=== PATIENT | male | born 1970 | race Caucasian/White ===

== ENCOUNTER 2023-11-06 18:28 | Emergency (ER) | payer BC, SELFPAY ==
[2023-11-06 18:30] VITALS: BP 184/115; PULSE 101; RESP 19; TEMP 36.8; O2SAT 96; BMI 29.1
[2023-11-06 18:31] VITALS: BP 184/115; PULSE 101; RESP 19; TEMP 36.8; O2SAT 96
--- NOTE | 2023-11-06 19:10 | ED.VIS.GI ---
HPI <DARON Manzanares - Last Filed: 11/06/23 20:52> HPI - GI History of Present Illness Chief Complaint: Abd Pain Narrative Narrative: Patient presenting today due to epigastric abdominal pain that radiates to his back that he has had over the past 3 days. He notices that when his stomach is empty his pain is worse, when he eats it seems to get better. He has been taking Tums and Pepto-Bismol which do provide some relief but only for short period of time. He does admit to daily alcohol use and usually drinks 8-10 beers per day. He also primarily eats fast food. He is a daily smoker and has a history of COPD and has been out of his albuterol inhaler. He has had a chronic dry cough for a few months. He denies melena but does report that he has noticed occasional bright red blood with wiping off and on for the past few months, this does not seem to be worse recently. He is unsure if he has hemorrhoids. He does not currently have a PCP and denies any history of abdominal surgery. PFSH <DARON Manzanares - Last Filed: 11/06/23 20:52> [facility] Home Medications ?Medication ?Instructions ?Recorded ?Last Taken ?Type albuterol sulfate 90 mcg/actuation 2 puff inhalation Q4H PRN PRN 11/06/23 Unknown History aerosol inhaler wheezing albuterol sulfate 90 mcg/actuation 1 - 2 puff inhalation Q4H PRN PRN 11/06/23 Unknown Rx aerosol inhaler (Ventolin HFA) Wheezing #1 inh pantoprazole 40 mg tablet,delayed 40 mg PO DAILY #20 tabs 11/06/23 Unknown Rx release (Protonix) Allergy/AdvReac Type Severity Reaction Status Date / Time No Known Allergies Allergy Verified 11/06/23 18:32 Social History Smoking Status: Unknown if ever smoked ROS <DARON Manzanares - Last Filed: 11/06/23 20:52> ROS ED Constitutional Constitutional ED: Denies fever(s) Cardiovascular Cardiovascular: Denies chest pain Respiratory/Chest Respiratory/Chest: Reports cough; Denies dyspnea Gastrointestinal Gastrointestinal: Reports abdominal pain and diarrhea; Denies constipation, melena, nausea or vomiting Genitourinary Genitourinary ED: Denies dysuria or urinary frequency Integumentary Denies rash Neurologic Neurologic: Denies weakness EXAM <DARON Manzanares - Last Filed: 11/06/23 20:52> Physical Exam Const Vital Signs: 11/06/23 18:30 11/06/23 18:31 11/06/23 19:29 Temperature 98.2 F 98.2 F Temperature Source Temporal Temporal Pulse Rate 101 H 101 H 106 H Respiratory Rate 19 H 19 H 16 Respiratory Pattern Normal Blood Pressure 184/115 H 184/115 H Blood Pressure Mean 138 138 Pulse Ox 96 96 Oxygen Delivery Method Room Air Room Air 11/06/23 19:31 11/06/23 20:26 Temperature 98 F 98 F Temperature Source Temporal Pulse Rate 98 91 Respiratory Rate 21 H 20 H Respiratory Pattern Blood Pressure 179/100 H 178/104 H Blood Pressure Mean 126 128 Pulse Ox 95 98 Oxygen Delivery Method Room Air Positive well nourished, well developed and no apparent distress General Appearance ED: well developed HEENT Reports normocephalic and head/scalp atraumatic Mouth ED: Yes moist mucous membranes normal Eyes PERRL and EOMs intact bilaterally Neck full ROM and supple Chest Wall inspection of chest normal Resp normal respiratory effort and clear to auscultation bilaterally Cardio regular rate and regular rhythm GI non-distended and no masses GI Narrative: Minimal epigastric tenderness to palpation, no rigidity, guarding, or peritoneal signs. Negative Bardales sign, negative McBurney's point tenderness. Palpation: soft Back/Spine normal ROM and normal to inspection Extremity normal to inspection and full ROM Neuro oriented x3, CN's II-XII intact bilaterally, moves all extremities, no focal motor deficits and no sensory deficits noted Sensorium / Orientation: awake and alert Psych mental status grossly normal and thought process normal Skin no rashes or lesions noted and no wounds <Dr. Isra Pozo DO - Last Filed: 11/06/23 20:34> Physical Exam Const Vital Signs: 11/06/23 18:30 11/06/23 18:31 11/06/23 19:29 Temperature 98.2 F 98.2 F Temperature Source Temporal Temporal Pulse Rate 101 H 101 H 106 H Respiratory Rate 19 H 19 H 16 Respiratory Pattern Normal Blood Pressure 184/115 H 184/115 H Blood Pressure Mean 138 138 Pulse Ox 96 96 Oxygen Delivery Method Room Air Room Air 11/06/23 19:31 11/06/23 20:26 Temperature 98 F 98 F Temperature Source Temporal Pulse Rate 98 91 Respiratory Rate 21 H 20 H Respiratory Pattern Blood Pressure 179/100 H 178/104 H Blood Pressure Mean 126 128 Pulse Ox 95 98 Oxygen Delivery Method Room Air [facility] <DARON Manzanares - Last Filed: 11/06/23 20:52> [facility] Narrative Medical decision making narrative: Patient presenting due to epigastric abdominal pain that he has had over the last several days. He does get some relief with Tums and Pepto-Bismol. He does admit to daily alcohol use and primarily eats fast food. I do think his examination is consistent with gastritis. He has a nonsurgical abdomen. He was given a GI cocktail and Protonix which did improve his symptoms. I will give him a prescription for Protonix. I did encourage alcohol and smoking cessation. I did give him information on 180. He reports that he has seen counselors in the past and has been in AA which he did not like. He is not interested in detoxing at this time. He was given breathing treatments here and an albuterol inhaler, chest x-ray negative for any acute findings encourage that he follow-up with his PCP and he will be discharged home in stable condition. I have personally performed a face to face assessment of the patient and have reviewed the MAR[facility] Note. I performed a substantive portion of the visit including all aspects of the following. My lozano findings include: History is 53-year-old alcoholic male sent to the emergency room by urgent care with a chief complaint of abdominal pain and wheezing. Patient is a heavy smoker and is out of his albuterol MDI. States he uses the MDI regularly. He notes over the past several days he has had diarrhea and epigastric discomfort. He notes no nausea or vomiting. He states he drinks heavily daily. He he is an alcoholic. The patient states that he feels better when he eats food but his pain gets worse when he does not have any food in his stomach. He denies any black stool. He sees a nurse practitioner in [place]. Exam is bilateral mild wheezing. No respiratory distress or increased work of breathing. Patient has a protuberant abdomen. Is nontender no guarding or rebound I would not characterize it as surgical. Underneath his tongue he has numerous varicosities but no jaundice. His eyes are light yellow it. Medical Decison Making my independent interpretation of the chest x-ray is no acute process. I will write for the patient to have an albuterol MDI. However he probably needs to be started on an inhaled corticosteroid. Would have him follow-up with primary care. His liver enzymes are consistent with alcohol use. Fortunately however his bilirubin is normal as is his lipase and his alkaline phosphatase platelet platelet count is also normal MCV though is noted to be 95.5. Patient understands that he needs to get help with his drinking but he has a hard time believing that he cannot stop on his own. Patient states he does not like the AA program. He states he is seeing numerous counselors for it. Patient was advised that he was slowly killing himself with his drinking and smoking. 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 I think the patient would benefit from Protonix daily. He received a GI cocktail while he was here which helped. Lab Data Lab results narrative: Sodium 134, creatinine 1.55, AST 60, ALT 80 Labs: Laboratory Results - last 24 hr 11/06/23 19:15 WBC 10.7 RBC 5.08 Hgb 16.5 Hct 48.5 MCV 95.5 H MCH 32.5 H MCHC 34.0 RDW Std Deviation 45.9 H RDW Coeff of Tracey 13.1 Plt Count 275 MPV 9.0 Immature Gran % (Auto) 0.500 Neut % (Auto) 73.3 H Lymph % (Auto) 15.7 L [place] % (Auto) 9.4 Eos % (Auto) 0.1 Baso % (Auto) 1.0 Absolute Neuts (auto) 7.8 H Absolute Lymphs (auto) 1.68 Nucleated RBC % 0 Sodium 134 L Potassium 4.1 Chloride 101 Carbon Dioxide 23.0 Anion Gap 10 BUN 15 Creatinine 1.55 H Estim Creat Clear Calc 68.24 Est GFR (MDRD) Af Amer 61 Est GFR (MDRD) Non-Af 50 L BUN/Creatinine Ratio 9.7 L Glucose 105 Calcium 9.8 Total Bilirubin 0.40 AST 60 H ALT 80 H Alkaline Phosphatase 91 Total Protein 8.3 H Albumin 3.7 Globulin 4.6 H Albumin/Globulin Ratio 0.8 L Lipase 30 Radiography Diagnostic Testing: Clinical Impression(s) from Imaging Studies Chest X-Ray 11/06/23 19:44 IMPRESSION: No acute findings in the chest. Electronically Signed: Ivan Castillo DO at 20:02 EDT , <Dr. Isra Pozo DO - Last Filed: 11/06/23 20:34> [facility] MDM Narrative Medical decision making narrative: I have personally performed a face to face assessment of the patient and have reviewed the MARGAUX Note. I performed a substantive portion of the visit including all aspects of the following. My lozano findings include: History is 53-year-old alcoholic male sent to the emergency room by urgent care with a chief complaint of abdominal pain and wheezing. Patient is a heavy smoker and is out of his albuterol MDI. States he uses the MDI regularly. He notes over the past several days he has had diarrhea and epigastric discomfort. He notes no nausea or vomiting. He states he drinks heavily daily. He he is an alcoholic. The patient states that he feels better when he eats food but his pain gets worse when he does not have any food in his stomach. He denies any black stool. He sees a nurse practitioner in [place]. Exam is bilateral mild wheezing. No respiratory distress or increased work of breathing. Patient has a protuberant abdomen. Is nontender no guarding or rebound I would not characterize it as surgical. Underneath his tongue he has numerous varicosities but no jaundice. His eyes are light yellow it. Medical Decison Making my independent interpretation of the chest x-ray is no acute process. I will write for the patient to have an albuterol MDI. However he probably needs to be started on an inhaled corticosteroid. Would have him follow-up with primary care. His liver enzymes are consistent with alcohol use. Fortunately however his bilirubin is normal as is his lipase and his alkaline phosphatase platelet platelet count is also normal MCV though is noted to be 95.5. Patient understands that he needs to get help with his drinking but he has a hard time believing that he cannot stop on his own. Patient states he does not like the AA program. He states he is seeing numerous counselors for it. Patient was advised that he was slowly killing himself with his drinking and smoking. 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 I think the patient would benefit from Protonix daily. He received a GI cocktail while he was here which helped. History & Record Review Discussion w/independent historian: Patient Lab Data Attestation: I reviewed the patient's lab results. Labs: Laboratory Results - last 24 hr 11/06/23 19:15 WBC 10.7 RBC 5.08 Hgb 16.5 Hct 48.5 MCV 95.5 H MCH 32.5 H MCHC 34.0 RDW Std Deviation 45.9 H RDW Coeff of Tracey 13.1 Plt Count 275 MPV 9.0 Immature Gran % (Auto) 0.500 Neut % (Auto) 73.3 H Lymph % (Auto) 15.7 L [place] % (Auto) 9.4 Eos % (Auto) 0.1 Baso % (Auto) 1.0 Absolute Neuts (auto) 7.8 H Absolute Lymphs (auto) 1.68 Nucleated RBC % 0 Sodium 134 L Potassium 4.1 Chloride 101 Carbon Dioxide 23.0 Anion Gap 10 BUN 15 Creatinine 1.55 H Estim Creat Clear Calc 68.24 Est GFR (MDRD) Af Amer 61 Est GFR (MDRD) Non-Af 50 L BUN/Creatinine Ratio 9.7 L Glucose 105 Calcium 9.8 Total Bilirubin 0.40 AST 60 H ALT 80 H Alkaline Phosphatase 91 Total Protein 8.3 H Albumin 3.7 Globulin 4.6 H Albumin/Globulin Ratio 0.8 L Lipase 30 Radiography Diagnostic Testing: Clinical Impression(s) from Imaging Studies Chest X-Ray 11/06/23 19:44 IMPRESSION: No acute findings in the chest. Electronically Signed: Ivan Castillo DO at 20:02 EDT , Discharge Plan Triage Chief Complaint: Abd Pain ED Midlevel Provider: Mary Dillard ED Provider: Isra Pozo Dx/Rx/DC Orders Clinical Impression: COPD (chronic obstructive pulmonary disease), Gastritis, Alcohol abuse Instructions: ED Gastritis (Adult), ED Alcohol Abuse Prescriptions: New pantoprazole [Protonix] 40 mg tablet,delayed release (DR/EC) 40 mg PO DAILY Qty: 20 0RF albuterol sulfate [Ventolin HFA] 90 mcg/actuation HFA aerosol inhaler 1 - 2 puff inhalation Q4H PRN PRN (Reason: Wheezing) Qty: 1 0RF No Action albuterol sulfate 90 mcg/actuation HFA aerosol inhaler 2 puff inhalation Q4H PRN PRN (Reason: wheezing) Stand Alone Forms: ED Work / School Excuse Primary Care Provider: Care Physician,No Primary Referrals: Care Physician,No Primary [Primary Care Provider] - Activity Restrictions/Additional Instructions: Try to avoid greasy, fried, and fast foods, a well-balanced diet with fruits and vegetables is encouraged. Your liver enzymes are elevated, [facility] [employer] is a resource in town if you decide you would like help with stopping drinking. [address] [place] [address]. ? . Follow-up with your PCP and return for any worsening of your symptoms. Print Language: Panamanian Disposition Disposition: Home, Self Care Discharge Date/Time: 11/06/23 20:27
[2023-11-06 19:23] LABS: Absolute Lymphocyte Count 1.68 X10^3/uL (0.83-4.51); Absolute Neutrophil Count 7.8 X10^3/uL (2.0-7.7); Basophil# 0.11 X10^3/uL; Eosinophil# 0.01 X10^3/uL; Eosinophils% 0.1 % (0-5); Hematocrit 48.5 % (40-54); Hemoglobin 16.5 g/dL (13.0-16.5); Lymphocyte # 1.68 X10^3/ul (0.83-4.51); Lymphocyte % 15.7 % (19-41); Mean Corpuscular Hgb 32.5 pg (27.0-32.0); Mean Corpuscular Volume 95.5 fL (80-94); Monocyte# 1.01 X10^3/uL; Monocyte% 9.4 % (0-10); NRBC Flagged by Analyzer 0 % (0-5); Neutrophil # 7.83 X10^3/uL (2.7-7.7); Neutrophil % 73.3 % (47-70); Platelet Count 275 K/mm3 (150-450); RBC Distribution Width CV 13.1 % (11.6-14.6); RBC Distribution Width SD 45.9 fl (35.1-43.9); Red Blood Count 5.08 M/mm3 (4.6-6.2); White Blood Count 10.7 K/mm3 (4.4-11.0)
[2023-11-06 19:29] VITALS: PULSE 106; RESP 16
[2023-11-06] MEDS: Albuterol 2.5 MG/3 ML VIAL.NEB. INHALATION (19:29)
[2023-11-06] MEDS: Mag Hydrox/Al Hydrox/Simeth 30 ML UDC PO (19:29)
[2023-11-06] MEDS: Ipratropium/Albuterol Sulfate 3 ML AMPUL.NEB INHALATION (19:29)
[2023-11-06] MEDS: Lidocaine 2% Viscous15 ML UDC 15 ML PO (19:29)
[2023-11-06 19:31] VITALS: BP 179/100; PULSE 98; RESP 21; TEMP 36.6; O2SAT 95
[2023-11-06 19:41] LABS: ALB/GLOB Ratio 0.8 RATIO (0.9-2.4); AST(SGOT) 60 U/L (15-37); Alanine Aminotransfer ALT/SGPT 80 U/L (16-61); Albumin, Serum 3.7 g/dL (3.2-5.0); Alkaline Phosphatase 91 U/L (45-117); Anion Gap 10 (5-15); BUN 15 mg/dL (7-18); BUN/Creat Ratio 9.7 RATIO (10-20); Calcium,Total 9.8 mg/dL (8.5-10.1); Chloride 101 mmol/L (98-107); Creatinine, Serum 1.55 mg/dL (0.70-1.30); EST Glomerular Filtration Rate 50 mL/min (>60); Est Glom Filt Rate - Afr Amer 61 mL/min (>60); Estimated Creatinine Clearance 68.24 ml/min; Globulin 4.6 g/dL (2.2-4.2); Glucose 105 mg/dL (74-106); Lipase 30 U/L (13-75); Potassium 4.1 mmol/L (3.5-5.1); Protein, Total 8.3 g/dL (6.4-8.2); Sodium Level 134 mmol/L (136-145)
--- NOTE | 2023-11-06 19:44 | RAD_ITS ---
EXAM: XR CHEST, 2 VIEWS CLINICAL INDICATION: cough TECHNIQUE: Frontal and lateral views of the chest. COMPARISON: No relevant prior studies available. FINDINGS: LUNGS AND PLEURAL SPACES: No significant abnormality. No consolidation or edema. No pneumothorax. No effusion. HEART: No significant abnormality. Cardiac silhouette not enlarged. MEDIASTINUM: Central airways and mediastinal contour are unremarkable. BONES/JOINTS: Degenerative changes in the spine. No acute fracture. SOFT TISSUES: No significant abnormality. VASCULATURE: Atherosclerosis. RAD/Chest PA and Lateral IMPRESSION: No acute findings in the chest. Electronically Signed: Ivan Castillo DO at 20:02 EDT ,
[2023-11-06] MEDS: Pantoprazole Sodium 40 MG in 0.9% Normal Saline (100mL MB+) 100 ML 330 MG IV (19:53)
[2023-11-06] MEDS: Albuterol Sulfate 8 gm Inhaler (60 puffs) 2 PUFF INHALATION (20:24)
[2023-11-06 20:26] VITALS: BP 178/104; PULSE 91; RESP 20; TEMP 36.6; O2SAT 98
== END 2023-11-06 20:27 | disposition home or self-care (01) ==
PROVIDERS: Physician Assistant; Emergency Provider Emergency Medicine; Visit Provider Emergency Medicine
DX: J44.9 Chronic obstructive pulmonary disease, unspecified (principal); F10.10 Alcohol abuse, uncomplicated; K29.70 Gastritis, unspecified, without bleeding; R19.7 Diarrhea, unspecified; F17.200 Nicotine dependence, unspecified, uncomplicated
CPT/HCPCS: 71046; 80053; 83690; 85025; 94640; 96365; 99283; J7050; A4216

== ENCOUNTER 2025-02-27 12:37 | Inpatient (IN) | payer SELFPAY ==
[2025-02-27] VITALS (9 sets, daily range): BP systolic 134–240; BP diastolic 79–138; PULSE 88–104; RESP 17–20; TEMP 35.9–37.1; O2SAT 95–99; BMI 30.4
--- NOTE | 2025-02-27 12:53 | EDS_ITS ---
HPI History of Present Illness Chief Complaint: [facility] Medications ?Medication ?Instructions ?Recorded ?Last Taken ?Type albuterol sulfate 90 mcg/actuation 2 puff inhalation Q 4H PRN PRN 11/06/23 Unknown History aerosol inhaler wheezing albuterol sulfate 90 mcg/actuation 1 - 2 puff inhalati on Q4H PRN PRN 11/06/23 Unknown Rx aerosol inhaler (Ventolin HFA) Wheezing #1 inh Allergy/AdvReac Type Severity Reaction Status Date / Time No Known Allergies Allergy Verified 02/27/25 12:40 Social History Smoking Status: Heavy Smoker (>10/day) EXAM Physical Exam Const Vital Signs: 02/27/25 12:38 Temperature 96.6 F L Temperature Source Temporal Pulse Rate 104 H Respiratory Rate 18 Blood Pressure 240/138 H Blood Pressure Mean 172 Pulse Ox 96 Oxygen Delivery Method Room Air [facility] MDM Narrative Medical decision making narrative: HISTORY OF PRESENT ILLNESS: Chief complaint: Alcohol detox 54-year-old male history of alcohol abuse, COPD presents with concern for alcohol abuse. Request admission for detox. No physical complaints at this time. No headache, no chest pain, abdominal pain, back pain or focal weakness REVIEW OF SYSTEMS: Pertinent positives: None reported Pertinent negatives: As per HPI PHYSICAL EXAM: Nursing triage notes reviewed, Vital signs reviewed Constitutional: please see mdm HENT: MMM Eyes: Pupils equal round and reactive to light, Extraocular muscles intact Neck: No stridor, no JVD, full neck ROM Lungs: Clear to auscultation, No wheezing or rales. No increased work of breathing, no conversational dyspnea, no accessory muscle use, no nasal flaring. No respiratory distress noted Heart: Regular rate and rhythm, No murmurs, No rubs and No gallops, 2+ distal pulses (radial, femoral, posterior tibial) in all extremities Abdomen: Soft, there is no tenderness, rigidity, rebound or guarding, no obvious peritoneal signs, no palpable pulsatile abdominal masses, no auscultated abdominal bruit : No CVAT Extremities: No edema Neuro: No new focal neurological deficits, cranial nerves II through XII intact, 5/5 strength in all present extremities. Intact sensation to light touch in all present extremities, 2+ reflexes bilateral patella tendons. Skin: No rash or lesions noted MEDICAL DECISION MAKING: Chief Complaint: please see HPI External records reviewed: Reviewed prior ED record from 2023 for which patient was evaluated for abdominal pain Factors affecting care: none Social determinants of health: none History obtained from others: none Consults: Internal medicine MDM Narrative: The patient is initially hypertensive with blood pressure 240/138, tachycardic. To be alcohol withdrawal I obtained labs for medical clearance ALL IMAGES (IF OBTAINED) HAVE BEEN PERSONALLY REVIEWED AND INTERPRETED BY MYSELF. CBC pending Serum alcohol negative BMP without significant electrolyte abnormalities, hyponatremia likely secondary to beer potomania, noted metabolic acidosis likely secondary to alcohol ketoacidosis, no acute kidney injury Urine tox screen positive cannabinoids otherwise negative On re-evaluation patient's blood pressure improved to 156/101 heart rate improved to 95 he is appropriate for admission with a ramp program Discussed with hospitalist who agreed admit the patient. The patient and/or family, caregivers express understanding. The patient and/or family, caregivers agrees with the plan. Shared decision making: I will have a discussion with the patient and or visitors regarding risk/benefits of further testing or admission. They will be made aware of of the risk/benefits inherent in this decision they will be given the opportunity to voice understanding. Total critical care time today provided was at least 0 minutes. This excludes separately billable procedures. Critical care time (if documented) is secondary to the patient having high probability of clinically significant/life threatening deterioration in the patient's condition which required my urgent intervention. Impression: 1. Alcohol abuse 2. Encounter for alcohol detox 3. Hyponatremia Dispo: Admit to [facility] floor This note was generated with [employer] dictation software. It may contain incorrect words, spelling, and punctuation that were not noted in review of the chart prior to signing. Discharge Plan Triage Chief Complaint: Substance Abuse ED Provider: Gerald Lenz Dx/Rx/DC Orders Prescriptions: No Action albuterol sulfate 90 mcg/actuation HFA aerosol inhaler 2 puff inhalation Q4H PRN PRN (Reason: wheezing) albuterol sulfate [Ventolin HFA] 90 mcg/actuation HFA aerosol inhaler 1 - 2 puff inhalation Q4H PRN PRN (Reason: Wheezing) Qty: 1 0RF Primary Care Provider: Care Physician,No Primary Referrals: NOT,DEFINED [Non-Staff, None] Print Language: Scottish
--- NOTE | 2025-02-27 13:30 | CM.ED ---
Social work Reason for referral: no PCP/insurance Referral source: case find SW identified patient's need for resources and entered patient's room, introducing self and role at [facility]. Patient confirmed lack of PCP due to wanting to change PCP. Patient accepted resources of [facility] Provider Directory and [facility] information. Patient stated living in a camper on patient's son's land. Patient stated needing to apply for Medicaid and patient agreed to having Larisa from [facility] help with this process. Patient stated having no SDOH concerns due to having patient's son there should patient ever be in need. SW called Larisa (ext [phone]) who stated ability to meet with patient following another meeting. No further needs identified at this time. Tasha Bunn, [employer], DATABASE ADMINISTRATION ASSOCIATE
[2025-02-27 13:47] LABS: Immature Granulocytes Count 0.020 X10^3/uL (0.0-0.0); Mean Corp Hgb Conc 37.9 g/dL (32-36); Mean Corpuscular Volume 94.7 fL (80-94); Mean Platelet Vol. 9.8 fl (6.2-12.0); NRBC Flagged by Analyzer 0 % (0-5); POSITIVE COUNT YES; RBC Distribution Width CV 13.9 % (11.6-14.6); RBC Distribution Width SD 48.7 fl (35.1-43.9); White Blood Count 8.5 K/mm3 (4.4-11.0)
[2025-02-27 13:54] LABS: Anion Gap 18 (5-15); BUN 16 mg/dL (4-19); BUN/Creat Ratio 13.9 RATIO (10-20); Calcium,Total 8.1 mg/dL (7.6-11.0); Carbon Dioxide 15.7 mmol/L (21.0-32.0); Chloride 93 mmol/L (98-108); Estimated Creatinine Clearance 91.18 ml/min (50-250); Glucose 181 mg/dL (70-99); Potassium 5.1 mmol/L (3.3-5.1)
[2025-02-27 14:04] LABS: Alcohol, Blood (Medical)-Serum < 10.1 mg/dL (<=10.0)
[2025-02-27] MEDS: Nicotine (PBKC) 21 MG Patch TD (14:26)
--- NOTE | 2025-02-27 14:54 | PCM.HP.STD ---
HPI - General General Date of Admission: 02/27/25 Date of Service: 02/27/25 Chief Complaint: Alcohol detox HPI Narrative JOLENE SAWYER, is a 54 M who presented to [facility] ED on 02/27/2025 for alcohol detox. History significant for alcohol abuse and tobacco dependence. He was last seen in the ED here in October 2023 for suspected alcoholic gastritis. Patient reports drinking 8-12 beers daily. Last drink was night prior to admission. Alcohol level negative in the ED. On arrival to the ED he was severely hypertensive to the 240s over 130s and had mild sinus tachycardia to the 100s. Was otherwise afebrile and stable on room air at rest. Stated that he typically drinks in the morning and felt like he was having alcohol withdrawal symptoms of anxiety and tremors. He was given doses of IV Ativan and p.o. phenobarbital in the ED with significant improvement in his blood pressure to the 140 systolic and heart rate to the 80s. Given desire for detox, hospitalist was contacted for admission. I saw the patient at bedside in the ED. Patient had mild somnolence and facial flushing noted but was otherwise sitting back comfortably in bed and answering questions appropriately. He reported that his withdrawal symptoms were moderately improved after doses of Ativan and phenobarbital. Notes that he has been through alcohol detox in the hospital before but it was over 10 years ago. He smokes about 1 pack of cigarettes daily. He has been told his blood pressure was high in the past but states he exercised more a few years ago and lost some weight with improvement in his blood pressure. Has never been on an antihypertensive before. Patient does report ongoing gastritis type symptoms, similar to what he reported at ED visit last year. States he will take Tums and Pepcid from time to time with only some improvement. Denies any significant acid reflux symptoms. No other acute concerns at this time. Will be admitted for further management. [facility] Home Medications ?Medication ?Instructions ?Recorded ?Last Taken ?Type albuterol sulfate 90 mcg/actuation 2 puff inhalation Q4H PRN PRN 11/06/23 Unknown History aerosol inhaler wheezing albuterol sulfate 90 mcg/actuation 1 - 2 puff inhalation Q4H PRN PRN 11/06/23 Unknown Rx aerosol inhaler (Ventolin HFA) Wheezing #1 inh Allergy/AdvReac Type Severity Reaction Status Date / Time No Known Allergies Allergy Verified 02/27/25 12:40 Social History Smoking Status: Heavy Smoker (>10/day) ROS Constitutional Constitutional: Denies chills, fatigue, fever(s) or weakness Cardiovascular Cardiovascular: Denies chest pain Respiratory/Chest Respiratory/Chest: Denies shortness of breath at rest Gastrointestinal Gastrointestinal: Denies abdominal pain, nausea or vomiting Musculoskeletal Musculoskeletal: Denies arthralgias or myalgias Neurologic Neurologic: Denies dizziness, focal weakness or headache(s) Psychiatric Psychiatric: Reports anxiety Vital Signs Vital Signs Vital Signs: 02/27/25 12:38 02/27/25 13:38 02/27/25 14:00 Temperature 96.6 F L Temperature Source Temporal Pulse Rate 104 H 97 95 Respiratory Rate 18 20 H 18 Blood Pressure 240/138 H 161/104 H 156/101 H Blood Pressure Mean 172 123 119 Pulse Ox 96 97 99 Oxygen Delivery Method Room Air Room Air Weight Weight: 101.803 kg Body Mass Index (BMI) 30.4 Physical Exam Const alert, oriented x3 and no apparent distress Constitutional Narrative: Middle-aged male, class I obesity, mild somnolence and facial flushing noted but otherwise sitting back comfortably in bed, answering questions appropriately, in no acute distress. General Appearance: cooperative and comfortable HEENT normocephalic, head/scalp atraumatic, hearing grossly normal bilaterally, nasal mucous membranes and turbinates normal and moist oral mucous membranes Eyes PERRL, EOMs intact bilaterally and conjunctivae normal Neck full ROM Chest inspection of chest normal Resp normal respiratory effort, normal air movement, no use of accessory muscles and clear to auscultation bilaterally Cardio regular rate, regular rhythm, no murmurs and peripheral pulses 2+ throughout GI normal to inspection, nondistended, normoactive bowel sounds, soft to palpation, non-tender and non-distended Back/Spine normal ROM Extremity normal to inspection, full ROM and no pedal edema Skin no rashes or lesions noted Psych mental status grossly normal Results Lab / Micro Data 02/27/25 12:58 02/27/25 12:58 Labs: Laboratory Results - last 24 hr 02/27/25 12:58: Sodium 126 L, Potassium 5.1, Chloride 93 L, Carbon Dioxide 15.7 L, Anion Gap 18 H, BUN 16, Creatinine 1.17, Estim Creat Clear Calc 91.18, Est GFR (MDRD) Non-Af 75, BUN/Creatinine Ratio 13.9, Glucose 181 H, Calcium 8.1, Ethyl Alcohol < 10.1 Assessment & Plan Assessment/Plan (1) Alcohol abuse: (2) Alcohol withdrawal: (3) Desire for detoxification: PLAN: Plan Patient is a 54-year-old male who presented to [facility] ED on 02/27/2025 for alcohol detox. 1. Alcohol abuse with withdrawal and desire for detox ? Admit under inpatient status to [facility]. Case management consulted. Reports drinking 8-12 beers daily. Last drink on night prior to admission. Alcohol level negative in the ED. Presented with acute withdrawal with severe hypertension, sinus tachycardia and anxiety with tremors that improved with doses of IV Ativan and p.o. phenobarbital. Will treat with phenobarbital and other as needed medications per alcohol withdrawal order set. Appreciate case management assistance. 2. Elevated BP readings ? Initial BP reading in the 240s over 130s in the ED which improved to the 140s over 90s with treatment of alcohol withdrawal. Suspect patient may still of some degree of underlying hypertension. Will order IV hydralazine as needed for SBP greater than 170. Monitor BP and can consider starting p.o. antihypertensives as needed. 3. Hyponatremia ? Sodium 126 on admit, chloride 93. No reported history of hyponatremia. Sodium 134 at ED visit in November 2023. Suspect secondary to poor solute intake in setting of daily beer drinking as above. Urine sodium, urine osmolality and serum osmolality ordered for further evaluation. Will give 1 L of IV normal saline at this time. Follow-up a.m. sodium level. 4. Mild anion gap metabolic acidosis ? Sodium 126, chloride 93, bicarb 15 with anion gap 18 on admit. Glucose normal. Seems most likely secondary to some degree of starvation ketosis in setting of poor solute intake. Given 1 L of normal saline as above and encouraged p.o. intake. Follow-up a.m. BMP. 5. Suspected alcoholic gastritis ? Patient seen in the ED back in November 2023 for symptoms of upper abdominal discomfort especially with eating. Was thought to be due to alcohol gastritis at the time. He was prescribed Protonix and instructed to take Tums as needed. States he had some improvement in his symptoms at that time but is now only been taking either the Protonix or Pepcid intermittently with worsening of symptoms over the past several months. Notes that the discomfort is typically worse with eating. Will reinitiate p.o. Protonix daily at this time. 6. Tobacco dependence ? Smokes about 1 pack of cigarettes daily. Nicotine patch ordered per patient request. Discussed cessation on discharge. 7. Asthma ? Stable on room air at rest, not in acute exacerbation. Continue home albuterol inhaler as needed. DVT prophylaxis: Lovenox CODE STATUS: Full code, verified Expected disposition: TBD Total clinical time spent by myself addressing the patient's medical issues, reviewing all the data, and collaborating with patient's care team: 63 minutes. Charges/Coding Visit Charges Inpatient E&M: 04626 Init Hosp L2
[2025-02-27 14:57] LABS: Barbiturate Urine NEGATIVE (< 200 ng/mL); Benzodiazepine Urine NEGATIVE (< 200 ng/mL); PCP Urine NEGATIVE (< 25 ng/mL); THC Urine PRESUMPTIVE POSITIVE (< 50 ng/mL)
[2025-02-27 15:58] LABS: Hematocrit 43.0 % (40-54); Hemoglobin 15.5 g/dL (13.0-16.5); Red Blood Count 4.45 M/mm3 (4.6-6.2)
[2025-02-27 15:59] LABS: Differential Indicated SCAN CRITERIA MET; Platelet Count 195 K/mm3 (150-450)
[2025-02-27 17:10] LABS: Osmolality, Serum 307 mOsm/KG (275-295)
[2025-02-27 17:18] LABS: Osmolality, Urine 477 mOsm/KG
[2025-02-27 17:53] LABS: AST(SGOT) 170 U/L (<=37); Alanine Aminotransfer ALT/SGPT 160 U/L (<=46); Albumin, Serum 3.4 g/dL (3.5-5.0); Alkaline Phosphatase 293 U/L (40-129); Bilirubin, Direct 0.48 mg/dL (0.00-0.30); Globulin 3.4 g/dL (2.2-4.2)
[2025-02-27 18:28] LABS: Cholesterol 531 mg/dL (<=200); Low Density Lipoprotein Calc. -349 mg/dL; Triglycerides 4368 mg/dL; Very Low Density Lipoprotein 874 mg/dL (5-40); cholesterol:hdl ratio screen 79.97
[2025-02-27] MEDS: hydrOXYzine PAM 25 MG Capsule 50 MG PO (18:54)
[2025-02-27] MEDS: 0.9% Saline Lock 10 ML Syringe IV (18:54)
[2025-02-27] MEDS: 0.9% Normal Saline (1000mL) 1,000 ML 500 ML IV (18:58)
[2025-02-27] MEDS: Oxymetazoline 0.05% 1 SPRAY SPRAY.BTL NASAL (22:58)
[2025-02-28] VITALS (7 sets, daily range): BP systolic 136–156; BP diastolic 83–97; PULSE 78–107; RESP 16–19; TEMP 36.3–36.9; O2SAT 95–98
--- OUTSIDE RECORDS SUMMARY | 2025-02-28 00:44 | XMS RPT_ITS | CCD ---
Author Organization [facility] Inform ion Partnership MEASUREMENT AND VERIFICATION ENGINEER [facility] Care Team Providers Care Senior Accounting Associate Name Role Phone PROVIDER, UNKNOWN Referring Unavailable No, PCP Primary Care Unavailable Denise Vaughan . Attending Unavailable Required, No Pcp Unavailable Unavailable Milly Chavez Unavailable Parvin ELECTRONIC PAGE MAKEUP SYSTEM OPERATOR.Sofie LOZANO Primary Care Provider Isra Pozo Attending Unavailable Care Physician, No Primary Primary Care Unava ilable SOFIE DONATO Attending Unavailable SOFIE DONATO Primary Care Unavailable Medications Current Medications Medication Drug Class(es) Dates Sig (Normalized) Sig (Original) acetaminophen 325 mg / HYDROcodone bitartrate 5 mg oral tablet (1 source) Opioid Agonist Start: 02-22-2021 End: 02-24-2021 take 1 tablet by mouth every six hours Curlew 5 mg-325 mg oral tablet ; 1 tab(s) orally every 6 hours Quantity: 12 Refills: 0 Ordered: 22-Feb-2021 Milly Chavez Start: 22-Feb-2021 End: 24-Feb-2021 Generic Substitution Allowed Comments: Caution [place] law prohibits the transfer of this drug to any person other than the person for whom it was prescribed.May cause drowsiness. Alcohol may intensify this effect. Use care when operating dangerous machinery.This product contains acetaminophen. Do not use with any other product containing acetaminophen to prevent possible liver damage.Using more of this medication than prescribed may cause serious breathing problems. Comment on above: Caution [place] law prohibits the transfer of this drug to any person other than the person for whom it was prescribed.May cause drowsiness. Alcohol may intensify this effect. Use care when operating dangerous machinery.This product contains acetaminophen. Do not use with any other product containing acetaminophen to prevent possible liver damage.Using more of this medication than prescribed may cause serious breathing problems. cephalexin 500 mg oral capsule (2 sources) Cephalosporin Antibacterial Start: 02-22-2021 End: 02-28-2021 take 1 capsule by mouth every six hours Keflex 500 mg oral capsule ; 1 cap(s) orally every 6 hours Quantity: 28 Refills: 0 Ordered: 22-Feb-2021 Milly Chavez Start: 22-Feb-2021 End: 28-Feb-2021 Generic Substitution Allowed Comments: Finish all this medication unless otherwise directed by prescriber. Start: 01-27-2014 End: 02-06-2014 take 1 tablet by mouth three times daily cephalexin 500 mg oral tablet ; 1 tab(s) orally 3 times a day Quantity: 30 Refills: 0 Ordered: 27-Jan-2014 Juan Pablo Solitario Start: 27-Jan-2014 End: 06-Feb-2014 Status: Completed Generic Substitution Allowed Comment on above: Finish all this medi cation unless otherwise directed by prescriber. perflutren lipid microspheres 1.3 mL in NaCl (PF) 0.9% 10 mL injection (DEFINITY) (2 sources) Start: 10-27-2022 End: 01-26-2024 perflutren lipid microspheres 1.3 mL in NaCl (PF) 0.9% 10 mL injection (DEFINITY) 125 ml sodium chloride 9 mg/ml prefilled syringe (2 sources) Start: 10-27-2022 End: 01-26-2024 sodium chloride 0.9 % (flush) 10 mL (BD POSIFLUSH) Completed/Discontinued Medications Medication Drug Class(es) Dates Sig (Normalized) Sig (Original) acetaminophen 325 mg / oxyCODONE hydrochloride 5 mg oral tablet (2 sources) Opioid Agonist Start: 01-27-2014 take 1 tablet by mouth every six hours acetaminophen-oxyC ODONE 325 mg-5 mg oral tablet ; 1 tab(s) orally every 6 hours Quantity: 20 Refills: 0 Ordered: 24-Feb-2014 Bernard Ruth Start: 24-Feb-2014 Status: Completed Generic Substitution Allowed Comments: Caution federal law prohibits the transfer of this drug to any person other than the person for whom it was prescribed.May cause drowsiness. Alcohol may intensify this effect. Use care when operating dangerous machinery.This prescription cannot be refilled.This product contains acetaminophen. Do not use with any other product containing acetaminophen to prevent possible liver damage.Using more of this medication than prescribed may cause serious breathing problems. Comment on above: Caution federal law prohibits the transfer of this drug to any person other than the person for whom it was prescribed.May cause drowsiness. Alcohol may intensify this effect. Use care when operating dangerous machinery.This prescription cannot be refilled.This product contains acetaminophen. Do not use with any other product containing acetaminophen to prevent possible liver damage.Using more of this medication than prescribed may cause serious breathing problems. [id number] 200 actuat albuterol 0.09 mg/actuat metered dose inhaler (6 sources) beta2-Adrenergic Agonist Start: 08-05-2021 End: 09-22-2022 take 2 puff(s) by inhalation every four hours as needed for wheezing albuterol HFA (PROAIR HFA) 90 mcg/actuation inhaler Indications: SOB (shortness of breath) Inhale 2 Puffs as instructed every 4 hours as needed for wheezing/shortness of breath. 1 Each 3 09/22/2022 Active ALBUTEROL HFA 90 MCG INHALER ; INHALE 1 2 PUFFS BY INHALATION ROUTE EVERY 6 HOURS NEEDED Quantity: 0 Refills: 1 Ordered: 22-Feb-2021 Angi Restrepo Generic Substitution Allowed Comments: Source=Surescripts, Medication=ALBUTEROL HFA 90 MCG INHALER, OriginatingSource=[employer] OriginatingProvider=JUAN, RICHARDS, Duration=25, Refills=1, Date Last Modified/Filled=04-Feb-2021 Comment on above: Source=Surescripts, Medication=ALBUTEROL HFA 90 MCG INHALER, OriginatingSource=[employer] [employer] OriginatingProvider=JUAN, RICHARDS, Duration=25, Refills=1, Date Last Modified/Filled=04-Feb-2021 Inhale 2 Puffs as in structed every 4 hours as needed for wheezing/shortness of breath. ascorbic acid 1000 mg extended release oral tablet (1 source) Vitamin C End: 08-28 Ascorbic Acid (VITAMIN C) 1,000 mg TbER Take by mouth. 0 09/22/2022 Discontinued Comment on above: Take by mouth. azelastine hydrochloride 0.137 mg/actuat metered dose nasal spray (1 source) Histamine-1 Receptor Antagonist Star t: 01-15 take 2 spray(s) nasal route once daily at bedtime azelastine 0.1% nasal spray Use 2 Sprays in each nostril daily at bedtime. 30 mL 5 11/03/2022 Active Comment on above: Use 2 Sprays in each nostril daily at bedtime. azithromycin 250 mg oral tablet (1 source) Macrolide Antimicrobial Star t: 07-27 End: 08-28 azithromycin (ZITHROMAX) 250 mg tablet Indications: Upper respiratory tract infection, unspecified type Take two tablets by mouth the first day and then one tablet a day for days 2-5 6 tablet 0 08/05/2021 09/22/2022 Discontinued Comment on above: Take two tablets by mouth the first day and then one tablet a day for days 2-5 dextromethorphan hydrobromide 15 mg / guaiFENesin 400 mg / pseudoephedrine hydrochloride 60 mg oral tablet (2 sources) alpha-Adrenergic Agonist, Uncompetitive S-fslmri-C-aspartate Receptor Antagonist, Sigma-1 Agonist Star t: 09-26 take 1 tablet by mouth every six hours as needed CAPMIST DM 60-15-400 mg tab TAKE 1 TABLET BY MOUTH EVERY 6 HOURS NEEDED FOR 5 DAYS 0 10/13/2022 Active Comment on above: TAKE 1 TABLET BY MISHEL EVERY 6 HOURS NEEDED FOR 5 DAYS fluticasone propionate 0.05 mg/actuat metered dose nasal spray (1 source) Corticosteroid Star t: 01-15 take 2 spray(s) nasal route once daily fluticasone (FLONASE) 50 mcg/actuation nasal spray Use 2 Sprays in each nostril once daily. 1 Each 5 11/03/2022 Active Comment on above: Use 2 Sprays in each nostril once daily. gabapentin 300 mg oral capsule (1 source) Anti-epileptic Agent Star t: 01-29 14 End: 02-26 14 take 1 capsule by mouth three times daily gabapentin 300 mg oral capsule ; 1 cap(s) orally 3 times a day Quantity: 30 Refills: 0 Ordered: 24-Feb-2014 Bernard Ruth Start: 24-Feb-2014 End: 06-Mar-2014 Status: Completed Generic Substitution Allowed Comments: It is very important that you take or use this exactly as directed. Do not skip doses or discontinue unless directed by your doctor.May cause drowsiness. Alcohol may intensify this effect. Use care when operating dangerous machinery. Comment on above: It is very important that you take or use this exactly as directed. Do not skip doses or discontinue unless directed by your doctor.May cause drowsiness. Alcohol may intensify this effect. Use care when operating dangerous machinery. hydrOXYzine pamoate 25 mg oral capsule (1 source) Antihistamine Star t: 07-27 22 End: 08-28 23 take 1 capsule by mouth every twenty-four hours as needed for anxiety and anxiety hydrOXYzine pamoate (VISTARIL) 25 mg capsule Indications: Anxiety Take 1 capsule by mouth at bedtime as needed for anxiety. 30 capsule 0 08/05/2021 09/22/2022 Discontinued Comment on above: Take 1 capsule by [facility] at bedtime as needed for anxiety. ibuprofen 800 mg oral tablet (1 source) Nonsteroidal Anti-inflammatory Drug Star t: 09-26 14 End: 09-27 14 take 1 tablet by mouth three times daily ibuprofen 800 mg oral tablet ; 1 tab(s) orally 3 times a day Quantity: 30 Refills: 0 Ordered: 14-Oct-2013 Jeremy Espino Start: 14-Oct-2013 End: 24-Oct-2013 Status: Completed Generic Substitution Allowed ketorolac tromethamine 10 mg oral tablet (1 source) Nonsteroidal Anti-inflammatory Drug, Cyclooxygenase Inhibitor Star t: 06-17 14 take 1 tablet by mouth every six hours as needed ketorolac 10 mg oral tablet ; 1 tab(s) orally every 6 hours, As Needed- for pain Quantity: 20 Refills: 0 Ordered: 27-Jan-2014 Juan Pablo Solitario Start: 27-Jan-2014 Status: Completed Generic Substitution Allowed Comments: It is very important that you take or use this exactly as directed. Do not skip doses or discontinue unless directed by your doctor.May cause drowsiness or dizziness.Obtain medical advice before taking any non-prescription drugs as some may affect the action of this medication.Take with food or milk. Comment on above: It is very important that you take or use this exactly as directed. Do not skip doses or discontinue unless directed by your doctor.May cause drowsiness or dizziness.Obtain medical advice before taking any non-prescription drugs as some may affect the action of this medication.Take with food or milk. montelukast 10 mg oral tablet (3 sources) Leukotriene Receptor Antagonist Star t: 08-28 End: 06-17 take 1 tablet by mouth once daily at bedtime montelukast (SINGULAIR) 10 mg tablet Indications: Chronic rhinosinusitis Take 1 tablet by mouth daily at bedtime. 30 tablet 2 09/22/2022 10/27/2022 Discontinued (Discontinued by Patient) Comment on above: Take 1 tablet by mishel th daily at bedtime. multivit,thx,calcium ,iron,mins (MULTIVITAMIN AND MINERAL ORAL) (1 source) End: 08-28 multivit,thx,calciu m,iron,mins (MULTIVITAMIN AND MINERAL ORAL) Take by mouth. 0 09/22/2022 Discontinued Comment on above: Take by mouth. Oxymetazoline (1 source) oxymetazoline HC l (AFRIN NASAL) Use in the nose. 0 Active Comment on above: Use in the nose. pseudoephedrine hydrochloride 30 mg oral tablet (1 source) alpha-Adrenergic Agonist take 1 tablet by mouth every four hours as needed pseudoephedrine (SUDAFED) 30 mg tablet Take 30 mg by mouth every 4 hours as needed. 0 Active Comment on above: Take 30 mg by mouth every 4 hours as needed. sulfamethoxazole 800 mg / trimethoprim 160 mg oral tablet (1 source) Dihydrofolate Reductase Inhibitor Antibacterial, Sulfonamide Antimicrobial Star t: 06-17 14 End: 01-27 14 take 1 tablet by mouth twice daily Bactrim DS 800 mg-160 mg oral tablet ; 1 tab(s) orally 2 times a day Quantity: 20 Refills: 0 Ordered: 27-Jan-2014 Juan Pablo Solitario Start: 27-Jan-2014 End: 06-Feb-2014 Status: Completed Generic Substitution Allowed Comments: Avoid prolonged or excessive exposure to direct and/or artificial sunlight while taking this medication.Finish all this medication unless otherwise directed by prescriber.Medicati on should be taken with plenty of water. Comment on above: Avoid prolonged or e xcessive exposure to direct and/or artificial sunlight while taking this medication.Finish all this medication unless otherwise directed by prescriber.Medication should be taken with plenty of water. Problems Active Problems Problem Classification Problem Date Documented Date Episodic/Chronic Abdominal pain (5 sources) Abdominal pain; Translations: [Unspecified abdominal pain] Onset: 07-12-2015 05-24-2021 Episodic Alcohol-related disorders (11 sources) Alcohol abuse; Translations: [Alcohol abuse, uncomplicated] Onset: 09-11-2010 05-06-2019 Chronic Anxiety disorders (1 source) Anxiety disorder, unspecified; Translations: [Anxiety] Onset: 10-04-2024 Chronic Chronic obstructive pulmonary disease and bronchiectasis (2 sources) Chronic obstructive pulmonary disease, unspecified; Translations: [Chronic obstructive pulmonary disease, unspecified] Onset: 06-27-2018 Chronic External cause codes: Unspecified (2 sources) Nosocomial condition; Translations: [Nosocomial condition] Onset: 06-27-2018 Heart valve disorders (1 source) Heart murmur; Translations: [Cardiac murmur, unspecified] Episodic Mood disorders (1 source) Major depressive disorder, single episode, moderate; Translations: [Current moderate episode of major depressive disorder, unspecified whether recurrent (HCC)] Onset: 10-04-2024 Chronic Open wounds of extremities (3 sources) Laceration of finger; Translations: [Open wound of finger] 02-22-2021 Episodic Comment on above: FINGER LACERATION Other ear and sense organ disorders (5 sources) Hearing problem; Translations: [Unspecified hearing loss, bilateral] Onset: 09-22-2022 Chronic Other ear and sense organ disorders (4 sources) Congenital deafness; Translations: [Unspecified sensorineural hearing loss] Onset: 07-13-2016 05-06-2019 Chronic Other fractures (1 source) Open fracture finger distal phalanx, tuft; Translations: [Aftercare for healing traumatic fracture of other bone] 02-22-2021 Episodic Other lower respiratory disease (2 sources) Cough; Translations: [Cough] Onset: 06-27-2018 Episodic Other lower respiratory disease (1 source) Dyspnea; Translations: [Shortness of breath] Episodic Other nervous system disorders (5 sources) Loss of sense of smell; Translations: [Anosmia] Onset: 09-22-2022 Episodic Other nervous system disorders (5 sources) Loss of taste; Translations: [Parageusia] Onset: 09-22-2022 Episodic Other upper respiratory disease (1 source) Chronic rhinitis; Translations: [Chronic rhinitis] Chronic Other upper respiratory disease (1 source) Chronic rhinitis; Translations: [Chronic rhinitis] Chronic Other upper respiratory disease (4 sources) Nasal congestion; Translations: [Nasal congestion] Onset: 09-22-2022 09-22-2022 Episodic Pneumonia (except that caused by tuberculosis or sexually transmitted disease) (2 sources) Pneumonia, unspecified organism; Translations: [Pneumonia, unspecified organism] Onset: 06-27-2018 Episodic Screening and history of mental health and substance abuse codes (1 source) Patient encounter status; Translations: [Encounter for screening for depression] Episodic Substance-related disorders (8 sources) Nicotine dependence, unspecified, uncomplicated; Translations: [Cigarette smoker ] Onset: 07-12-2015 Chronic Unclassified (1 source) Avulsion of finger tip 02-22-2021 Unclassified (1 source) Open fracture of tuft of distal phalanx of finger with routine healing 02-22-2021 Past or Other Problems Problem Classification Problem Date Documented Da te Episodic/Chronic Administrative/social admission (6 sources) Tobacco abuse counseling; Translations: [Homeless] Onset: 07-12-2015 05-24-2021 Episodic Other lower respiratory disease (4 sources) Cough; Translations: [Cough] Onset: 07-12-2015 05-24-2021 Episodic Other lower respiratory disease (1 source) Shortness of breath; Translations: [SOB (shortness of breath)] Onset: 10-04-2024 Episodic Other upper respiratory disease (1 source) Nasal congestion; Translations: [Chronic nasal congestion] Onset: 09-22-2022 Episodic Results Test Name Value Interpretation Reference Range Facility [facility] 02-10-2025 [facility] Telephone (AGPSYACC) -------- DIGNAYOGI ([id number]) 1970 M [place] Date Time Provider Department 02/10/25 ALESHA RACHEL During your visit today, we recorded the following information about you: Marissa Perez Petra 02/10/2025 9:18 AM Signed I called and lvm for patient to call to confirm the appointment rescheduled for 03/13/25 @ 1:00 pm. Marissa Perez February 10, 2025 9:18 AM Allergies As of Date: 02/10/2025 (No Known Allergies) Date Reviewed: 10/04/2024 Reviewed by: Sofie Donato APRN.CORN COOKER - Fully Assessed Prescriptions as of 02/10/2025 - albuterol HFA (PROVENTIL HFA, VENTOLIN HFA) 90 mcg/actuation inhaler INHALE 2 PUFFS BY MOUTH EVERY 4 HOURS NEEDED FOR WHEEZING or SHORTNESS OF BREATH - azelastine 0.1% nasal spray Use 2 sprays in each nostril daily at bedtime. - fluticasone (FLONASE) 50 mcg/actuation nasal spray Use 2 sprays in each nostril once daily. - citalopram hydrobromide (CELEXA) 10 mg tablet Take 1 tablet by mouth once daily. - oxymetazoline HCl (AFRIN NASAL) Use in the nose. - pseudoephedrine (SUDAFED) 30 mg tablet Take 30 mg by mouth every 4 hours as needed. - CAPMIST DM 60-15-400 mg tab TAKE 1 TABLET BY MOUTH EVERY 6 HOURS NEEDED FOR 5 DAYS Meds Comments as of 07/15/2015: Pt denies taking meds daily at home, pt states he has been taking valium 15mg every two hours. Problem List As Of Date 02/10/2025 Noted Resolved ETOH abuse [F10.10] 09/11/2010 Cough [R05.9] 07/12/2015 Abdominal pain [R10.9] 07/12/2015 Homeless [Z59.00] 07/12/2015 Smoking greater than 40 pack years [F17.210] 07/12/2015 Congenital hearing loss [H90.5] 07/13/2016 Chronic nasal congestion [R09.81] 09/22/2022 Loss of smell [R43.0] 09/22/2022 Loss of taste [R43.2] 09/22/2022 Hearing deficit, bilateral [H91.93] 09/22/2022 Uncomplicated alcohol dependence (HCC) [F10.20] 10/27/2022 Encounter Status:Closed by MARISSA PEREZ on 02/10/25 [facility]AG[facility] -------- YOGI SAWYER ([id number]) 1970 [facility] Date Time Provider Department 01/21/25 PSYCH AGPSYACC During your visit today, we recorded the following information about you: Marissa Perez 01/21/2025 10:07 AM Signed I called and left a voice message for the patient to call to schedule a Psychiatry appointment for AUD, Anxiety, Depression per referral from Sofie Donato on the [employer]. Marissa Perez January 21, 2025 10:07 AM Allergies As of Date: 01/21/2025 (No Known Allergies) Date Reviewed: 10/04/2024 Reviewed by: Sofie Donato, JOVANA.CORN COOKER - Fully Assessed Prescriptions as of 01/21/2025 - albuterol HFA (PROVENTIL HFA, VENTOLIN HFA) 90 mcg/actuation inhaler INHALE 2 PUFFS BY MOUTH EVERY 4 HOURS NEEDED FOR WHEEZING or SHORTNESS OF BREATH - azelastine 0.1% nasal spray Use 2 sprays in each nostril daily at bedtime. - fluticasone (FLONASE) 50 mcg/actuation nasal spray Use 2 sprays in each nostril once daily. - citalopram hydrobromide (CELEXA) 10 mg tablet Take 1 tablet by mouth once daily. - oxymetazoline HCl (AFRIN NASAL) Use in the nose. - pseudoephedrine (SUDAFED) 30 mg tablet Take 30 mg by mouth every 4 hours as needed. - CAPMIST DM 60-15-400 mg tab TAKE 1 TABLET BY MOUTH EVERY 6 HOURS NEEDED FOR 5 DAYS Meds Comments as of 07/15/2015: Pt denies taking meds daily at home, pt states he has been taking valium 15mg every two hours. Problem List As Of Date 01/21/2025 Noted Resolved ETOH abuse [F10.10] 09/11/2010 Cough [R05.9] 07/12/2015 Abdominal pain [R10.9] 07/12/2015 Homeless [Z59.00] 07/12/2015 Smoking greater than 40 pack years [F17.210] 07/12/2015 Congenital hearing loss [H90.5] 07/13/2016 Chronic nasal congestion [R09.81] 09/22/2022 Loss of smell [R43.0] 09/22/2022 Loss of taste [R43.2] 09/22/2022 Hearing deficit, bilateral [H91.93] 09/22/2022 Uncomplicated alcohol dependence (HCC) [F10.20] 10/27/2022 Encounter Status:Closed by MARISSA PEREZ on 01/21/25 [facility] 01-14-2025 [facility] Telephone (SoBiz10PSYACC) -------- YOGI SAWYER ([id number]) [address] [facility] Date Time Provider Department 01/14/25 PSYCH AGPSYACC During your visit today, we recorded the following information about you: Marissa Perez 01/14/2025 3:47 PM Signed I called and left a voice message for the patient to call to schedule a Psychiatry appointment for AUD, Anxiety, Depression per referral from Sofie Donato on the Work[employer]. Marissa Perez January 14, 2025 3:47 PM Allergies As of Date: 01/14/2025 (No Known Allergies) Date Reviewed: 10/04/2024 Reviewed by: Sofie Donato APRN.CORN COOKER - Fully Assessed Prescriptions as of 01/14/2025 - albuterol HFA (PROVENTIL HFA, VENTOLIN HFA) 90 mcg/actuation inhaler INHALE 2 PUFFS BY MOUTH EVERY 4 HOURS NEEDED FOR WHEEZING or SHORTNESS OF BREATH - azelastine 0.1% nasal spray Use 2 sprays in each nostril daily at bedtime. - fluticasone (FLONASE) 50 mcg/actuation nasal spray Use 2 sprays in each nostril once daily. - citalopram hydrobromide (CELEXA) 10 mg tablet Take 1 tablet by mouth once daily. - oxymetazoline HCl (AFRIN NASAL) Use in the nose. - pseudoephedrine (SUDAFED) 30 mg tablet Take 30 mg by mouth every 4 hours as needed. - CAPMIST DM 60-15-400 mg tab TAKE 1 TABLET BY MOUTH EVERY 6 HOURS NEEDED FOR 5 DAYS Meds Comments as of 07/15/2015: Pt denies taking meds daily at home, pt states he has been taking valium 15mg every two hours. Problem List As Of Date 01/14/2025 Noted Resolved ETOH abuse [F10.10] 09/11/2010 Cough [R05.9] 07/12/2015 Abdominal pain [R10.9] 07/12/2015 Homeless [Z59.00] 07/12/2015 Smoking greater than 40 pack years [F17.210] 07/12/2015 Congenital hearing loss [H90.5] 07/13/2016 Chronic nasal congestion [R09.81] 09/22/2022 Loss of smell [R43.0] 09/22/2022 Loss of taste [R43.2] 09/22/2022 Hearing deficit, bilateral [H91.93] 09/22/2022 Uncomplicated alcohol dependence (HCC) [F10.20] 10/27/2022 Encounter Status:Closed by MARISSA PEREZ on 01/14/25 [facility] 10-09-2024 [facility] Telephone (AGPositiveIDMPLE) -------- YOGI SAWYER ([id number]) 1970 [facility] Date Time Provider Department 10/09/24 SOFIE DONATO IGLESIAJARED During your visit today, we recorded the following information about you: Barney Redd Neva 10/09/2024 1:58 PM Signed Yogi came into office. He said he called Dr. Blakely's office and was told they were not accepting new patients. He said he was transferred to a scheduling who asked to many personal questions saying he has to have an assessment first before he could be transferred to an office to be scheduled. He was unset. Please advise pt Thank you Dilma Jade MA 10/10/2024 8:01 AM Signed Patient also left an upset VM stating they were recommending an Alcohol assessment. JERRY Whittaker Brittny A, APRN.CNP 10/10/2024 12:53 PM Signed There is a provider in [place] that he can contact to schedule an in person appointment. Олег Weaver- [phone] Brandi De La Garza 10/10/2024 12:58 PM Signed Left message for patient in reference to his request for a call back from the office Allergies As of Date: 10/09/2024 (No Known Allergies) Date Reviewed: 10/04/2024 Reviewed by: Sofie Donato APRN.BLAKE - Fully Assessed Reason for Visit: need referral [Other] Cmt: Pt called Dr. Blakely office and they are not accepting new patients Prescriptions as of 10/10/2024 - albuterol HFA (PROVENTIL HFA, VENTOLIN HFA) 90 mcg/actuation inhaler Inhale 2 puffs as instructed every 4 hours as needed for wheezing/shortness of breath. - azelastine 0.1% nasal spray Use 2 sprays in each nostril daily at bedtime. - fluticasone (FLONASE) 50 mcg/actuation nasal spray Use 2 sprays in each nostril once daily. - citalopram hydrobromide (CELEXA) 10 mg tablet Take 1 tablet by mouth once daily. - busPIRone (BUSPAR) 5 mg tablet Take 1 tablet by mouth three times a day as needed. - oxymetazoline HCl (AFRIN NASAL) Use in the nose. - pseudoephedrine (SUDAFED) 30 mg tablet Take 30 mg by mouth every 4 hours as needed. - CAPMIST DM 60-15-400 mg tab TAKE 1 TABLET BY MOUTH EVERY 6 HOURS NEEDED FOR 5 DAYS Meds Comments as of 07/15/2015: Pt denies taking meds daily at home, pt states he has been taking valium 15mg every two hours. Problem List As Of Date 10/09/2024 Noted Resolved ETOH abuse [F10.10] 09/11/2010 Cough [R05.9] 07/12/2015 Abdominal pain [R10.9] 07/12/2015 Homeless [Z59.00] 07/12/2015 Smoking greater than 40 pack years [F17.210] 07/12/2015 Congenital hearing loss [H90.5] 07/13/2016 Chronic nasal congestion [R09.81] 09/22/2022 Loss of smell [R43.0] 09/22/2022 Loss of taste [R43.2] 09/22/2022 Hearing deficit, bilateral [H91.93] 09/22/2022 Uncomplicated alcohol dependence (HCC) [F10.20] 10/27/2022 Encounter Status:Closed by BARNEY REDD on 10/09/24 [facility] Mitzy 10-07-2024 BLAKEN Telephone (SONY) -------- YOGI SAWYER ([id number]) 1970 M [place] Date Time Provider Department 10/07/24 SOFIE DONATO During your visit today, we recorded the following information about you: Faye Humphreys MA 10/07/2024 1:23 PM Signed Pt. Lm on stating dr. Flanagan office is not accepting new patients and he is completley out of medications. Please advise. Faye HumphreysJERRY Allergies As of Date: 10/07/2024 (No Known Allergies) Date Reviewed: 10/04/2024 Reviewed by: Sofie Donato APRN.CORN COOKER - Fully Assessed Reason for Visit: Patient Question [6186] Prescriptions as of 10/07/2024 - albuterol HFA (PROVENTIL HFA, VENTOLIN HFA) 90 mcg/actuation inhaler Inhale 2 puffs as instructed every 4 hours as needed for wheezing/shortness of breath. - azelastine 0.1% nasal spray Use 2 sprays in each nostril daily at bedtime. - fluticasone (FLONASE) 50 mcg/actuation nasal spray Use 2 sprays in each nostril once daily. - citalopram hydrobromide (CELEXA) 10 mg tablet Take 1 tablet by mouth once daily. - busPIRone (BUSPAR) 5 mg tablet Take 1 tablet by mouth three times a day as needed. - oxymetazoline HCl (AFRIN NASAL) Use in the nose. - pseudoephedrine (SUDAFED) 30 mg tablet Take 30 mg by mouth every 4 hours as needed. - CAPMIST DM 60-15-400 mg tab TAKE 1 TABLET BY MOUTH EVERY 6 HOURS NEEDED FOR 5 DAYS Meds Comments as of 07/15/2015: Pt denies taking meds daily at home, pt states he has been taking valium 15mg every two hours. Problem List As Of Date 10/07/2024 Noted Resolved ETOH abuse [F10.10] 09/11/2010 Cough [R05.9] 07/12/2015 Abdominal pain [R10.9] 07/12/2015 Homeless [Z59.00] 07/12/2015 Smoking greater than 40 pack years [F17.210] 07/12/2015 Congenital hearing loss [H90.5] 07/13/2016 Chronic nasal congestion [R09.81] 09/22/2022 Loss of smell [R43.0] 09/22/2022 Loss of taste [R43.2] 09/22/2022 Hearing deficit, bilateral [H91.93] 09/22/2022 Uncomplicated alcohol dependence (HCC) [F10.20] 10/27/2022 Encounter Status:Closed by FAYE HUMPHREYS on 10/07/24 [facility] CNOVon 10-04-2024 CNOV Office Visit (AGFAMP LE) -------- YOGI SAWYER ([id number]) [address] [facility] Date Time Provider Department 10/04/24 11:40 AM SOFIE DONATO During your visit today, we recorded the following information about you: Temperature Pulse Respiration Blood pressure 97.7 degrees 101/minute 18/minute 172/102 Weight Height 102.1 kg 1.816 m Sofie Donato APRN.CORN COOKER 10/05/2024 8:27 PM Signed CHIEF COMPLAINT: Yogi is a 54-year-old male with a history of paranoia, presenting for evaluation of depression and anxiety. I reviewed past medical, surgical, social, and family histories today and updated chart. Allergies, chronic medications, and supplements were also reviewed. Recording using Phase III Development software for draft documentation of the visit was discussed with the patient/authorized sales representative womens health; all questions welcomed and answered. Patient/authorized sales representative womens health agreed to proceed Depression: - Reports lack of motivation and desire to engage in activities, including work. - Has been calling off work frequently, missing 3-4 days per month over the past several months. - Describes feeling in a bad frame of mind and not wanting to do anything. - Denies feeling bad but acknowledges creating problems by not going to work. - Has been off work all week, missing Monday, Monday, and . - Has tried Wellbutrin in the past but is not currently taking it. - Expresses difficulty with medication adherence due to forgetfulness. - Has a history of being prescribed Zoloft and Risperdal by a psychiatrist 20-25 years ago. - Reports experiencing severe withdrawal symptoms from medications and is hesitant to take medications that require tapering. - Denies being diagnosed with bipolar disorder. - Has a history of being diagnosed with mild paranoia by a psychiatrist in [place]. - Expresses frustration with the cost of healthcare and insurance coverage. - Has a high deductible health plan with a $3,500 deductible and 80% coverage after the deductible is met. - Has an HSA but is concerned about the cost of medical visits and prescriptions. - Expresses frustration with the current state of healthcare and insurance, comparing it to the past when costs were lower. - Reports being a news junkie and feeling overwhelmed by the current state of the world. Anxiety: - Describes himself as a worry whore, constantly worried about something. - Reports feeling tight and anxious when trying to stop drinking alcohol. - Has a history of self-medicating with alcohol and marijuana to cope with anxiety. - Describes alcohol as the only time his brain quits being in overdrive. - Expresses a desire to stop drinking but struggles with anxiety and cravings. - Has tried Ativan in the past and found it helpful for anxiety. - Expresses a desire to try a medication that does not require daily dosing or tapering. PAST MEDICAL HISTORY Diagnosis Date COPD (chronic obstructive pulmonary disease) (HCC) ETOH abuse PAST SURGICAL HISTORY Procedure Laterality Date NONE Social History Tobacco Use Smoking status: Every Day Current packs/day: 1.50 Types: Cigarettes Smokeless tobacco: Current Types: Chew Vaping Use Vaping status: Never Used Substance Use Topics Alcohol use: Yes Comment: drinks beer a few times a week Drug use: Never ALLERGIES No Known Allergies Family History Problem Relation Age of Onset Diabetes Mother Heart disease Mother Obesity Mother Heart disease Father Current Outpatient Medications Medication Sig Dispense Refill albuterol HFA (PROVENTIL HFA, VENTOLIN HFA) 90 mcg/actuation inhaler Inhale 2 puffs as instructed every 4 hours as needed for wheezing/shortness of breath. 8.5 g 3 azelastine 0.1% nasal spray Use 2 sprays in each nostril daily at bedtime. 30 mL 5 fluticasone (FLONASE) 50 mcg/actuation nasal spray Use 2 sprays in each nostril once daily. 1 each 5 citalopram hydrobromide (CELEXA) 10 mg tablet Take 1 tablet by mouth once daily. 90 tablet 2 busPIRone (BUSPAR) 5 mg tablet Take 1 tablet by mouth three times a day as needed. 90 tablet 0 oxymetazoline HCl (AFRIN NASAL) Use in the nose. pseudoephedrine (SUDAFED) 30 mg tablet Take 30 mg by mouth every 4 hours as needed. (Patient not taking: Reported on 10/04/2024) CAPMIST DM 60-15-400 mg tab TAKE 1 TABLET BY MOUTH EVERY 6 HOURS NEEDED FOR 5 DAYS (Patient not taking: Reported on 11/03/2022) No current facility-administered medications for this visit. Review of Systems Ears/Nose/Mouth/Throat: (+) hearing changes Psychiatric: (+) depressed mood, (+) anxiety, (+) lack of motivation BP 172/102 Pulse 101 Temp (Src) 97.7 (Oral) Resp 18 Ht 5' 11.5 (1.82m) Wt 225 lb (102.1kg) SpO2 96% BMI 30.95 kg/(m2). Physical Exam GENERAL: NAD, alert and oriented. SKIN: Unremarkable, no rash or sk (more content not included)... Normal [facility] 10-04-2024 [facility] Telephone (PSYLWM) -------- YOGI SAWYER ([id number]) [address] [facility] Date Time Provider Department 10/04/24 ZORA DUTTA PSYLWM During your visit today, we recorded the following information about you: Donta Wing RN 10/04/2024 12:44 PM Signed Patient calls to schedule a new patient appt with Zora. Referred from Sofie Reeves CNP. Patient requests call back at [phone]. ADONAY Alaniz M Robin, RN 10/07/2024 12:21 PM Signed Pt phoned to check if he can schedule an appt with Zora. Reports he was seen at [facility] last Monday for anxiety/depression. Per encounter's pt saw Sofie Donato CNP, at [facility]. Pt reports Parvin told him to see Zora. Asking if he is going to be able to schedule an appt with Zora? Please advise patient. Zora Dutta APRN.CNP 10/07/2024 1:06 PM Signed Unfortunately I am not able to accept new patients at this time. Please have them call [phone] to schedule an appointment for a virtual visit with another [facility] Provider in our department. They can also call [phone] to schedule an appointment in person or virtual with a [facility] Provider. Donta Wing RN 10/10/2024 11:29 AM Signed See TE 10/09/2024. Donta Wing RN Allergies As of Date: 10/04/2024 (No Known Allergies) Date Reviewed: 10/04/2024 Reviewed by: Sofie Donato APRN.BLAKE - Fully Assessed Reason for Visit: Appointment [[id number]] Prescriptions as of 10/10/2024 - albuterol HFA (PROVENTIL HFA, VENTOLIN HFA) 90 mcg/actuation inhaler Inhale 2 puffs as instructed every 4 hours as needed for wheezing/shortness of breath. - azelastine 0.1% nasal spray Use 2 sprays in each nostril daily at bedtime. - fluticasone (FLONASE) 50 mcg/actuation nasal spray Use 2 sprays in each nostril once daily. - citalopram hydrobromide (CELEXA) 10 mg tablet Take 1 tablet by mouth once daily. - busPIRone (BUSPAR) 5 mg tablet Take 1 tablet by mouth three times a day as needed. - oxymetazoline HCl (AFRIN NASAL) Use in the nose. - pseudoephedrine (SUDAFED) 30 mg tablet Take 30 mg by mouth every 4 hours as needed. - CAPMIST DM 60-15-400 mg tab TAKE 1 TABLET BY MOUTH EVERY 6 HOURS NEEDED FOR 5 DAYS Meds Comments as of 07/15/2015: Pt denies taking meds daily at home, pt states he has been taking valium 15mg every two hours. Problem List As Of Date 10/04/2024 Noted Resolved ETOH abuse [F10.10] 09/11/2010 Cough [R05.9] 07/12/2015 Abdominal pain [R10.9] 07/12/2015 Homeless [Z59.00] 07/12/2015 Smoking greater than 40 pack years [F17.210] 07/12/2015 Congenital hearing loss [H90.5] 07/13/2016 Chronic nasal congestion [R09.81] 09/22/2022 Loss of smell [R43.0] 09/22/2022 Loss of taste [R43.2] 09/22/2022 Hearing deficit, bilateral [H91.93] 09/22/2022 Uncomplicated alcohol dependence (HCC) [F10.20] 10/27/2022 Encounter Status:[facility] YOGI SAWYER ([id number]) 1970 [facility] Date Time Provider Department 10/04/24 SOFIE DONATO During your visit today, we recorded the following information about you: Sandra Castellano MA 10/04/2024 2:41 PM Signed Patient left message stating he explained to Юлия that he did not want to be on anything that could put him in withdraw and he picked up the medication prescribed today and it can do that. Would like to know if something else could be sent in. Also would like to know if he is supposed to follow up with Sofie or psychiatry. Please advise. JERRY Mike Brittny A, APRN.CORN COOKER 10/04/2024 3:14 PM Signed I would prefer that he waits then to see psychiatry for medication recommendations. I can give him something to take as needed for anxiety that will not cause any withdrawal. Faye Humphreys MA 10/04/2024 3:23 PM Signed Patient would like to have something sent over to take as needed for anxiety. Please advise. Faye Humphreys MA Allergies As of Date: 10/04/2024 (No Known Allergies) Date Reviewed: 10/04/2024 Reviewed by: Sofie Donato APRN.CORN COOKER - Fully Assessed Reason for Visit: Patient Question [9057] Primary Visit Diagnosis:Anxiety [F41.9] Order(s):busPIRone (BUSPAR) 5 mg tabletTake 1 tablet by mouth three times a day as needed.Disp: 90 tabletRfl: 0 Prescriptions as of 10/04/2024 - albuterol HFA (PROVENTIL HFA, VENTOLIN HFA) 90 mcg/actuation inhaler Inhale 2 puffs as instructed every 4 hours as needed for wheezing/shortness of breath. - azelastine 0.1% nasal spray Use 2 sprays in each nostril daily at bedtime. - fluticasone (FLONASE) 50 mcg/actuation nasal spray Use 2 sprays in each nostril once daily. - citalopram hydrobromide (CELEXA) 10 mg tablet Take 1 tablet by mouth once daily. - busPIRone (BUSPAR) 5 mg tablet Take 1 tablet by mouth three times a day as needed. - oxymetazoline HCl (AFRIN NASAL) Use in the nose. - pseudoephedrine (SUDAFED) 30 mg tablet Take 30 mg by mouth every 4 hours as needed. - CAPMIST DM 60-15-400 mg tab TAKE 1 TABLET BY MOUTH EVERY 6 HOURS NEEDED FOR 5 DAYS Meds Comments as of 07/15/2015: Pt denies taking meds daily at home, pt states he has been taking valium 15mg every two hours. Problem List As Of Date 10/04/2024 Noted Resolved ETOH abuse [F10.10] 09/11/2010 Cough [R05.9] 07/12/2015 Abdominal pain [R10.9] 07/12/2015 Homeless [Z59.00] 07/12/2015 Smoking greater than 40 pack years [F17.210] 07/12/2015 Congenital hearing loss [H90.5] 07/13/2016 Chronic nasal congestion [R09.81] 09/22/2022 Loss of smell [R43.0] 09/22/2022 Loss of taste [R43.2] 09/22/2022 Hearing deficit, bilateral [H91.93] 09/22/2022 Uncomplicated alcohol dependence (HCC) [F10.20] 10/27/2022 Prescriptions ordered this encounter Disp Refills Start End BUSPIRONE 5 MG TABLET 90 t* 0 10/04/2024 11/03/2024 Route: ORAL Sig: Take 1 tablet by mouth three times a day as needed. Encounter Status:Closed by SOFIE DONATO on 10/04/24 Normal [facility] CBC W/Diff, Automatedon 06- Absolute Lymph 1.68 X10 3/uL Normal 0.83-4.51 [facility] Comment on above: Performed By: #### L 501.2450, L500.4050, L100.0100 #### [facility] [address] [place], [address] Absolute Neut 7.8 X10 3/uL High 2.0-7.7 [facility] Comment on above: Performed By: #### L 501.2450, [id number], L100.0100 #### [facility] [address] [place], [address] Basophils/100 WBC (Bld) 1.0 % Normal 0-1 [facility] Comment on above: Performed By: #### L 501.2450, [id number], L100.0100 #### [facility] [address] [place], [address] Eosinophils/100 WBC (Bld) 0.1 % Normal 0-5 [facility] Comment on above: Performed By: #### L 501.2450, [id number], L100.0100 #### [facility] [address] [place], [address] Erythrocyte distribution width (RBC) [Ratio] 13.1 % Normal 11.6-14.6 [facility] Comment on above: Performed By: #### L 501.2450, [id number], L100.0100 #### [facility] [address] [place], [address] Hematocrit (Bld) [Volume fraction] 48.5 % Normal 40-54 [facility] Comment on above: Performed By: #### L 501.2450, [id number], L100.0100 #### [facility] [address] [place], [address] Hemoglobin (Bld) [Mass/Vol] 16.5 g/dL Normal 13.0-16.5 [facility] Comment on above: Performed By: #### L 501.2450, [id number], L100.0100 #### [facility] [address] [place], [address] IG% 0.500 Normal 0.0-0.9 [facility] Comment on above: Result Comment: IG% - Immature Granulocytes (promyelocytes, myelocytes and metamyelocytes) > 1% indicates that a LEFT SHIFT is Present. Performed By: #### L 501.2450, [id number], L100.0100 #### [facility] [address] [place], [address] Lymphocytes/100 WBC (Bld) 15.7 % Low 19-41 [facility] Comment on above: Performed By: #### L 501.2450, [id number], L100.0100 #### [facility] [address] [place], [address] MCH (RBC) [Entitic mass] 32.5 pg High 27.0-32.0 [facility] Comment on above: Performed By: #### L 501.2450, [id number], L100.0100 #### [facility] [address] [place], [address] MCHC (RBC) [Mass/Vol] 34.0 g/dL Normal 32-36 [facility] Comment on above: Performed By: #### L 501.2450, L500.4050, L100.0100 #### [facility] [address] [place], [address] MCV (RBC) [Entitic vol] 95.5 fL High 80-94 [facility] Comment on above: Performed By: #### L 501.2450, [id number], L100.0100 #### [facility] [address] [place], [address] Monocytes/100 WBC (Bld) 9.4 % Normal 0-10 [facility] Comment on above: Performed By: #### L 501.2450, [id number], L100.0100 #### [facility] [address] [place], [address] Neutrophils/100 WBC (Bld) 73.3 % High 47-70 [facility] Comment on above: Performed By: #### L 501.2450, [id number], L100.0100 #### [facility] [address] [place], [address] Nucleated RBC (Bld) [#/Vol] 0 10*3/uL Normal 0-5 [facility] Comment on above: Performed By: #### L 501.2450, [id number], L100.0100 #### [facility] [address] [place], [address] Platelet mean volume (Bld) [Entitic vol] 9.0 fL Normal 6.2-12.0 [facility] Comment on above: Performed By: #### L 501.2450, [id number], L100.0100 #### [facility] [address] [place], [address] Platelets (Bld) [#/Vol] 275 10*3/uL Normal 150-450 [facility] Comment on above: Performed By: #### L 501.2450, [id number], L100.0100 #### [facility] [address] [place], [address] RBC (Bld) [#/Vol] 5.08 10*6/uL Normal 4.6-6.2 [facility] Comment on above: Performed By: #### L 501.2450, [id number], L100.0100 #### [facility] [address] [place], [address] RDW SD 45.9 fl High 35.1-43.9 [facility] Comment on above: Performed By: #### L 501.2450, [id number], L100.0100 #### [facility] [address] [place], [address] WBC (Bld) [#/Vol] 10.7 10*3/uL Normal 4.4-11.0 [facility] Comment on above: Performed By: #### L 501.2450, [id number], L100.0100 #### [facility] [address] [place], [address] Chest PA and Lateralon 11-05 Chest PA and Lateral [facility] [address] [place] [address] Chest PA and Lateral MR#: [id number] Acct: [id number] Name: DIGNAYOGIT Rep #: [id number] : 1970 M 53 From: Ivan Sharperu david PRADO PCP: Care Physician,No Primary Status: DEP ER Study: Chest PA and Lateral Date of Exam: 11/06/23 Exam# [id number] Ordering Dr: Mary Dillard [id number] EXAM: XR CHEST, 2 VIEWS CLINICAL INDICATION: cough TECHNIQUE: Frontal and lateral views of the chest. COMPARISON: No relevant prior studies available. FINDINGS: LUNGS AND PLEURAL SPACES: No significant abnormality. No consolidation or edema. No pneumothorax. No effusion. HEART: No significant abnormality. Cardiac silhouette not enlarged. MEDIASTINUM: Central airways and mediastinal contour are unremarkable. BONES/JOINTS: Degenerative changes in the spine. No acute fracture. SOFT TISSUES: No significant abnormality. VASCULATURE: Atherosclerosis. RAD/Chest PA and Lateral IMPRESSION: No acute findings in the chest. Electronically Signed: Ivan Castillo DO at 20:02 EDT , CC: DARON Manzanares; No Primary Care Physician Bb Shot Packer: Signed Normal [facility] Comprehensive Metabolic Prof mton 11-06-2023 Albumin [Mass/Vol] 3.7 g/dL Normal 3.2-5.0 [facility] Comment on above: Performed By: #### L 501.2450, [id number], L100.0100 #### [facility] [address] [place], [address] Albumin/Globulin [Mass ratio] 0.8 {ratio} Low 0.9-2.4 [facility] Comment on above: Performed By: #### L 501.2450, [id number], L100.0100 #### [facility] [address] [place], [address] ALK P 91 U/L Normal 45-117 [facility] Comment on above: Performed By: #### L 501.2450, [id number], L100.0100 #### [facility] [address] [place], [address] ALT [Catalytic activity/Vol] 80 U/L High 16-61 [facility] Comment on above: Performed By: #### L 501.2450, [id number], L100.0100 #### [facility] [address] [place], [address] AST [Catalytic activity/Vol] 60 U/L High 15-37 [facility] Comment on above: Result Comment: Slig ht Hemolysis, Result may be falsely increased. Performed By: #### L 501.2450, [id number], L100.0100 #### [facility] [address] [place], [address] Bilirubin [Mass/Vol] 0.40 mg/dL Normal 0.20-1.00 [facility] Comment on above: Result Comment: For patients on eltrombopag therapy, use of Dimension [place] TBIL is not recommended. Performed By: #### L 501.2450, [id number], L100.0100 #### [facility] [address] [place], [address] BUN/CRE 9.7 RATIO Low 10-20 [facility] Comment on above: Performed By: #### L 501.2450, [id number], L100.0100 #### [facility] [address] [place], [address] CA,Total 9.8 mg/dL Normal 8.5-10.1 [facility] Comment on above: Performed By: #### L 501.2450, [id number], L100.0100 #### [facility] [address] [place], [address] Chloride [Moles/Vol] 101 mmol/L Normal 98-107 [facility] Comment on above: Performed By: #### L 501.2450, [id number], L100.0100 #### [facility] [address] [place], [address] CO2 [Moles/Vol] 23.0 mmol/L Normal 21.0-32.0 [facility] Comment on above: Performed By: #### L 501.2450, [id number], L100.0100 #### [facility] [address] [place], [address] Creatinine [Mass/Vol] 1.55 mg/dL High 0.70-1.30 [facility] Comment on above: Result Comment: The validity of the calculated GFR GFRAA in patients over 70 years has not been determined. Clinical correlation is essential. Performed By: #### L 501.2450, L500.4050, L100.0100 #### [facility] [address] [place], [address] ECRCL 68.24 ml/min Normal [facility] Comment on above: Performed By: #### L 501.2450, [id number], L100.0100 #### [facility] [address] [place], [address] EST GFR - AA 61 mL/min Normal >60 [facility] Comment on above: Result Comment: Afri can Welsh GFR Calc Performed By: #### L 501.2450, [id number], L100.0100 #### [facility] [address] [place], [address] GAP 10 Normal 5-15 [facility] Comment on above: Performed By: #### L 501.2450, [id number], L100.0100 #### [facility] [address] [place], [address] GFR/1.73 sq M.predicted among non-blacks MDRD (S/P/Bld) [Vol rate/Area] 50 mL/min/{1.73_m2} Low >60 [facility] Comment on above: Result Comment: Non- GFR Calc Performed By: #### L 501.2450, L500.4050, L100.0100 #### [facility] [address] [place], [address] Globulin (S) [Mass/Vol] 4.6 g/dL High 2.2-4.2 [facility] Comment on above: Performed By: #### L 501.2450, L500.4050, L100.0100 #### [facility] [address] [place], [address] Glucose [Mass/Vol] 105 mg/dL Normal 74-106 [facility] Comment on above: Result Comment: Fast ing Glucose result from 100 to 125 mg/dL suggests IMPAIRED HOMEOSTASIS per A.D.A. criteria. Performed By: #### L 501.2450, L500.4050, L100.0100 #### [facility] [address] [place], [address] Potassium [Moles/Vol] 4.1 mmol/L Normal 3.5-5.1 [facility] Comment on above: Result Comment: Slig ht Hemolysis, Result may be falsely increased. Performed By: #### L 501.2450, L500.4050, L100.0100 #### [facility] Laboratory [address] [place], [address] Sodium [Moles/Vol] 134 mmol/L Low 136-145 [facility] Comment on above: Performed By: #### L 501.2450, L500.4050, L100.0100 #### [facility] [address] [place], [address] T PROT 8.3 g/dL High 6.4-8.2 [facility] Comment on above: Performed By: #### L 501.2450, L500.4050, L100.0100 #### [facility] [address] [place], [address] Urea nitrogen [Mass/Vol] 15 mg/dL Normal 7-18 [facility] Comment on above: Performed By: #### L 501.2450, L500.4050, L100.0100 #### [facility] [address] [place], [address] Emergency Department Summary on 11-06-2023 Emergency Department Summary [facility] Medical Records Department [address] [place] [address] Emergency Department Summary 11/06/23 MR#: [id number] Acct: [id number] Name: YOGI SAWYER Rep #: [id number] : 1970 53 From: Isra Pozo DO PCP: Care Physician,No Primary Status:DEP ER Location: ED HPI HPI - GI History of Present Illness Chief Complaint: Abd Pain Narrative Narrative: Patient presenting today due to epigastric abdominal pain that radiates to his back that he has had over the past 3 days. He notices that when his stomach is empty his pain is worse, when he eats it seems to get better. He has been taking Tums and Pepto-Bismol which do provide some relief but only for short period of time. He does admit to daily alcohol use and usually drinks 8-10 beers per day. He also primarily eats fast food. He is a daily smoker and has a history of COPD and has been out of his albuterol inhaler. He has had a chronic dry cough for a few months. He denies melena but does report that he has noticed occasional bright red blood with wiping off and on for the past few months, this does not seem to be worse recently. He is unsure if he has hemorrhoids. He does not currently have a PCP and denies any history of abdominal surgery. PFSH PFSH Home Medications ???Medication ???Instructions ???Recorded ???Last Taken ???Type albuterol sulfate 90 mcg/actuation 2 puff inhalation Q4H PRN PRN 11/06/23 Unknown History aerosol inhaler wheezing albuterol sulfate 90 mcg/actuation 1 - 2 puff inhalation Q4H PRN PRN 11/06/23 Unknown Rx aerosol inhaler (Ventolin HFA) Wheezing #1 inh pantoprazole 40 mg tablet,delayed 40 mg PO DAILY #20 tabs 11/06/23 Unknown Rx release (Protonix) Allergy/AdvReac Type Severity Reaction Status Date / Time No Known Allergies Allergy Verified 11/06/23 18:32 Social History Smoking Status: Unknown if ever smoked ROS ROS ED Constitutional Constitutional ED: Denies fever(s) Cardiovascular Cardiovascular: Denies chest pain Respiratory/Chest Respiratory/Chest: Reports cough; Denies dyspnea Gastrointestinal Gastrointestinal: Reports abdominal pain and diarrhea; Denies constipation, melena, nausea or vomiting Genitourinary Genitourinary ED: Denies dysuria or urinary frequency Integumentary Denies rash Neurologic Neurologic: Denies weakness EXAM Physical Exam Const Vital Signs: 11/06/23 18:30 11/06/23 18:31 11/06/23 19:29 Temperature 98.2 F 98.2 F Temperature Source Temporal Temporal Pulse Rate 101 H 101 H 106 H Respiratory Rate 19 H 19 H 16 Respiratory Pattern Normal Blood Pressure 184/115 H 184/115 H Blood Pressure Mean 138 138 Pulse Ox 96 96 Oxygen Delivery Method Room Air Room Air 11/06/23 19:31 11/06/23 20:26 Temperature 98 F 98 F Temperature Source Temporal Pulse Rate 98 91 Respiratory Rate 21 H 20 H Respiratory Pattern Blood Pressure 179/100 H 178/104 H Blood Pressure Mean 126 128 Pulse Ox 95 98 Oxygen Delivery Method Room Air Positive well nourished, well developed and no apparent distress General Appearance ED: well developed HEENT Reports normocephalic and head/scalp atraumatic Mouth ED: Yes moist mucous membranes normal Eyes PERRL and EOMs intact bilaterally Neck full ROM and supple Chest Wall inspection of chest normal Resp normal respiratory effort and clear to auscultation bilaterally Cardio regular rate and regular rhythm GI non-distended and no masses GI Narrative: Minimal epigastric tenderness to palpation, no rigidity, guarding, or peritoneal signs. Negative Bardales sign, negative McBurney's point tenderness. Palpation: soft Back/Spine normal ROM and normal to inspection Extremity normal to inspection and full ROM Neuro oriented x3, CN's II-XII intact bilaterally, moves all extremities, no focal motor deficits and no sensory deficits noted Sensorium / Orientation: awake and alert Psych mental status grossly normal and thought process normal Skin no rashes or lesions noted and no wounds Physical Exam Const Vital Signs: 11/06/23 18:30 11/06/23 18:31 11/06/23 19:29 Temperature 98.2 F 98.2 F Temperature Source Temporal Temporal Pulse Rate 101 H 101 H 106 H Respiratory Rate 19 H 19 H 16 Respiratory Pattern Normal Blood Pressure 184/115 H 184/115 H Blood Pressure Mean 138 138 Pulse Ox 96 96 Oxygen Delivery Method Room Air Room Air 11/06/23 19:31 11/06/23 20:26 Temperature 98 F 98 F Temperature Source Temporal Pulse Rate 98 91 Respiratory Rate 21 H 20 H Respiratory Pattern Blood Pressure 179/100 H 178/104 H Blood Pressure Mean 126 128 Pulse Ox 95 98 Oxygen De (more content not included)... Normal [facility] Lipaseon 11-06-2023 Lipase [Catalytic activity/Vol] 30 U/L Normal 13-75 [facility] Comment on above: Result Comment: Mike han note: LIPASE revised reference range effective 22. New Lipase methodology. Expected to produce lower values than the previous assay method. NEW Reference Range: 13 - 75 U/L Performed By: #### L 501.2450, L500.4050, L100.0100 #### [facility] [address] [place], [address] HAND MIN 3 VIEWSon 1 HAND MIN 3 VIEWS STUDY: Hand Radiographs; 02/22/2021 3:34 PM INDICATION: Trauma to right hand at work today. 2nd digit was gauzed and wrapped before x-rays. Pt missing distal phalanx of 3rd digit before accident today. COMPARISON: None available. ACCESSION NUMBER(S): [id number] ORDERING CLINICIAN: MILLY CHAVEZ DO TECHNIQUE: Three view(s) of the right hand. FINDINGS: Soft tissue amputation tip of the second digit. Comminuted fractures the tip of the second distal phalanx. No dislocation. 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 Chronic fracture of the fifth metacarpal. Impression: Soft tissue amputation tip of the second digit. Comminuted fractures the tip of the second distal phalanx. No dislocation. 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 No foreign body identified. Signed by Milly Orta MD Electronically signed by: MILLY ORTA MD Located Within [facility] Provider Note - ED v3on 01-28 Provider Note - ED v3 Provider Note: Chart Review: ED NOTES ED NOTES: HPI: Patient presents for a right index finger injury this occurred at work. He states he is finger got caught in a pneumatic clamp. Patient is right-hand dominant. Unsure of patient's last tetanus. Patient otherwise denies any other pertinent medical history. Describes the pain as sharp and aching. Patient otherwise denies any other injury sitting comfortably in the bed in no acute distress. Review of systems: Positive as above otherwise negative in all lazo. MDM: Given the patient's symptoms x-ray of the hand was obtained which showed minimal nondisplaced comminuted tuft fracture of the right index finger. And soft tissue avulsion. Patient's wound was cleansed I did a digital block using 8 mL of 1% lidocaine. Patient tolerated procedure well. Wound was irrigated and soaked. Patient did have exposed bone. There was no nail or nailbed remaining. Wound was bandaged and splint applied. I spoke with Dr. Ramey of orthopedics who stated the patient could follow-up in the office early this week. Patient was informed of this. Worker's Compensation paper was held out as well. Patient was given Ancef and tetanus here in the ED and Keflex and Curlew for home he understands reasons to return to seek medical attention. HISTORY OF PRESENTING ILLNESS YOGI is a 50 year old Male and was seen by me at 22-Feb-2021 14:53 for a chief complaint of finger pain/injury (Pt. presented to the ed with a right index finger injury. Pt was at work and got his finger caught in a clamp avulsing the nail and tip. Applied a 4x4 and gauze. Minor bleeding noted. Pt. denies any other injuries or pain.)(1). Triage Information: Most recent Vital Sign Value Date Temp (F): 98.2 02-22-2021 14:51 Temp (C): 36.7 02-22-2021 14:51 Heart Rate (beats/min): 106 02-22-2021 14:51 Respirations (breaths/min): 18 02-22-2021 14:51 SpO2 (%): 97 02-22-2021 14:51 BP Systolic (mm Hg): 197 02-22-2021 14:51 BP Diastolic (mm Hg): 106 02-22-2021 14:51 PAST MEDICAL HISTORY ALLERGIES/INTOLERANCES: Intolerance Allergen: narcotic analgesics Type: Drug Category Reaction: Unknown HEALTH HISTORY: No documented data. OUTPATIENT MEDICATIONS: Home Medications Review Status for Reconciliation: Complete Med Status: Patient Currently Takes Medications Drug Name: ALBUTEROL HFA 90 MCG INHALER Instructions: INHALE 1 2 PUFFS BY INHALATION ROUTE EVERY 6 HOURS NEEDED Drug Name: Curlew 5 mg-325 mg oral tablet Instructions: 1 tab(s) orally every 6 hours Drug Name: Keflex 500 mg oral capsule Instructions: 1 cap(s) orally every 6 hours SIGNIFICANT EVENTS: Immunizations Description:Td - Tetanus-Diptheria Description:Tdap PHYSICAL EXAM CONSTITUTIONAL: Well appearing, well nourished, awake, alert, oriented to person, place, time/situation and in no apparent distress. CARDIOVASCULAR: Normal rate, regular rhythm. Heart sounds S1, S2. No murmurs, rubs or gallops. PMI non-displaced. RESPIRATORY: Breath sounds clear and equal bilaterally. MUSCULOSKELETAL: Patient has complete avulsion of the nail and nailbed and surrounding soft tissue up to the DIP on the right index finger. There is exposed tuft. Patient has full flexion and extension intact. Patient has sensation intact proximal to the injury. No other injuries noted. NEUROLOGICAL: Alert and oriented, no focal deficits, no motor or sensory deficits. Of the upper extremities SKIN: Can avulsion as above. DISPOSITION Diagnosis/Annotation: ED Dx Name:Avulsion of finger tip Code:S61.209A Name:Open fracture of tuft of distal phalanx of finger with routine healing Code:S62.639D Disposition: discharged Type: home CONSULT CRITICAL CARE TIME Is this a critically ill patient: no Electronic Signatures: Milly Chavez) (Signed 22-Feb-2021 17:27) Authored: ED Notes, HPI, PMH, PE, Clinical Impression, Attestation, Chart Review, Scores Last Updated: 22-Feb-2021 17:27 by Milly Chavez () References: 1. Data Referenced From Triage - ED 22-Feb-2021 14:51 Normal [facility] Triage - EDon 02-22-2021 Triage - ED Chart Review: ARRIVAL INFORMATION Mode of Arrival: private vehicle CHIEF COMPLAINT YOGI SAWYER is a Male patient with a chief complaint of finger pain/injury (Pt. presented to the ed with a right index finger injury. Pt was at work and got his finger caught in a clamp avulsing the nail and tip. Applied a 4x4 and gauze. Minor bleeding noted. Pt. denies any other injuries or pain.). Onset of the Complaint: 22-Feb-2021 Triage Date/Time: 22-Feb-2021 14:51 RAUDEL: 3 Pain Rating (0-10): 10 = Severe Vital Signs: Temperature: 98.2F ( 36.7C) taken temporal Blood Pressure: 197/106 Mean: Heart Rate: 106 Respiratory Rate: 18 Pulse Oximetry: 97% on room air, no respiratory support. Height: 5 feet 11.00 inches. 180.3 CM Weight: 220.4 pounds. Calculated 100.0 kg. (stated) Calculated BMI (kg/m2): 30.761 Calculated BSA (m2) 2.24 Britney Coma Scale: Best Eye Response: (E4) spontaneous Best Motor Response: (M6) obeys commands Best Verbal Response: (V5) oriented Rebuck Score: 15 Cough lasting greater than 3 weeks: no Allergies: yes Patient has homicidal thoughts: no Symptom Notes: . Symptoms Are POSITIVE For: deformity, numbness and pain (describe). Symptoms Are Negative For: abrasion, bleeding, bruising, difficulty bending, difficulty walking, decreased ROM and tingling. Risk Screens Suicide Risk Screen In the Past Month: Have you wished you were or wished you could go to sleep and not wake up no In the Past Month: Have you had any actual thoughts of killing yourself no In Your Lifetime: Have you ever done anything, started to do anything, or prepared to do anything to end your life no Cast Fall Scale Screening Has the patient fallen before (or is the patient in the ED as a result of a fall) has not had a fall Does the patient have an impaired gait does not have impaired gait Is the patient cognitively impaired not cognitively impaired Interventions: Cast Fall Interventions: LOW INTERVENTIONS: *patient oriented to surroundings and call system, * patient/family falls education completed and documented, *patients fall status communicated during bedside handoff, *whiteboard updated, *mode of toileting discussed with patient, *bed in low position with brakes locked, *call light in reach, * non-skid footwear TRAVEL HISTORY Travel History Coronavirus Screening: no exposure or symptoms Travel Exposure History: NO travel to International locations in the past 30 days PAIN Pain Scale Used: DIRK Pain Rating (0-10): 10 = Severe Past Medical History: Past Medical History Reviewedyes Electronic Signatures: Isra Forrest (EMT-P) (Signed 22-Feb-2021 14:57) Authored: Quick Triage, Risk Screens, Pain, Travel History, Chart Review, Scores, Past Medical History Bee Olivas (RN) (Signed 22-Feb-2021 19:07) Authored: Quick Triage, Chart Review Last Updated: 22-Feb-2021 19:07 by Bee Olivas (RN) Located Within [facility] CR Chest Portableon 06-27-19 19 CR Chest Portable Patient Name: YGOI ADAMS Diagnostic Radiology Exam Date/Time 06/27/2018 18:33:43 EST Exam CR Chest Portable Ordering Physician MD RADHA TALMAGE Accession Number [id number] CPT4 Codes 17253 () Reason For Exam cough, sob Report PORTABLE CHEST CLINICAL INDICATION: Cough and shortness of breath TECHNIQUE: Portable AP COMPARISON: None FINDINGS: The heart and mediastinum are normal. Subtle hazy opacity in the right lung base. The costophrenic angles are sharp. The osseous structures are unremarkable. No pneumothorax. IMPRESSION: 1. A subtle hazy opacity at the right lung base may represent atelectasis, but could represent infection in the appropriate clinical setting. Report Dictated on Final Dictated: 06/27/2018 6:36 pm Dictating Physician: MD GARZA GEORGE RICHARD Signed Date and Time: 06/27/2018 6:38 pm Signed by: MD GARZA GEORGE RICHARD Transcribed Date and Time: 06/27/2018 6:36 Normal [facility] ED Provider Noteon 9 Protein mass conc Emergency Department Encounter [facility] EMERGENCY DEPT Patient: Yogi Sawyer : 1970 Date of Evaluation: 06/27/2018 ED Supervising Physician: Denise Vaughan MD I independently examined and evaluated Yogi Sawyer. In brief, Yogi Sawyer is a 48 y.o. male that presents to the emergency department complaining of cough, wheezing, has a history of asthma Focused exam: Wheezing bilaterally, moderate respiratory distress Brief ED course/MDM: Chest x-ray shows pneumonia, patient given breathing treatments and steroids, we will discharge with antibiotics Critical Care note: This patient was unstable and required constant supervision by me for at least 30 minutes during their visit. The patient's condition requiring intervention included: wheezing, respiratory distress. The interventions included: duonebs, steroids. This critical care time did not include time for procedures or time spent by the physicians certified surgical first assistant if they were caring for this patient. Diagnosis/Plan: cough, wheezing, pneumonia All diagnostic, treatment, and disposition decisions were made by myself in conjunction with the MARGAUX/Resident. For all further details of the patient's emergency department visit, please see their documentation. Comment: Please note this report has been produced using speech recognition software and may contain errors related to that system including errors in grammar, punctuation, and spelling, as well as words and phrases that may be inappropriate. If there are any questions or concerns please feel free to contact the dictating provider for clarification. Denise Vaughan MD Acute Care [facility] Denise Vaughan MD 06/27/182011 [facility] Protein mass conc Emergency DepartmentEncounter [facility] EMERGENCY DEPT Patient: Yogi Sawyer : 1970 Date of Evaluation: 06/27/2018 ED [facility] Provider: Eugenia Layne PA-C EDcare was supervised by Dr. Vaughan who independently examined and evaluated the patient. Please see their attestation note for further details. Chief Complaint Chief Complaint Patient presents with ? Cough x 2 weeks +hoarness nonproductive was given inhaler (empty on arrival) ANTONIO Sawyer is a 48 y.o. male whopresents to the emergency department For evaluation of a cough that has been present for the past 2 weeks. The cough is dry in nature. He does have a history of chronic obstructive pulmonary disease but states that he has been out of his Combivent inhaler. Patient is a current smoker. He denies any pain at this time. Pain scale cannot be assessed. He denies any fevers at home. No chest pain or shortness of breath. No abdominal pain. No nausea or vomiting. No aggravating or alleviating factors for his symptoms. ROS: Review of Systems At least 9 systems reviewed and otherwise acutely negative except as in the [place]. Past History History reviewed. No pertinent past medical history. Past Surgical History: Procedure Laterality Date ? EYE SURGERY 1997 Social History Social History ? Marital status: Single Spouse name: N/A ? Number of children: N/A ? Years of education: N/A Social History Main Topics ? Smoking status: Current Every Day Smoker Packs/day: 1.00 ? Smokeless tobacco: Never Used ? Alcohol use No ? Drug use: No ? Sexual activity: Not Asked Other Topics Concern ? None Social History Narrative ? None Medications/Allergies Discharge Medication List as of 06/27/2018 7:00 PM No Known Allergies Physical Exam ED Triage Vitals [06/27/18 1640] BP Temp Temp Source Pulse Resp SpO2 Height Weight (!) 125/100 98.4 ?F (36.9 ?C) Oral 101 20 97 % 5' 11 (1.803 m) 195 lb (88.5 kg) Physical Exam General: Patient appears to be well-developed and well-nourished. Patient does not appear to be in acute distress. Vital signs noted and reveals no tachypnea, hypoxia or fevers. HEENT: Head appears normocephalic/atraumatic . External ears and nose normal. Oropharynx clear and moist. Ocular exudate noted. Uvula is midline. Tonsils are equal in size. Loss of voice. Neck is supple with no cervical lymphadenopathy. Pupils are round and reactive to light. Cardiac: Regular rate and rhythm. No murmurs heard. Distal pulses intact bilaterally. Pulmonary: Expiratory wheezes noted on exam bilaterally. Patient does not appear to be in acute respiratory distress. Patient is speaking in full sentences without difficulty. No tachypnea accessory muscle use noted. Abdomen: Bowel sounds heard all 4 quadrants. Abdomen is soft and nontender. No rigidity or guarding noted. Extremities: Patient is moving all extremities without difficulty. Extremities appear to be well perfused. Skin: Warm and dry. No wounds, abrasions, lacerations, rashes noted to skin. Neurologic: Alert and oriented ?3. Psychiatric: Mood and behavior normal Diagnostics Labs: No results found for this visit on 06/27/18. Radiographs: Xr Chest Portable Result Date: 06/27/2018 Patient Name: YOGI SAWYER ---Diagnostic Radiology--- Exam Date/Time 06/27/2018 18:33:43 EST Exam CR Chest Portable Ordering Physician [facility] Accession Number [id number] CPT4 Codes 88631 () Reason For Exam cough, sob Report PORTABLE CHEST CLINICAL INDICATION: Cough and shortness of breath TECHNIQUE: Portable AP COMPARISON: None FINDINGS: The heart and mediastinum are normal. Subtle hazy opacity in the right lung base. The costophrenic angles are sharp. The osseous structures are unremarkable. No pneumothorax. IMPRESSION: 1. A subtle hazy opacity at the right lung base may represent atelectasis, but could represent infection in the appropriate clinical setting. Report Dictated on --- Final --- Dictated: 06/27/2018 6:36 pm Dictating Physician: MD GARZA GEORGE RICHARD Signed Date and Time: 06/27/2018 6:38 pm Signed by: MD GARZA GEORGE RICHARD Transcribed Date and Time: 06/27/2018 6:36 EKG: All EKG's areinterpreted by the Emergency Department Physician in the absence of a meter supervisor.?Please see their note for interpretation of EKG. ED Course and MDM In brief, Yogi Sawyer wendy 48 y.o. male who presented to the emergency department For evaluation of a dry cough that has been present for the past 2 weeks. He does have a history of chronic obstructive pulmonary disease. He is a current smoker. He has been out of his Combivent inhaler. On exam, patient is sitting in the chair no acute distress. He is slightly tachycardic with a slightly elevated pressure as well with a reading of 125/100. Afebrile. Expiratory wheezes noted on exam bilaterally. Patient is speaking in full sentences without difficulty and there is no evidence of acute respiratory distress. Satting at 98% on room air. Patient was initially triaged for orders were placed at that time. He was given breathing treatments as well as a dose of prednisone here in the emergency department. Chest x-ray was obtained. Chest x-ray revealed a subtle hazy opacity in the right lung base that may represent atelectasis but also could represent infection as well. On reevaluation, patient was feeling significantly better with the breathing treatments. Informed him of the x-ray results. Patient will be treated for community-acquired pneumonia and given a dose of doxycycline here in the emergency department and given a prescription for the antibiotic that he should take at home as prescribed. Patient was also given a prescription for his Combivent inhaler. He was given smoking cessation instructions. Patient was discharged home in stable condition. Since he is afebrile and only has a heart rate of 101 with no acute respiratory distress, believe that this patient can be managed outpatient with his antibiotics. However, patient was given strict instructions for return. He was advised to follow-up with primary care physician which he was given a referral to internal Medical Center. ED Medication Orders Start Ordered Status Ordering Provider 06/27/18 1900 06/27/18 1855 doxycycline monohydrate (MONODOX) capsule 100 mg ONCE Last JUL action: Given - by ANGELITO SHEFFIELD on 06/27/18 at 1857 EUGENIA LAYNE 06/27/18 17006/27/18 1646 albuterol (PROVENTIL) nebulizer solution 2.5 mg EVERY 15 MIN Last JUL action: Given - by VARGAS MCKEON on 06/27/18 at 1738 DENISE VAUGHAN 06/27/18 1700 06/27/18 1646 ipratropium (ATROVENT) 0.02 % nebulizer solution 0.5 mg EVERY 15 MIN Last MAR action: Given - by VARGAS MCKEON on 06/27/18 at 1738 DENISE VAUGHAN 06/27/18 1700 06/27/18 1646 predniSONE (DELTASONE) tablet 60 mg ONCE Last JUL action: Given - by WANDA PARKS on 06/27/18 at 1734 DENISE VAUGHAN Final Impression 1. Community acquired pneumonia of right lower lobe of lung (HCC) 2. Personal history of chronic obstructive pulmonary disease 3. Current smoker 4. Encounter for smoking cessation counseling DISPOSITION Decision To Discharge 06/27/2018 06:56:06 PM (Please note that portions of this note may have been completed with a voice recognition program. Efforts were made to edit the dictations but occasionally words aremis-transcribed.) Eugenia Layne PA-C [employer] Eugenia Layne PA-C 06/27/181954 [facility] Vital Signs Date Time Vital Sign Value Performing Clinician Facility 10-27-2022 09:37-0400 Diastolic blood pressure 84 mm[Hg] Sofie Queden ELECTRONIC PAGE MAKEUP SYSTEM OPERATOR.[employer] Work Phone: [facility] 10-27-2022 09:37-0400 Systolic blood pressure 144 mm[Hg] Sofie Queden ELECTRONIC PAGE MAKEUP SYSTEM OPERATOR.[employer] Work Phone: [facility] 10-27-2022 09:01-0400 Body height 181.6 cm Sofie Queden ELECTRONIC PAGE MAKEUP SYSTEM OPERATOR.CORN COOKER Work Phone: [facility] 10-27-2022 09:01-0400 Body temperature 98.1 [degF] Sofie Queden ELECTRONIC PAGE MAKEUP SYSTEM OPERATOR.CORN COOKER Work Phone: [facility] 10-27-2022 09:01-0400 Body weight 102.06 kg Sofie Queden ELECTRONIC PAGE MAKEUP SYSTEM OPERATOR.CORN COOKER Work Phone: [facility] 10-27-2022 09:01-0400 Heart rate 77 /min Sofie Queden ELECTRONIC PAGE MAKEUP SYSTEM OPERATOR.CORN COOKER Work Phone: [facility] 09-22-2022 12:03-0400 Diastolic blood pressure 82 mm[Hg] Sofie Queden ELECTRONIC PAGE MAKEUP SYSTEM OPERATOR.CORN COOKER Work Phone: [facility] 09-22-2022 12:03-0400 Systolic blood pressure 150 mm[Hg] Sofie Queden ELECTRONIC PAGE MAKEUP SYSTEM OPERATOR.CORN COOKER Work Phone: [facility] 09-22-2022 11:20-0400 Body height 181.6 cm Sofie Queden ELECTRONIC PAGE MAKEUP SYSTEM OPERATOR.CORN COOKER Work Phone: [facility] 09-22-2022 11:20-0400 Body temperature 98.2 [degF] Sofie Parvin ELECTRONIC PAGE MAKEUP SYSTEM OPERATOR.CORN COOKER Work Phone: [facility] 09-22-2022 11:20-0400 Body weight 98.88 kg Sofie Quehussain ELECTRONIC PAGE MAKEUP SYSTEM OPERATOR.CORN COOKER Work Phone: [facility] 09-22-2022 11:20-0400 Heart rate 89 /min Sofie Parvin ELECTRONIC PAGE MAKEUP SYSTEM OPERATOR.CORN COOKER Work Phone: [facility] 09-22-2022 11:20-0400 Respiratory rate 20 /min Sofie Naveedden ELECTRONIC PAGE MAKEUP SYSTEM OPERATOR.CORN COOKER Work Phone: [facility] 09-22-2022 11:20-0400 SaO2% (BldA) [Mass fraction] 98 % Sofie Queden ELECTRONIC PAGE MAKEUP SYSTEM OPERATOR.CORN COOKER Work Phone: [facility] 02-22-2021 18:00-0400 Diastolic blood pressure 89 mm[Hg] No Pcp Required [facility] 02-22-2021 18:00-0400 Heart rate 68 /min No Pcp Required [facility] 02-22-2021 18:00-0400 Respiratory rate 18 /min No Pcp Required [facility] 02-22-2021 18:00-0400 SaO2% (BldA) [Mass fraction] 98 % No Pcp Required [facility] 02-22-2021 18:00-0400 Systolic blood pressure 146 mm[Hg] No Pcp Required [facility] 02-22-2021 16:51-0400 Body height 180.3 cm No Pcp Required [facility] 02-22-2021 16:51-0400 Body temperature 98.06 [degF] No Pcp Required [facility] 02-22-2021 16:51-0400 Body weight 100 kg No Pcp Required [facility] Encounters Encounter Date Encounter Type Care Provider Facility Start: 10-04-2024 End: 10-04-2024 ambulatory SOFIE DONATO Facility:[facility] Start: 11-06-2023 End: 11-06-2023 Emergency department patient visit Isra Pozo Facility:[facility] Start: 11-03-2022 End: 11-03-2022 Patient encounter procedure Ganga Newell MD Work Phone: Otolaryngology Comment on above: Chronic rhinitis (Pr imary Dx) Start: 10-27-2022 End: 10-27-2022 Patient encounter procedure Sofie A Parvin ELECTRONIC PAGE MAKEUP SYSTEM OPERATOR.CORN COOKER Work Phone: [facility] Comment on above: ETOH abuse (Primary Dx); Uncomplicated alcohol dependence (HCC); Heart murmur Start: 10-21-2022 Telephone encounter Sofie Donato ELECTRONIC PAGE MAKEUP SYSTEM OPERATOR.CORN COOKER Work Phone: [facility] Comment on above: Appointment; disabil ity form; Referral Request Start: 09-22-2022 End: 09-22-2022 Patient encounter procedure Sofie A Parvin ELECTRONIC PAGE MAKEUP SYSTEM OPERATOR.CORN COOKER Work Phone: [facility] Comment on above: Chronic rhinosinusit is (Primary Dx); Loss of smell; Loss of taste; Hearing deficit, bilateral; SOB (shortness of breath); Cigarette smoker; Screening for depression Start: 02-22-2021 End: 02-22-2021 Emergency department patient visit Milly Chavez [facility] Emergency 13 Start: 06-27-2018 Emergency department patient visit UNKNOWN PROVIDER [facility] Plan of Treatment Date Care Activity Detail Author Start: 02-22-2031 Urine microalbumin profile DTA P,TDAP,TD (3 - Td or Tdap) [facility] Start: 09-23-2023 COLORECTAL CANCER SCREENING COLORECTAL CANCER SCREENING [facility] Comment on above: Postponed from 05/03 (Declined at this time) Start: 09-23-2023 COVID-19 VACCINE (#1) COVID-19 VACCI NE (#1) [facility] Comment on above: Postponed from 11/01 (Declined at this time) Start: 09-23-2023 PNEUMOCOCCAL (2 - PCV) PNEUMOCOCCAL (2 - PCV) [facility] Comment on above: Postponed from 03/29 (Declined at this time) Start: 09-23-2023 SHINGRIX VACCINE (1 of 2) LEW GRIX VACCINE (1 of 2) [facility] Comment on above: Postponed from 05/03 (Declined at this time) Start: 01-27-2023 Influenza vaccination INFLUENZ A (Season Ended) [facility] Start: 07-14-2018 DIABETES SCREEN DIABETES SCREEN [facility] Start: 2017 COLOGUARD (FIT-DNA) COLOGUARD (FIT-D NA) [facility] Start: 2017 Colonoscopy COLONOSCOPY [facility] Start: [address] COLONOGRAPHY [facility] Start: 2017 FECAL OCCULT BLOOD FECAL OCCULT BLOO D [facility] Start: 2017 SIGMOIDOSCOPY SIGMOIDOSCOPY [facility] Start: 2007 LIPID SCREEN LIPID SCREEN [facility] Start: 1990 HEPATITIS C SCREENING HEPATITIS C SC BUDDY [facility] Start: 1972 HEPATITIS B (1 of 3 - 3-dose series) HEPATITIS B (1 of 3 - 3-dose series) [facility] End: 10-28-2023 ECG COMPLETE ECG COMPLETE ECG Routine Heart murmur 1 Occurrences starting 10/27/2022 until 10/28/2023 [facility] Work Phone: Comment on above: 1 Occurrences starti ng 10/27/2022 until 10/28/2023 End: 10-28-2023 Echocardiography ECHO Cardiology Routine Heart murmur 1 Occurrences starting 10/27/2022 until 10/28/2023 [facility] Work Phone: Comment on above: 1 Occurrences starti ng 10/27/2022 until 10/28/2023 [facility] Immunizations Immunization Date Immunization Notes Care Provider Iglesia garcia 02-22-2021 tetanus toxoid, redu blanca diphtheria toxoid, and acellular pertussis vaccine, adsorbed No Pcp Required [facility] 03-29-2018 influenza, injectabl e, quadrivalent, preservative free Sofie Donato APRN.CNP Work Phone: [facility] 03-29-2018 pneumococcal polysaccharide vaccine, 23 valent Sofie Donato APRN.CNP Work Phone: [facility] 06-12-2015 tetanus toxoid, redu blanca diphtheria toxoid, and acellular pertussis vaccine, adsorbed Sofie Donato ELECTRONIC PAGE MAKEUP SYSTEM OPERATOR.CORN COOKER Work Phone: [facility] 10-14-2013 TD(adult) unspecifie d formulation Sofie Donato ELECTRONIC PAGE MAKEUP SYSTEM OPERATOR.CORN COOKER Work Phone: [facility] Payers Date Payer Category Payer Private Health Insurance [id number] 2023 Self-pay 2023 Unknown [id number] 2022 Unknown 1972 Unknown [id number] Unknown [id number] Social History Date Type Detail Facility [facility] Tobacco smoking consumption unknown [facility] Start: 02-11-2020 End: 11-03-2022 Tobacco smoking status NHIS Smokes tobacco daily [facility] History of tobacco use Cigarette Smoker C [facility] Start: 02-11-2020 End: 11-03-2022 Cigarettes smoked current (pack per day) - Reported 1.5 [facility] Start: 02-11-2020 End: 11-03-2022 Tobacco use and exposure User of smokeless tobacco [facility] History of tobacco use Chews Tobacco [facility] Start: 09-22-2022 End: 11-03-2022 Alcohol intake Current drinker of alcohol (finding) [facility] Start: 09-21-2021 History SDOH Alcohol Frequency 5 [facility] Start: 09-21-2021 History SDOH Alcohol Std Drinks 3 [facility] Start: 05-15-2021 Alcohol Comment drinks beer a few times a week [facility] Start: 1970 Sex Assigned At Not on file C [facility] Clinical Notes 09-22-2022 to 10-04-2024 Ganga Newell MD - 11/03/2022 11:38 AM EDTTelephone Encounter - Wanda Persaud - 10/27/2022 9:41 AM EDTTelephone Encounter - Faye Humphreys MA - 10/27/2022 8:43 AM EDTPatient Instructions Note Date & Type Note Facility 10-04-2024 Note HNO ID: [id number] Author: SOFIE DONATO APRN.CORN COOKER Service: ? Author Type: Nurse Practitioner Type: Progress Notes Filed: 10/05/2024 20:27 Note Text: CHIEF COMPLAINT: Yogi is a 54-year-old male with a history of paranoia, presenting for evaluation of depression and anxiety. I reviewed past medical, surgical, social, and family histories today and updated chart. Allergies, chronic medications, and supplements were also reviewed. Recording using Phase [employer] Development software for draft documentation of the visit was discussed with the patient/authorized sales representative womens health; all questions welcomed and answered. Patient/authorized sales representative womens health agreed to proceed Depression: - Reports lack of motivation and desire to engage in activities, including work. - Has been calling off work frequently, missing 3-4 days per month over the past several months. - Describes feeling in a bad frame of mind and not wanting to do anything. - Denies feeling bad but acknowledges creating problems by not going to work. - Has been off work all week, missing Monday, Monday, and . - Has tried Wellbutrin in the past but is not currently taking it. - Expresses difficulty with medication adherence due to forgetfulness. - Has a history of being prescribed Zoloft and Risperdal by a psychiatrist 20-25 years ago. - Reports experiencing severe withdrawal symptoms from medications and is hesitant to take medications that require tapering. - Denies being diagnosed with bipolar disorder. - Has a history of being diagnosed with mild paranoia by a psychiatrist in [place]. - Expresses frustration with the cost of healthcare and insurance coverage. - Has a high deductible health plan with a $3,500 deductible and 80% coverage after the deductible is met. - Has an HSA but is concerned about the cost of medical visits and prescriptions. - Expresses frustration with the current state of healthcare and insurance, comparing it to the past when costs were lower. - Reports being a news junkie and feeling overwhelmed by the current state of the world. Anxiety: - Describes himself as a worry whore, constantly worried about something. - Reports feeling tight and anxious when trying to stop drinking alcohol. - Has a history of self-medicating with alcohol and marijuana to cope with anxiety. - Describes alcohol as the only time his brain quits being in overdrive. - Expresses a desire to stop drinking but struggles with anxiety and cravings. - Has tried Ativan in the past and found it helpful for anxiety. - Expresses a desire to try a medication that does not require daily dosing or tapering. PAST MEDICAL HISTORY Diagnosis Date COPD (chronic obstructive pulmonary disease) (HCC) ETOH abuse PAST SURGICAL HISTORY Procedure Laterality Date NONE Social History Tobacco Use Smoking status: Every Day Current packs/day: 1.50 Types: Cigarettes Smokeless tobacco: Current Types: Chew Vaping Use Vaping status: Never Used Substance Use Topics Alcohol use: Yes Comment: drinks beer a few times a week Drug use: Never ALLERGIES No Known Allergies Family History Problem Relation Age of Onset Diabetes Mother Heart disease Mother Obesity Mother Heart disease Father Current Outpatient Medications Medication Sig Dispense Refill albuterol HFA (PROVENTIL HFA, VENTOLIN HFA) 90 mcg/actuation inhaler Inhale 2 puffs as instructed every 4 hours as needed for wheezing/shortness of breath. 8.5 g 3 azelastine 0.1% nasal spray Use 2 sprays in each nostril daily at bedtime. 30 mL 5 fluticasone (FLONASE) 50 mcg/actuation nasal spray Use 2 sprays in each nostril once daily. 1 each 5 citalopram hydrobromide (CELEXA) 10 mg tablet Take 1 tablet by mouth once daily. 90 tablet 2 busPIRone (BUSPAR) 5 mg tablet Take 1 tablet by mouth three times a day as needed. 90 tablet 0 oxymetazoline HCl (AFRIN NASAL) Use in the nose. pseudoephedrine (SUDAFED) 30 mg tablet Take 30 mg by mouth every 4 hours as needed. (Patient not taking: Reported on 10/04/2024) CAPMIST DM 60-15-400 mg tab TAKE 1 TABLET BY MOUTH EVERY 6 HOURS NEEDED FOR 5 DAYS (Patient not taking: Reported on 11/03/2022) No current facility-administered medications for this visit. Review of Systems Ears/Nose/Mouth/Throat: (+) hearing changes Psychiatric: (+) depressed mood, (+) anxiety, (+) lack of motivation BP 172/102 Pulse 101 Temp (Src) 97.7 (Oral) Resp 18 Ht 5' 11.5 (1.82m) Wt 225 lb (102.1kg) SpO2 96% BMI 30.95 kg/(m2). Physical Exam GENERAL: NAD, alert and oriented. SKIN: Unremarkable, no rash or skin lesions. HEAD: Normocephalic. EYES: PERRLA, EOMI, conjunctiva clear. EARS: [place] NEURO: Awake, alert and oriented x3, cranial nerves II-XII grossly intact, normal gait, no involuntary motions. A/P: 1. Current moderate episode of major depressive disorder, unspecified whether recurrent (HCC) (F32.1) 2. An (more content not included)... [facility] 11-03-2022 History of Presen t illness Narrative HPI Yogi Sawyer is a 52 year old male who presents with nasal congestion. Patient has been bothered by nasal congestion for some time patient seems to be using the decongestant sprays on and off for some time.. ROS General Weight loss: No Fatigue: No Night sweats:No Cardiac Chest pain:No Fast heart rate:No Swelling in the feet:No Respiratory Short of breath:No Cough:No Wheezing:No Gastrointestinal Nausea:No Vomiting:No Indigestion:No Past medical history, family history, and social history reviewed. PE There were no vitals taken for this visit. General: Patient is awake, alert, NAD. Voice is normal. Skin: normal Eyes: Extraocular motion and Gaze is normal. Ears: Right external auditory canal is normal. TMJ: normal. Right tympanic membranes normal. Left external auditory canal is normal. Left tympanic membrane normal. Nose: Septum is normal. Turbinates are normal. Nasopharynx:normal Oral Cavity/Oropharynx: Lips normal Dentition normal Tongue normal. Tonsils normal. Palate and uvula normal. Pharynx posterior normal Hypopharynx: Base of tongue normal Pyriform sinus normal. Larynx: Vocal cords normal. Epiglottis normal. Post cricoid normal. Salivary glands: Parotid normal. Submandibular and sublingual normal. Thyroid: normal. Lymphatic/Neck: Lymph nodes normal. Neurologic: Facial nerve normal. ASSESSMENT/PLAN: 1. Chronic rhinitis - ICD9: 472.0, ICD10: J31.0 Erin Newell MD Findings will be communicated to the referring physician via mail or electronic medical record. documented in this encounter [facility] 10-27-2022 Miscellaneous Notes Formattin g of this note might be different from the original. The patient was seen today. Wanda Persaud Pt. Has apt. With BQ today. Will given patients information at apt. I will also forward this message to BQ. Faye Humphreys MA Left a message for patient to call back Dilma Jade MA I placed the referral to chemical dependency but this is typically within the CC system. [facility] in [place] provides outpatient rehabilitation for alcohol and substance abuse. [phone] Please see if we can get him in with me this week for an appointment. The patient stopped by the office. He is looking for a referral for an outpatient alcohol rehabilitation facility. He has brought in disability paperwork for his work that he has asked you to fill out for him. He was scheduled by central scheduling for an appointment on 10/31/22, which was first available, at 2:00 pm. If we have any cancellations for next week, we will contact him to see if he can come in sooner. Please contact patient with any information sooner for referral. Thank you. Wanda Persaud documented in this encounter [facility] 10-27-2022 Instructions Sofie Donato APRN.CNP - 10/27/2022 9:09 AM EDT CENTRAL SCHEDULING [phone] documented in this encounter [facility] 10-27-2022 History of Presen t illness Narrative CHIEF COMPLAINT: Yogi Sawyer is a 52 year old male who presents today to discuss his alcohol abuse and is requesting a referral to an outpatient rehabilitation program. He states he has been drinking alcohol since the age of 10 but heavily since high school. On average, he consumes at least a 12 pack of beer daily. He used to drink hard liquor as well but has tried staying away from that recently. He does state that he can go 1-2 days without drinking at times without any side effects including delusions, tremors, N/V, etc. He states he has been on benders before and has had to wean himself down from liquor with beer. He does have an extensive history of DUIs- 6 in total, some he was con convicted of. He has never been to either an inpatient or outpatient rehabilitation facility. His work is allowing him 3 months off work in order to get help. He has brought paperwork in today to have completed. I reviewed past medical, surgical, social, and family histories today and updated chart. Allergies, chronic medications, and supplements were also reviewed. The history is provided by the patient. No crap shooter was used. Alcohol Problem Primary symptoms include agitation. Primary symptoms include no confusion, no somnolence, no loss of consciousness, no seizures, no weakness, no delusions, no hallucinations, no self-injury, no violence, and no intoxication. This is a chronic problem. The current episode started more than 1 week ago. Suspected agents include alcohol. Pertinent negatives include no fever, no injury, no nausea, no vomiting, no bladder incontinence and no bowel incontinence. Associated medical issues do not include addiction treatment, withdrawal syndrome, chronic illness, mental illness or psychiatric history. PAST MEDICAL HISTORY Diagnosis Date COPD (chronic obstructive pulmonary disease) (HCC) ETOH abuse History reviewed. No pertinent surgical history. Social History Tobacco Use Smoking status: Every Day Packs/day: 1.50 Types: Cigarettes Smokeless tobacco: Current Types: Chew Vaping Use Vaping Use: Never used Substance Use Topics Alcohol use: Yes Comment: drinks beer a few times a week Drug use: No ALLERGIES No Known Allergies Family History Problem Relation Age of Onset Diabetes Mother Heart disease Mother Obesity Mother Heart disease Father Current Outpatient Medications Medication Sig Dispense Refill CAPMIST DM 60-15-400 mg tab TAKE 1 TABLET BY MOUTH EVERY 6 HOURS NEEDED FOR 5 DAYS albuterol HFA (PROAIR HFA) 90 mcg/actuation inhaler Inhale 2 Puffs as instructed every 4 hours as needed for wheezing/shortness of breath. 1 Each 3 Current Facility-Administered Medications Medication Dose Route Frequency Provider Last Rate Last Admin perflutren lipid microspheres 1.3 mL in NaCl (PF) 0.9% 10 mL injection (DEFINITY) INTRAVENOUS DIRECTED PRN Sofie Donato, ELECTRONIC PAGE MAKEUP SYSTEM OPERATOR.CORN COOKER sodium chloride 0.9 % (flush) 10 mL (BD POSIFLUSH) 10 mL INTRAVENOUS DIRECTED PRN Sofie Donato, ELECTRONIC PAGE MAKEUP SYSTEM OPERATOR.CORN COOKER Review of Systems Constitutional: Negative for appetite change, chills, diaphoresis, fatigue, fever and unexpected weight change. Respiratory: Negative. Cardiovascular: Negative. Gastrointestinal: Negative for abdominal pain, bowel incontinence, nausea and vomiting. Genitourinary: Negative for bladder incontinence. Neurological: Negative for dizziness, seizures, loss of consciousness, weakness, light-headedness and headaches. Psychiatric/Behavioral: Positive for agitation. Negative for confusion, hallucinations, self-injury, sleep disturbance and suicidal ideas. Alcohol abuse BP 144/84 Pulse 77 Temp 98.1 Ht 5' 11.5 (1.82m) Wt 225 lb (102.1kg) BMI 30.95 kg/(m^2). Physical Exam Vitals and nursing note reviewed. Constitutional: General: He is not in acute distress. Appearance: He is obese. He is not diaphoretic. HENT: Mouth/Throat: Mouth: Mucous membranes are moist. Pharynx: Oropharynx is clear. Eyes: Pupils: Pupils are equal, round, and reactive to light. Cardiovascular: Rate and Rhythm: Normal rate and regular rhythm. Heart sounds: S1 normal and S2 normal. Murmur heard. Systolic murmur is present with a grade of 2/6. Pulmonary: Effort: Pulmonary effort is normal. Breath sounds: Normal breath sounds. Abdominal: General: Bowel sounds are normal. There is no distension. Palpations: Abdomen is soft. Tenderness: There is no abdominal tenderness. Skin: General: Skin is warm and dry. Neurological: Mental Status: He is alert and oriented to person, place, and time. Psychiatric: Attention and Perception: Attention normal. Mood and Affect: Mood is anxious. Behavior: Behavior normal. Behavior is cooperative. Cognition and Memory: Cognition normal. ASSESSMENT/PLAN: 1. ETOH abuse - ICD9: 305.00, ICD10: F10.10 (primary diagnosis) - Consult for chemical dependency was placed in a phone encounter on 10/25/22. Information given for an outpatient rehabilitation program ([facility]) given to the patient in office. He was also given central scheduling number to schedule with [facility] chemical dependency program if he is unable to get help with the local program. - Advised patient not to stop drinking abruptly and he is aware of possible side effects including seizures or . 2. Uncomplicated alcohol dependence (HCC) - ICD9: 303.90, ICD10: F10.20 - See above 3. Heart murmur - ICD9: 785.2, ICD10: R01.1 - Recommend further testing with EKG and echo. - ECHO - ECG COMPLETE New medication(s) prescribed today: None. Counseling completed in adopting health behaviors such as avoiding excessive alcohol use, avoid tobacco use, improve nutrition, and engage in physical activities. Copy of written care plan, clinical summary, treatment plan, new medications, goals, and self management requirements were given to patient. Sofie Donato APRN.CNP documented in this encounter [facility] 09-22-2022 Instructions Sofie Donato APRN.CNP - 09/22/2022 11:39 AM EDT Astepro Azelastine Hydrochloride Allergy Steroid Free Antihistamine Nasal [place] - 60 Metered Sprays [facility] Address [address] [place] [address] Phone Call our [place] office at Dr. Ganga [facility] Mail Code [id number] [address] [place] [address] Appointment:[phone] Desk:[phone] documented in this encounter [facility] 09-22-2022 History of Presen t illness Narrative CHIEF COMPLAINT: Yogi Sawyer is a 52 year old male who presents for chronic sinus congestion. I reviewed past medical, surgical, social, and family histories today and updated chart. Allergies, chronic medications, and supplements were also reviewed. He reports he has had sinus issues for years. He relies on oral decongestants and nasal sprays to be able to breath through his nose. He states he becomes very agitated when he is not able to breath through his nose. He has tried multiple OTC antihistamines without relief. He denies any fevers, purulent nasal discharge. He also notes that he hasn't been able to hear out of his right ear at all. The history is provided by the patient. No crap shooter was used. Sinus Problem This is a chronic problem. The current episode started more than 1 year ago. The problem occurs constantly. The problem has been unchanged. Associated symptoms include congestion and coughing. Pertinent negatives include no chills, diaphoresis, fatigue, fever, headaches, sore throat, swollen glands or vertigo. PAST MEDICAL HISTORY Diagnosis Date COPD (chronic obstructive pulmonary disease) (HCC) ETOH abuse History reviewed. No pertinent surgical history. Social History Tobacco Use Smoking status: Every Day Packs/day: 1.50 Types: Cigarettes Smokeless tobacco: Current Types: Chew Vaping Use Vaping Use: Never used Substance Use Topics Alcohol use: Yes Comment: drinks beer a few times a week Drug use: No ALLERGIES No Known Allergies Family History Problem Relation Age of Onset Diabetes Mother Heart disease Mother Obesity Mother Heart disease Father Current Outpatient Medications Medication Sig Dispense Refill albuterol HFA (PROAIR HFA) 90 mcg/actuation inhaler Inhale 2 Puffs as instructed every 4 hours as needed for wheezing/shortness of breath. 1 Each 3 No current facility-administered medications for this visit. Review of Systems Constitutional: Negative for appetite change, chills, diaphoresis, fatigue, fever and unexpected weight change. HENT: Positive for congestion, hearing loss, sinus pressure and sinus pain. Negative for ear pain, rhinorrhea, sneezing and sore throat. Loss of smell and taste Respiratory: Positive for cough, shortness of breath and wheezing. Negative for chest tightness. Cardiovascular: Negative. Gastrointestinal: Negative. Musculoskeletal: Negative. Neurological: Negative for dizziness, vertigo, light-headedness and headaches. BP 152/98 Pulse 89 Temp 98.2 Resp 20 Ht 5' 11.5 (1.82m) Wt 218 lb (98.9kg) SpO2 98% BMI 29.98 kg/(m^2). Physical Exam Vitals and nursing note reviewed. Constitutional: Appearance: Normal appearance. HENT: Right Ear: Tympanic membrane, ear canal and external ear normal. Left Ear: Tympanic membrane, ear canal and external ear normal. Nose: Nasal tenderness, mucosal edema, congestion and rhinorrhea present. Right Sinus: Maxillary sinus tenderness (pressure) present. Left Sinus: Maxillary sinus tenderness (pressure) present. Mouth/Throat: Mouth: Mucous membranes are moist. Pharynx: Oropharynx is clear. No oropharyngeal exudate or posterior oropharyngeal erythema. Eyes: Pupils: Pupils are equal, round, and reactive to light. Cardiovascular: Rate and Rhythm: Normal rate and regular rhythm. Heart sounds: Normal heart sounds, S1 normal and S2 normal. Pulmonary: Effort: Pulmonary effort is normal. Breath sounds: Normal breath sounds and air entry. No wheezing. Musculoskeletal: Cervical back: Neck supple. Skin: General: Skin is warm and dry. Neurological: Mental Status: He is alert and oriented to person, place, and time. Psychiatric: Mood and Affect: Mood is anxious. Cognition and Memory: Cognition normal. ASSESSMENT/PLAN: 1. Chronic rhinosinusitis - ICD9: 472.0, 473.9, ICD10: J31.0, J32.9 (primary diagnosis) - Recommend establishing with ENT - Supportive care with plenty of fluids, rest, and analgesia prn. - Follow up if symptoms persist or worsen. - CONSULT TO ENT - MONTELUKAST 10 MG TABLET 2. Loss of smell - ICD9: 781.1, ICD10: R43.0 3. Loss of taste - ICD9: 781.1, ICD10: R43.2 4. Hearing deficit, bilateral - ICD9: V41.2, ICD10: H91.93 - CONSULT TO ENT 5. SOB (shortness of breath) - ICD9: 786.05, ICD10: R06.02 - ALBUTEROL SULFATE HFA 90 MCG/ACTUATION AEROSOL INHALER 6. Cigarette smoker - ICD9: 305.1, ICD10: F17.210 - Cessation encouraged. - Physiologic and physical aspects of tobacco addiction as well as strategies for quitting were discussed. - Counseling was given focusing on the harmful effects of this addiction especially given the patient's medical condition(s) which will be worsened because of the chemicals in tobacco. - Counseling was given 3-4 minutes. 7. Screening for depression - ICD9: V79.0, ICD10: Z13.31 - DEPRESSION SCREENING/ASSESSMENT New medication(s) prescribed today: Yes: Meekir. Discussed new medication dosage, usage, goals of therapy, and side effects. Patient has been apprised of any potential drug interactions to be aware of. Patient expresses understanding. Counseling completed in adopting health behaviors such as avoiding excessive alcohol use, avoid tobacco use, improve nutrition, and engage in physical activities. Copy of written care plan, clinical summary, treatment plan, new medications, goals, and self management requirements were given to patient. Sofie Donato APRN.BLAKE documented in this encounter [facility] Evaluation note Diagnosis Chronic rhinosinusitis- Primary Unspecified sinusitis (chronic) Loss of smell Disturbances of sensation of smell and taste Loss of taste Disturbances of sensation of smell and taste Hearing deficit, bilateral SOB (shortness of breath) Shortness of breath Cigarette smoker Tobacco use disorder Screening for depression [facility] Diagnosis ETOH abuse- Primary Alcohol abuse, unspecified [facility] Diagnosis ETOH abuse- Primary Alcohol abuse, unspecified Uncomplicated alcohol dependence (HCC) Other and unspecified alcohol dependence, unspecified drinking behavior Heart murmur Undiagnosed cardiac murmurs [facility] Chronic rhinitis- Primary [facility] Outpatient Procedure (Routine) - Pending Review Specialty Diagnoses / Procedures Referred By Brandon stephen [facility] Diagnoses Heart murmur Procedures ECG COMPLETE ECG ROUTINE ECG W/LEAST 12 LDS W/I&R Sofie Donato APRN.CORN [address] [place] [address] [facility] [place] [address] [place] [address] Referral ID Status Reason Start Date Expiration Date Visits Requested Visits Authorized [id number] Pending Review Auto-Generat ed Referral 10/27/2022 10/27/2023 1 1 * Outpatient Procedure (Routine) - Pending Review Specialty Diagnoses / Procedures Referred By Contac t Referred To Contact [facility] [place] Diagnoses Heart murmur Procedures ECHO ECHO TTHRC R-T 2D W/WOM-MODE COMPL SPEC&COLR D Sofie Donato APRN.[address] [place] [address] [facility] [place] [address] [place] [address] Referral ID Status Reason Start Date Expiration Date Visits Requested Visits Authorized [id number] Pending Review Auto-Generat ed Referral 10/27/2022 10/27/2023 1 1 [facility] Summary Purpose Family History No Family History Records FoundNo Family History Records FoundNo Family History Records FoundNo Family History Records FoundNo Family History Records Found Advance Directives No Advanced Directives Records FoundNo Advanced Directives Records FoundNo Advanced Directives Records FoundNo Advanced Directives Records FoundNo Advanced Directives Records Found Reason for Referral Specialty Diagnoses / Procedures Referred By Contact Referred To Contact Ent - Otolaryngology / [facility] Department Diagnoses Hearing deficit, bilateral Chronic rhinosinusitis Procedures CONSULT TO ENT OFFICE/OUTPATIENT [facility] MDM 60-74 MINUTES Sofie Donato APRN.[address] [place] [address] Ganga Newell MD [address] [address] Referral ID Status Reason Start Date Expiration Date Visits Requested Visits Authorized [id number] Authorized PCP Requested Referral 09/22/2022 09/22/2023 1 1 Specialty Diagnoses / Procedures Referred By Contac t Referred To Contact Diagnoses SOB (shortness of breath) Sofie Donato APRN.[address] [place] [address] Referral ID Status Reason Start Date Expiration Date V isits Requested Visits Authorized [id number] Authorized 08/23/2022 09/22/2023 1 1 Specialty Diagnoses / Procedures Referred By Contac t Referred To Contact [facility] Department Diagnoses ETOH abuse Procedures CONSULT TO CHEMICAL DEPENDENCY Sofie Donato APRN.[address] [place] [address] [place] [address] Referral ID Status Reason Start Date Expiration Date Visits Requested Visits Authorized [id number] Ref Not Required PCP Requested Referral 10/25/2022 10/25/2023 1 1 Additional Source Comments (unrecognized sect ion and content) No Status Records FoundNo Status Records FoundNo Status Records FoundNo Status Records FoundNo Status Records Found INFORMATION SOURCE (unrecogn ized section and content) DATE CREATED AUTHOR 07/17/2018 [facility] DATE CREATED AUTHOR AUTHOR'S ORGANIZ ATION 03/03/2021 [facility] DATE CREATED AUTHOR AUTHOR'S ORGANIZ ATION 01/10/2024 [facility] DATE CREATED AUTHOR AUTHOR'S ORGANIZ ATION 10/11/2024 [facility] DATE CREATED AUTHOR AUTHOR'S ORGANIZ ATION 02/11/2025 [facility] <item> Privacy Markings (unrecogniz ed section and content) Section Author: Grace Martinez PROHIBITION ON REDISCLOSURE OF CONFIDENTIAL INFORMATION This notice accompanies a disclosure of information concerning a client made to you with the consent of such client. Source Comments (unrecognize d section and content) In the event this informatio n is protected by the Federal Confidentiality of Alcohol and Drug Abuse Patient Records regulations: The Federal rules restrict any use of the information to criminally investigate or prosecute any alcohol or drug abuse patient.[facility] the event this information is protected by the Federal Confidentiality of Alcohol and Drug Abuse Patient Records regulations: The Federal rules restrict any use of the information to criminally investigate or prosecute any alcohol or drug abuse patient.[facility] the event this information is protected by the Federal Confidentiality of Alcohol and Drug Abuse Patient Records regulations: The Federal rules restrict any use of the information to criminally investigate or prosecute any alcohol or drug abuse patient.[facility] the event this information is protected by the Federal Confidentiality of Alcohol and Drug Abuse Patient Records regulations: The Federal rules restrict any use of the information to criminally investigate or prosecute any alcohol or drug abuse patient.[facility] Reason for Visit (unrecogniz ed section and content) Reason Comments Sinus Problem Has been having sinu s issues for years Reason Comments Appointment disability form Referral Request Reason Comments Referral Request For drinking. Said sugey contreras brought it up to his work and they will give him 32 months off for help . Went to urgent care for cough finished prendisone is taking campist . Still wanting to get into ENT Reason Comments Nasal Congestion Used Afrin for years 6 months on and 6 months off. This winter nothing has helped. Tried Otc spray which made it worse. Specialty Diagnoses / Procedures Referred By Contact Referred To Contact Ent - Otolaryngology / [facility] Department Diagnoses Hearing deficit, bilateral Chronic rhinosinusitis Procedures CONSULT TO ENT OFFICE/OUTPATIENT [facility] 60-74 MINUTES Sofie Donato, ELECTRONIC PAGE MAKEUP SYSTEM OPERATOR.[address] [place] [address] Ganga Newell MD [address] [address] Referral ID Status Reason Start Date Expiration Date V isits Requested Visits Authorized [id number] Closed PCP Requested Referral 09/22/2022 09/22/2023 1 1 Care Teams (unrecognized sec tion and content) Senior Accounting Associate Relationship Specialty Start Date End Date Sofie Donato, ELECTRONIC PAGE MAKEUP SYSTEM OPERATOR.[address] [place], [place] [id number] PCP - General Family Medicine 06/10/19 Senior Accounting Associate Relationship Specialty Start Date End Date Sofie Donato, ELECTRONIC PAGE MAKEUP SYSTEM OPERATOR.[address] [place], [place] [id number] PCP - General Family Medicine 06/10/19 Senior Accounting Associate Relationship Specialty Start Date End Date Sofie Donato, ELECTRONIC PAGE MAKEUP SYSTEM OPERATOR.[address] [place] [address] PCP - General Family Medicine 06/10/19 Senior Accounting Associate Relationship Specialty Start Date End Date Sofie Dnoato, ELECTRONIC PAGE MAKEUP SYSTEM OPERATOR.[address] [place] [address] PCP - General Family Medicine 06/10/19 FOR RECORDS PERTAINING TO PATIENTS WHO ARE OR HAVE BEEN ENROLLED IN A CHEMICAL DEPENDENCY/SUBSTANCEABUSE PROGRAM, SOME INFORMATION MAY BE OMITTED. This clinical summary was aggregated from multiple sources. Caution should be exercised in using it in the provision of clinical care. This summary normalizes information from multiple sources, and as a consequence, information in this document may materially change the coding, format and clinical context of patient data. In addition, data may be omitted in some cases. CLINICAL DECISIONS SHOULD BE BASED ON THE PRIMARY CLINICAL RECORDS. [employer] provides no warranty or guarantee of the accuracy or completeness of information in this document.
--- NOTE | 2025-02-28 07:00 | US_ITS ---
PROCEDURE: ABDOMEN LIMITED 02/28/2025 REASON FOR EXAM: RUQ US FOR ELEVATED LFTS W/ ABDOMINAL PAIN TECHNIQUE: Procedure Code: USABDL Modality: US Procedure: ABDOMEN LIMITED COMPARISON: None FINDINGS: Liver: Enlarged measuring 20.7 cm with homogeneous increased echogenicity. Gallbladder: Distended measuring 8.4 cm. There is thin wall with sludge demonstrated. No pericholecystic fluid collection. Negative Bardales sign. Common bile duct: Normal measuring 3.8 mm. Pancreas: Obscured by bowel gas. Kidneys: The right kidney measures 11.5 x 5.6 x 5.8 cm. Normal echogenicity and cortex with no hydronephrosis. US/Abdomen Limited IMPRESSION: Fatty hepatomegaly. Distended gallbladder with sludge however no signs to suggest cholecystitis. Reading Location: [place] [address]
[2025-02-28 07:13] LABS: Hematocrit 44.2 % (40-54); Hemoglobin 15.3 g/dL (13.0-16.5); Mean Corp Hgb Conc 34.6 g/dL (32-36); Mean Corpuscular Volume 98.2 fL (80-94); Mean Platelet Vol. 10.0 fl (6.2-12.0); Platelet Count 165 K/mm3 (150-450); RBC Distribution Width CV 14.1 % (11.6-14.6); RBC Distribution Width SD 51.3 fl (35.1-43.9); Red Blood Count 4.50 M/mm3 (4.6-6.2); White Blood Count 7.0 K/mm3 (4.4-11.0)
[2025-02-28 07:18] LABS: Scan Indicated on CBC? Y/N NO
[2025-02-28 07:33] LABS: Anion Gap 18 (5-15); BUN 10 mg/dL (4-19); BUN/Creat Ratio 9.0 RATIO (10-20); Calcium,Total 7.6 mg/dL (7.6-11.0); Carbon Dioxide 13.7 mmol/L (21.0-32.0); Chloride 101 mmol/L (98-108); Estimated Creatinine Clearance 97.87 ml/min (50-250); Glucose 117 mg/dL (70-99); Potassium 5.3 mmol/L (3.3-5.1)
--- NOTE | 2025-02-28 08:18 | NURSING ---
Radiology called and wanted to make sure pt had not ate so they could do Ultrasound that was ordered. Previous shift did not relay the message that pt had to be NPO until Ultrasound was done. Pt already has ate 50% of his meal. Pt will now pt NPO for the next 6-8hrs per Ultrasound.
[2025-02-28 08:25] LABS: AST(SGOT) 122 U/L (<=37); Alanine Aminotransfer ALT/SGPT 131 U/L (<=46); Albumin, Serum 3.1 g/dL (3.5-5.0); Alkaline Phosphatase 218 U/L (40-129); Bilirubin, Direct 0.52 mg/dL (0.00-0.30); CPK Total, Creatine Kinase 314 U/L (24-195); Globulin 2.8 g/dL (2.2-4.2)
[2025-02-28] MEDS: Nicotine (PBKC) 21 MG Patch TD (09:11)
[2025-02-28] MEDS: Thiamine Hydrochloride 100 MG Tablet PO (09:11)
[2025-02-28] MEDS: Oxymetazoline 0.05% 1 SPRAY SPRAY.BTL NASAL ×2 (09:12→18:51)
[2025-02-28 11:39] LABS: FI02 21.0; SITE Not entered; VBG BASE EXCESS 3 mmol/L (-1.0-3.5); VBG PO2 60 mmHg (25-40); VBG SO2 92 % (50-70); VBG TCO2 28 mmol/L (23-33)
[2025-02-28] MEDS: 0.9% Normal Saline (1000mL) 1,000 ML 75 ML IV (11:57)
[2025-02-28 13:55] LABS: Anion Gap 12 (5-15); BUN 11 mg/dL (4-19); BUN/Creat Ratio 9.6 RATIO (10-20); Calcium,Total 7.5 mg/dL (7.6-11.0); Carbon Dioxide 20.7 mmol/L (21.0-32.0); Chloride 100 mmol/L (98-108); Estimated Creatinine Clearance 94.40 ml/min (50-250); Glucose 117 mg/dL (70-99); Potassium 4.5 mmol/L (3.3-5.1)
--- NOTE | 2025-02-28 14:10 | CHAPLAIN ---
Type of Pastoral Visit ___ Initial Visit ___ Follow-up Visit ___ On-call Visit ___ General Patient Visit ___ Spiritual Assessment ___ Family Conference ___ Bereavement ___ Rapid Response ___ Code Blue ___ Other (describe below) Pastoral Care Referral From ___ Patient ___ Family ___ Nurse ___ Physician ___ Mobile Game Engineer ___ Onsite Health Coach ___ Other (describe below) Sacrament/Intervention ___ Active listening ___ Anointing ___ Orthodoxy ___ Bereavement ___ Communion ___ Ann exploration ___ ___ Life review ___ Prayer ___ Reconciliation ___ Sacrament of Sick ___ Supportive presence ___ Wedding ___ Other (describe below) Pastoral Comments patient is sound asleep and snoring; pt does not awaken; calling card left
--- NOTE | 2025-02-28 16:36 | PCM.PN.HOSP ---
Reason for Visit Chief Complaint: Alcohol detox Objective Data Objective Data Vital Signs: Vital Signs Temp Pulse Resp BP Pulse Ox O2 Del Method 97.4 F L 98 16 147/97 H 96 Room Air 02/28/25 14:15 02/28/25 14:15 02/28/25 14:15 02/28/25 14:15 02/28/25 14:15 02/28/25 14:15 Oxygen Delivery Method Room Air Weight: 224 lb 7 oz Body Mass Index (BMI) 30.4 Intake & Output: Intake and Output for Last 24 Hours 02/26/25 02/27/25 02/28/25 23:59 23:59 23:59 Intake Total 1000 / 1000 750 / 750 Balance 1000 / 1000 750 / 750 Lab / Micro Data 02/28/25 06:41 02/28/25 12:23 Labs: Laboratory Results - last 24 hr 02/27/25 12:58: Serum Osmolality 307 H, Total Bilirubin 0.94, Direct Bilirubin 0.48 H, AST 170 H, ALT 160 H, Alkaline Phosphatase 293 H, Total Protein 6.8, Albumin 3.4 L, Globulin 3.4, Triglycerides 4368 H, Cholesterol 531 H, LDL Cholesterol, Calc -349, VLDL Cholesterol 874 H, HDL Cholesterol 7 L, Cholesterol/HDL Ratio 79.97 02/27/25 14:28: Urine Osmolality 477, Ur Random Sodium 34 02/28/25 06:41: WBC 7.0, RBC 4.50 L, Hgb 15.3, Hct 44.2, MCV 98.2 H, MCH 34.0 H, MCHC 34.6 D, RDW Std Deviation 51.3 H, RDW Coeff of Tracey 14.1, Plt Count 165, MPV 10.0, Sodium 133, Potassium 5.3 H, Chloride 101, Carbon Dioxide 13.7 L, Anion Gap 18 H, BUN 10, Creatinine 1.09, Estim Creat Clear Calc 97.87, Est GFR (MDRD) Non-Af 82, BUN/Creatinine Ratio 9.0 L, Glucose 117 H, Calcium 7.6, Total Bilirubin 0.91, Direct Bilirubin 0.52 H, AST 122 H, ALT 131 H, Alkaline Phosphatase 218 H, Total Creatine Kinase 314 H, Total Protein 5.9, Albumin 3.1 L, Globulin 2.8 02/28/25 12:23: Sodium 132 L, Potassium 4.5, Chloride 100, Carbon Dioxide 20.7 L, Anion Gap 12, BUN 11, Creatinine 1.13, Estim Creat Clear Calc 94.40, Est GFR (MDRD) Non-Af 78, BUN/Creatinine Ratio 9.6 L, Glucose 117 H, Calcium 7.5 L ABG Data ABG results: ABG 02/28/25 11:36 Specimen Type ALENA Sample Site Not entered O2 % 21.0 VBG pH 7.45 H VBG pO2 60 H VBG HCO3 27 H VBG Total CO2 28 VBG O2 Sat (Calc) 92 H VBG Base Excess 3 POC Mix VBG pCO2 Pt Tmp 39.6 L O2 Delivery Device Not entered Radiography Diagnostic Testing: Radiology Impression Abdomen Ultrasound 02/28/25 07:00 IMPRESSION: Fatty hepatomegaly. Distended gallbladder with sludge however no signs to suggest cholecystitis. Reading Location: [place] [address] Physical Exam Narrative Seen and examined. Patient was sleeping but he woke up. He is hyperactive. Drinks about 12 to 18 cans of 12 ounce beer every day. He started drinking in high school. He does not have abdominal pain but he states sometimes he gets abdominal pain diffuse but mostly on the upper abdomen. Physical exam General: Alert, Oriented x3, Cooperative. BMI 30.4 kg/m? HEENT: Atraumatic, PERRLA, EOMI, Normocephalic. Oral: No Gingival or Mucosal Lesions/ Ulcerations Neck: Supple, No JVD, Negative Carotid Bruits Chest wall/Lungs: Air entry diminished in bilateral lung bases. No crepitation/rhonchi Cardiovascular: Regular rate and rhythm, Normal S1,S2, No M/G/R Abdomen: Bowel Sounds Present, Soft, Non Tender, Non-Distended : No dysuria. No renal angle tenderness. No suprapubic tenderness. Extremities: No edema, Capillary Refill Less than 3 Seconds Skin: No rashes, No breakdown Musculoskeletal: No Tenderness to Palpation of Joints or Extremities Neurological: Cranial nerves II-XII grossly intact, DTR 2+/4. No acute focal neurological deficit. Psych/Mental Status: Flat affect Assessment & Plan Assessment/Plan (1) Alcohol abuse: (2) Alcohol withdrawal: (3) Desire for detoxification: PLAN: Plan Patient is a 54-year-old male who presented to [facility] ED on 02/27/2025 for alcohol detox. Patient admitted with acute alcohol withdrawal symptoms of tachycardia severe hypertension anxiety and tremors with improvement with IV Ativan and p.o. phenobarbital. 1. Acute alcohol withdrawal syndrome with history of chronic alcohol use dependence and tolerance: As per H&P he drinks 8-12 beers daily but he reported 12-18 beers daily to me. The patient is started on buprenorphine along with other adjunctive medications as needed for medical stabilization as per order set of opioid withdrawal syndrome.Patient also on trazodone, hydroxyzine, gabapentin as needed ordered. Advised quitting opioid use. distribution manager consult. 2. Elevated BP readings ? Initial BP reading in the 240s over 130s in the ED which improved to the 140s over 90s with treatment of alcohol withdrawal. Suspect patient may still of some degree of underlying hypertension. Will order IV hydralazine as needed for SBP greater than 170. Monitor BP and can consider starting p.o. antihypertensives as needed. 02/28: Patient is still blood pressure 147/97. Prevalently has chronic undiagnosed hypertension. Clonidine is ordered with holding parameters. 3. Hyponatremia ? Sodium 126 on admit, chloride 93. No reported history of hyponatremia. Sodium 134 at ED visit in November 2023. Suspect secondary to poor solute intake in setting of daily beer drinking as above. Urine sodium, urine osmolality and serum osmolality ordered for further evaluation. Will give 1 L of IV normal saline at this time. Follow-up a.m. sodium level. 02/28: Serum sodium 133, K5.3 with anion gap 18 bicarb 13.7. Acute on chronic alcoholic hepatitis: Patient previous transaminases are in the range of 60 to 80 units/L. Patient admitted with ALT 160, AST 170, improving. Alkaline phosphatase 293. CPK 314. Hyperlipidemia. Patient educated about toxic effect of alcohol on liver, stomach and pancreas and other body organs and system. Monitor liver chemistry. IV fluid normal saline ordered 4. Mild anion gap metabolic acidosis with mild hyperkalemia ? Sodium 126, chloride 93, bicarb 15 with anion gap 18 on admit. Glucose normal. Seems most likely secondary to some degree of starvation ketosis in setting of poor solute intake. Given 1 L of normal saline as above and encouraged p.o. intake. Potassium was elevated 5.3, serum sodium 133 with anion gap 18 which seems erroneous than expected. VBG was done which shows calculated bicarb 27/28. pH 7.45. As venous pH is more acidotic than arterial therefore pH is in normal range. Patient does not have high anion gap metabolic acidosis. Repeat BMP was done which shows anion gap 12, bicarb 20.7. K4.5. High anion gap metabolic acidosis resolved. 5. Suspected alcoholic gastritis ? Patient seen in the ED back in November 2023 for symptoms of upper abdominal discomfort especially with eating. Was thought to be due to alcohol gastritis at the time. He was prescribed Protonix and instructed to take Tums as needed. He has abdominal pain sometimes around epigastric/upper abdomen/gastric region. 02/28 continue p.o. Protonix daily at this time. 6. Tobacco dependence ? Smokes about 1 pack of cigarettes daily. Nicotine patch ordered per patient request. Discussed cessation on discharge. 7. Asthma ? Stable on room air at rest, not in acute exacerbation. Continue home albuterol inhaler as needed. DVT prophylaxis: Lovenox CODE STATUS: Full code, verified Laboratory Results 02/27/25 12:58: Serum Osmolality 307 H, Total Bilirubin 0.94, Direct Bilirubin 0.48 H, AST 170 H, ALT 160 H, Alkaline Phosphatase 293 H, Total Protein 6.8, Albumin 3.4 L, Globulin 3.4, Triglycerides 4368 H, Cholesterol 531 H, LDL Cholesterol, Calc -349, VLDL Cholesterol 874 H, HDL Cholesterol 7 L, Cholesterol/HDL Ratio 79.97 02/27/25 14:28: Urine Osmolality 477, Ur Random Sodium 34 02/27/25 20:10: Hepatitis A IgM Ab Pending, Hep Bs Antigen Pending, Hep B Core IgM Ab Pending, Hepatitis C Ab (EIA) Pending 02/28/25 06:41: WBC 7.0, RBC 4.50 L, Hgb 15.3, Hct 44.2, MCV 98.2 H, MCH 34.0 H, MCHC 34.6 D, RDW Std Deviation 51.3 H, RDW Coeff of Tracey 14.1, Plt Count 165, MPV 10.0, Sodium 133, Potassium 5.3 H, Chloride 101, Carbon Dioxide 13.7 L, Anion Gap 18 H, BUN 10, Creatinine 1.09, Estim Creat Clear Calc 97.87, Est GFR (MDRD) Non-Af 82, BUN/Creatinine Ratio 9.0 L, Glucose 117 H, Calcium 7.6, Total Bilirubin 0.91, Direct Bilirubin 0.52 H, AST 122 H, ALT 131 H, Alkaline Phosphatase 218 H, Total Creatine Kinase 314 H, Total Protein 5.9, Albumin 3.1 L, Globulin 2.8 02/28/25 11:36: Specimen Type ALENA, Sample Site Not entered, O2 % 21.0, VBG pH 7.45 H, VBG pO2 60 H, VBG HCO3 27 H, VBG Total CO2 28, VBG O2 Sat (Calc) 92 H, VBG Base Excess 3, POC Mix VBG pCO2 Pt Tmp 39.6 L, O2 Delivery Device Not entered 02/28/25 12:23: Sodium 132 L, Potassium 4.5, Chloride 100, Carbon Dioxide 20.7 L, Anion Gap 12, BUN 11, Creatinine 1.13, Estim Creat Clear Calc 94.40, Est GFR (MDRD) Non-Af 78, BUN/Creatinine Ratio 9.6 L, Glucose 117 H, Calcium 7.5 L Charges/Coding Visit Charges Inpatient E&M: 32658 Subs Hosp L2
[2025-02-28] MEDS: hydrOXYzine PAM 25 MG Capsule PO (22:04)
[2025-03-01 02:45] VITALS: BP 132/79; PULSE 83; RESP 18; TEMP 36.7; O2SAT 96
[2025-03-01 06:08] LABS: HEPATITIS B SURFACE AG Negative (Negative); Hep C Antibodies Non Reactive (Non Reactive)
[2025-03-01 06:15] VITALS: BP 142/83; PULSE 85; RESP 18; TEMP 37.1; O2SAT 96
[2025-03-01 07:34] VITALS: O2SAT 95
--- NOTE | 2025-03-01 08:29 | PCM.PN.HOSP ---
Reason for Visit Chief Complaint: Alcohol detox Subjective Subjective Feeling little bit tired but overall tolerating medication well, no chest pain or shortness of breath, denies any abdominal pain, no acute bowel or bladder complaints Objective Data Objective Data Vital Signs: Vital Signs Temp Pulse Resp BP Pulse Ox O2 Del Method 98.7 F 85 18 142/83 H 95 Room Air 03/01/25 06:15 03/01/25 06:15 03/01/25 06:15 03/01/25 06:15 03/01/25 07:34 03/01/25 07:34 Oxygen Delivery Method Room Air Weight: 101.803 kg Body Mass Index (BMI) 30.4 Intake & Output: Intake and Output for Last 24 Hours 02/27/25 02/28/25 03/01/25 23:59 23:59 23:59 Intake Total 1000 / 1000 1550 / 1550 910 / 910 Balance 1000 / 1000 1550 / 1550 910 / 910 Lab / Micro Data 02/28/25 06:41 03/01/25 07:00 Labs: Laboratory Results - last 24 hr 02/27/25 20:10: Hepatitis A IgM Ab Negative, Hep Bs Antigen Negative, Hep B Core IgM Ab Negative, Hepatitis C Ab (EIA) Non Reactive, Hep C Ab Comment Comment 02/28/25 12:23: Sodium 132 L, Potassium 4.5, Chloride 100, Carbon Dioxide 20.7 L, Anion Gap 12, BUN 11, Creatinine 1.13, Estim Creat Clear Calc 94.40, Est GFR (MDRD) Non-Af 78, BUN/Creatinine Ratio 9.6 L, Glucose 117 H, Calcium 7.5 L ABG Data ABG results: ABG 02/28/25 11:36 Specimen Type ALENA Sample Site Not entered O2 % 21.0 VBG pH 7.45 H VBG pO2 60 H VBG HCO3 27 H VBG Total CO2 28 VBG O2 Sat (Calc) 92 H VBG Base Excess 3 POC Mix VBG pCO2 Pt Tmp 39.6 L O2 Delivery Device Not entered Radiography Diagnostic Testing: Radiology Impression Abdomen Ultrasound 02/28/25 07:00 IMPRESSION: Fatty hepatomegaly. Distended gallbladder with sludge however no signs to suggest cholecystitis. Reading Location: [id number] Physical Exam Narrative General: Alert, oriented, no apparent distress HEENT: Atraumatic, normocephalic Eyes: extraocular movements grossly intact Neck: Supple Respiratory: normal respiratory effort Cardiovascular: no edema appreciated GI: nondistended Extremities: Moving all extremities Neuro: No overt focal neurological deficits Psych: Cooperative Assessment & Plan Assessment/Plan (1) Alcohol withdrawal: (2) Hypertriglyceridemia: (3) HTN (hypertension): (4) Tobacco abuse: (5) Asthma: (6) Elevated LFTs: PLAN: Plan 54 y/o M with a history of tobacco use and alcohol abuse presented to [facility] 02/27 requesting alcohol detox. Drinks 8-12 beers daily with last drink the night prior to admission and alcohol level negative in the ED. Was severely hypertensive in the ED with systolics in the 240s and had sinus tachycardia to the 100s. This improved significantly with p.o. phenobarb and IV Ativan in the ED and hospitalist contacted for admission. #Alcohol use disorder - We will begin CIWA every 4 for 24 hours, then every 6 for 24 hours, then every 12 until discharge -Will begin phenobarbital taper -Gabapentin 300 mg every 8 as needed -Will start Bentyl and hydroxyzine as needed as well as loperamide as needed -Trazodone 100 mg p.o. nightly as needed sleep -Begin thiamine and folic acid supplementation -Zofran as needed for nausea -Case management consult to assist with discharge planning -EtOH negative # Hypertensive urgency secondary to acute alcohol withdrawal - Systolic blood pressures initially in the ED 240s which improved significantly with treatment of his withdrawal - Patient started on clonidine 0.2 mg twice daily # Alcoholic gastritis - Seen in the ED in 2023 due to upper abdominal discomfort especially with eating it was thought to be due to alcoholic gastritis, he is prescribed Protonix and instructed to take Tums as needed, did have some improvement in his symptoms however is not taking these medications consistently anymore - He is having this pain again so he was reinitiated on Protonix though at time of my evaluation not presently complaining of this # Hypertriglyceridemia/hyperlipidemia -Patient's triglycerides 4300 on presentation with total cholesterol of 531 and HDL of 7 -Patient started on atorvastatin 80 mg # Elevated LFTs -T. bili 0.94, direct bili 0.48, AST 170, ALT 160, alk phos 293 on presentation with repeat downtrending -Suspect secondary to patient's heavy alcohol use -Abdominal ultrasound with distended gallbladder and sludge but no signs to suggest cholecystitis, also showed fatty hepatomegaly -Hepatitis panel negative -On atorvastatin due to patient's hyperlipidemia, continue to trend LFTs #Tobacco use -Advise cessation -Nicotine replacement available if desired # History of asthma - As needed albuterol #DVT ppx: Lovenox subcu Ninfa Mazariegos MD Charges/Coding Visit Charges Inpatient E&M: 86098 Subs Hosp L2
[2025-03-01 09:08] VITALS: BP 151/92; PULSE 88; RESP 15; TEMP 36.4; O2SAT 97
[2025-03-01] MEDS: Oxymetazoline 0.05% 1 SPRAY SPRAY.BTL NASAL (09:10)
[2025-03-01] MEDS: Thiamine Hydrochloride 100 MG Tablet PO (09:11)
[2025-03-01] MEDS: Nicotine (PBKC) 21 MG Patch TD (09:11)
[2025-03-01] MEDS: hydrOXYzine PAM 25 MG Capsule PO ×2 (09:19→14:32)
[2025-03-01 09:50] LABS: AST(SGOT) 112 U/L (<=37); Alanine Aminotransfer ALT/SGPT 109 U/L (<=46); Albumin, Serum 3.0 g/dL (3.5-5.0); Alkaline Phosphatase 206 U/L (40-129); Anion Gap 11 (5-15); BUN 8 mg/dL (4-19); BUN/Creat Ratio 6.9 RATIO (10-20); Bilirubin, Direct 0.19 mg/dL (0.00-0.30); Calcium,Total 7.2 mg/dL (7.6-11.0); Carbon Dioxide 22.4 mmol/L (21.0-32.0); Chloride 103 mmol/L (98-108); Estimated Creatinine Clearance 96.98 ml/min (50-250); Globulin 2.8 g/dL (2.2-4.2); Glucose 102 mg/dL (70-99); Potassium 4.2 mmol/L (3.3-5.1)
[2025-03-01 14:28] VITALS: BP 134/86; PULSE 84; RESP 17; TEMP 36.6; O2SAT 94
--- NOTE | 2025-03-01 14:54 | CASEMGMT ---
Social Work SW did provide to pt resources as pt is listed as self pay. SW gave pt information on [facility], [facility] card, and a list of PCPs in the area. Pt then went on to talk about needing help w/his alcohol use and how difficult it was to do when working, as his insurance did not cover much. Pt did apply for Medicaid yesterday, and states frustration that it took pt not working to actually qualify for Medicaid and get the help he needs. Support given. SW remains available for any additional social service needs. JUAN Valero
--- NOTE | 2025-03-01 17:14 | ADDICTION ---
This automotive service writer met with PT to conduct ASAM, MSE, AUDIT, DUDIT assessments and to plan for d/c. PT A+Ox4 and participated actively. All assessments completed. PT plans to f/u with [facility] for outpatient treatment services. Patient reports drinking 8-12 beers daily.
--- NOTE | 2025-03-01 20:03 | NURSING ---
Patient left AMA. He was angry with the person that visited him from [facility] today. He felt like the person was gruff and not very caring when asking about what plans he has after discharge. This RN offered to get him some medication for anxiety. He said he really just needed a cigarette. This RN offered to get him a nicotine patch and/or gum if he didn't already those. He said he had a patch. He just needed a cigarette. This RN tried therapeutic communication to get him to calm down. Patient said he just had to go. He had to let his dogs out. I have a kid at home that probably isn't taking care of them. He then said, You guys have all been great, but I need to go. Patient signed AMA form. This RN told patient that if he felt like giving this another try to please come back. RN mentioned that he doesn't have to see [facility] here.
--- NOTE | 2025-03-01 20:04 | PCM.HOSP.N ---
Hospitalist Note RN reporting patient left AMA, noting need to let his dogs out and wanted cigarettes, left at 1954.
== END 2025-03-01 20:00 | disposition left against medical advice (07) | DRG 894 ==
LOC: ED 13:16 → MS3 15:43
PROVIDERS: Internal Medicine; Admitting Provider Hospitalist; Emergency Provider Emergency Medicine; Visit Provider Internal Medicine
DX: F10.239 Alcohol dependence with withdrawal, unspecified (principal); E87.1 Hypo-osmolality and hyponatremia; E87.20 Acidosis, unspecified; K70.10 Alcoholic hepatitis without ascites; I16.0 Hypertensive urgency; J45.909 Unspecified asthma, uncomplicated; E66.811 Obesity, class 1; J44.9 Chronic obstructive pulmonary disease, unspecified; K29.20 Alcoholic gastritis without bleeding; I10 Essential (primary) hypertension; F17.210 Nicotine dependence, cigarettes, uncomplicated; E78.5 Hyperlipidemia, unspecified; E87.5 Hyperkalemia; E78.1 Pure hyperglyceridemia; Y90.9 Presence of alcohol in blood, level not specified; Z68.30 Body mass index [BMI] 30.0-30.9, adult; Z53.29 Procedure and treatment not carried out because of patient's decision for other reasons
CPT/HCPCS: 36415; 76705; 80048; 80061; 80074; 80076; 80307; 82077; 82550; 82803; 83930; 83935; 84300; 85025; 85027; 97802; 99284; A4216

== ENCOUNTER 2025-03-16 09:37 | Emergency (ER) | payer MEDICAID, SELFPAY ==
[2025-03-16 09:37] VITALS: BP 158/91; PULSE 89; RESP 18; TEMP 36.8; O2SAT 99; BMI 30.4
--- NOTE | 2025-03-16 10:03 | EDS_ITS ---
HPI History of Present Illness Chief Complaint: Cough Detail of Chief Complaint: Cough and left foot pain Informant: patient Narrative Narrative: Patient presents to the emergency department with complaint of a cough that started a week ago. Patient also complains of left foot pain. Foot pain started 2 days ago. He denies any injury. Patient denies any fever. Cough mostly nonproductive. He is a smoker. Patient also an alcoholic and states that 8 days ago he was admitted to a detox center but then got out a week ago and has been drinking since. No history of gout. PFSH PFS Home Medications ?Medication ?Instructions ?Recorded ?Last Taken ?Type albuterol sulfate 90 mcg/actuation 2 puff inhalation Q 4H PRN PRN 11/06/23 Unknown History aerosol inhaler wheezing albuterol sulfate 90 mcg/actuation 1 - 2 puff inhalati on Q4H PRN PRN 11/06/23 Unknown Rx aerosol inhaler (Ventolin HFA) Wheezing #1 inh benzonatate 200 mg capsule 200 mg PO TID PRN cough #20 caps 03/16/25 Unknown Rx Allergy/AdvReac Type Severity Reaction Status Date / Time No Known Allergies Allergy Verified 03/16/25 09:39 Social History Smoking Status: Heavy Smoker (>10/day) ROS ROS ED Review of Systems ROS Unobtainable: other Constitutional Constitutional ED: Reports lethargy; Denies chills, fever(s), sweats or weight loss Eyes Eyes: Denies blurry vision, change in vision or diplopia ENT ENT ED: Denies rhinorrhea or sore throat Cardiovascular Cardiovascular: Denies chest pain, orthopnea or racing heartbeat Respiratory/Chest Respiratory/Chest: Reports cough; Denies dyspnea, dyspnea on exertion, orthopnea or sputum Gastrointestinal Gastrointestinal: Denies abdominal pain, diarrhea, nausea or vomiting Genitourinary Genitourinary ED: Denies dysuria, hematuria or urinary frequency Musculoskeletal Musculoskeletal: Reports other Details: Left foot pain ; Denies arthralgias, back pain, myalgias or neck pain Integumentary Denies abscess, Abrasions or rash Neurologic Neurologic: Denies headache(s) or weakness Psychiatric Psychiatric: Denies anxiety, depression or suicidal thoughts Endocrine Endocrinology: Denies polydipsia, polyphagia or polyuria Hematologic/Lymphatic Hematologic/Lymphatic: Denies easy bleeding, easy bruising or lymphadenopathy Allergic/Immunologic Allergic/Immunologic ED: Denies mouth swelling, tongue swelling or urticaria EXAM Physical Exam Const Vital Signs: 03/16/25 09:37 03/16/25 09:59 Temperature 98.3 F Temperature Source Oral Pulse Rate 89 Respiratory Rate 18 Respiratory Effort Normal Non-Labored Respiratory Depth Normal Respiratory Pattern Normal Blood Pressure 158/91 H Blood Pressure Mean 113 Pulse Ox 99 Oxygen Delivery Method Room Air Positive well nourished and well developed General Appearance ED: well developed and NAD HEENT Reports TM's clear and moist mucous membranes normocephalic and atraumatic; Negative for trauma or tenderness Tympanic Membrane ED: Yes TM's clear Eyes PERRL and EOMs intact bilaterally General Eye ED: Negative for pale conjunctiva or scleral icterus Neck no lymphadenopathy, supple and no JVD General: Negative for tenderness Chest Wall inspection of chest normal and palpation of chest normal Chest: Negative for tenderness Resp normal respiratory effort and clear to auscultation bilaterally Effort and Inspection: Negative for respiratory distress or pain with movement Auscultation: Negative for rhonchi, wheezes or diminished lung sounds Cardio regular rate, regular rhythm, S1 normal heart sound, S2 normal heart sound and no murmurs Peripheral Pulses: pulses 2+ throughout GI normal to inspection, nondistended, normoactive bowel sounds, soft to palpation, non-tender, non-distended and no masses Back/Spine no CVA tenderness and no thoracic nor lumbar tenderness Extremity Extremity Narrative: Left foot-patient has tenderness palpation over the dorsal lateral aspect of the foot over the fifth metatarsal. No significant erythema or warmth noted. No cellulitic changes. Patient has normal dorsal pedal and posterior tibial pulses with normal cap refill. No ecchymosis or bruising noted. General Extremety ED: Negative for edema General Extremity: Negative for edema Neuro oriented x3, CN's II-XII intact bilaterally, no sensory deficits noted and gait normal Sensorium / Orientation: awake, alert, oriented to person, oriented to place and oriented to time Motor Exam: strength 5/5 throughout and strength abnormal Psych mental status grossly normal Skin no rashes or lesions noted and no wounds MDM MDM MDM Narrative Medical decision making narrative: Patient with cough for over a week. As I was having exit interview with patient he tells me that he started taking his pack when this first started and finished taking the Zithromax. Patient I believe likely has a viral URI. I do not feel further antibiotics are indicated. I will start him on Tessalon Perles. Will dispense an albuterol MDI. Regarding his foot etiology of his pain is unclear. He has normal pulses without signs of infection. Suspect possibly a sprain. No evidence of gout currently. Advised to use ibuprofen for discomfort. He did not want crutches or an Ifeanyi wrap. Lab Data Attestation: I reviewed the patient's lab results. Radiography Diagnostic Testing: Clinical Impression(s) from Imaging Studies Chest X-Ray 03/16/25 10:18 IMPRESSION: No acute process in the chest Reading Location: [id number] Foot X-Ray 03/16/25 10:18 IMPRESSION: No acute osseous abnormalities. Reading Location: [facility] 2 view chest x-ray obtained interpreted by myself as no evidence of infiltrate or pneumothorax or acute disease process. Radiology in agreement. Three-view x-rays of the left foot obtained interpreted by myself as no evidence of fracture dislocation or other acute process. Radiology in agreement. Discharge Plan Triage Chief Complaint: Cough Other Complaint: Lower Extremity Injury ED Provider: Robi Solis Dx/Rx/DC Orders Clinical Impression: Viral URI, Acute pain of left foot Instructions: ED Pain, Acute, Uncertain Cause, ED URI, Viral W/ Wheezing (Adult) Prescriptions: New benzonatate 200 mg capsule 200 mg PO TID PRN (Reason: cough) Qty: 20 0RF No Action albuterol sulfate 90 mcg/actuation HFA aerosol inhaler 2 puff inhalation Q4H PRN PRN (Reason: wheezing) albuterol sulfate [Ventolin HFA] 90 mcg/actuation HFA aerosol inhaler 1 - 2 puff inhalation Q4H PRN PRN (Reason: Wheezing) Qty: 1 0RF Primary Care Provider: Sofie Melendrez NP Referrals: Jeremy Ocampo MD [Med Staff - Wildlife Forensic Geneticist, Family Practice] - 3-5 Days Sofie Melendrez NP, VISUAL INSPECTOR-C [Primary Care Provider, Family Practice] Print Language: Kyrgyz Disposition Disposition: Home, Self Care
--- OUTSIDE RECORDS SUMMARY | 2025-03-16 10:14 | XMS RPT_ITS | CCD ---
Author Organization [place] [facility] Team Providers Care Pv Design Engineer Name Role Phone PROVIDER, UNKNOWN Referring Unavailable No, PCP Primary Care Unavailable Denise Vaughan . Attending Unavailable Required, No Pcp Unavailable Unavailable Milly Chavez Unavailable Parvin BROADBAND ENGINEER.Sofie LOZANO Primary Care Provider SOFIE DONATO Attending Unavailable SOFIE DONATO Primary Care Unavailable Dr. Gerald Lenz DO Emergency Department Physi zachary Care Physician, No Primary Primary Care Physicia n Unavailable Dr. Howie Payne DO Admitting Physician Dr. Howie Payne DO Attending Physician Care Physician, No Primary Primary Care Unava ilNinfa Baird Attending Unavailable Howie Payne Consulting Unavailable Howie Payne Admitting Unavailable Luis Low Consulting Unavailable Ninfa Mazariegos Consulting Unavailable Care Physician, No Primary Primary Care Unava ilNinfa Baird Attending Unavailable Howie Payne Admitting Unavailable Howie Payne Consulting Unavailable Luis Low Consulting Unavailable Provider, Ed Physician Attending Unavailab Sofie Wheeler NP Primary Care Unavailable Luis oLw Attending Unavailable Howie Payne Attending Unavailable Medications Current Medications Medication Drug Class(es) Dates Sig (Normalized) Sig (Original) acetaminophen 325 mg / HYDROcodone bitartrate 5 mg oral tablet (1 source) Opioid Agonist Start: 02-22-2021 End: 02-24-2021 take 1 tablet by mouth every six hours [place] 5 mg-325 mg oral tablet ; 1 tab(s) orally every 6 hours Quantity: 12 Refills: 0 Ordered: 22-Feb-2021 Milly Chavez Start: 22-Feb-2021 End: 24-Feb-2021 Generic Substitution Allowed Comments: Caution federal law [...] than prescribed may cause serious breathing problems. [id number] 200 actuat albuterol 0.09 mg/actuat metered dose inhaler (8 sources) beta2-Adrenergic Agonist Start: 11-06-2023 Albuterol Sulfate 90 mcg/actuation HFA aerosol inhaler Active 2 NMA INHALATION EVERY 4 HOURS NEEDED as needed for wheezing November 06, 2023 12:00am Complies with drug therapy Start: 08-05-2021 End: 09-22-2022 take 2 puff(s) [...] Comments: Source=Surescripts, Medication=ALBUTEROL HFA 90 MCG INHALER, OriginatingSource=[employer] OriginatingProvider=MAURICE MARTINEZ, Duration=25, Refills=1, Date Last Modified/Filled=04-Feb-2021 Comment on above: Source=Surescripts, Medication=ALBUTEROL HFA 90 MCG INHALER, OriginatingSource=[employer], OriginatingProvider=MAURICE MARTINEZ, Duration=25, Refills=1, Date Last Modified/Filled=04-Feb-2021 Inhale 2 Puffs as in structed every 4 hours as needed for wheezing/shortness of breath. cephalexin 500 mg oral capsule (2 sources) Cephalosporin Antibacterial Start: 2020 End: 2020 take 1 capsule by mouth every six [...] 1 tablet by mouth every six hours acetaminophen-oxyCO DONE 325 mg-5 mg oral tablet ; 1 [...] than prescribed may cause serious breathing problems. ascorbic acid 1000 mg extended release oral tablet (1 source) Vitamin C End: 09-22-2022 Ascorbic Acid (VITAMIN C) 1,000 mg TbER Take by mouth. 0 09/22/2022 Discontinued Comment on above: Take by mouth. azelastine hydrochloride 0.137 mg/actuat metered dose nasal spray (1 source) Histamine-1 Receptor Antagonist Start: 11-03-2022 take 2 spray(s) nasal route once daily at bedtime azelastine 0.1% nasal spray Use 2 Sprays in each nostril daily at bedtime. 30 mL 5 11/03/2022 Active Comment on above: Use 2 Sprays in each nostril daily at bedtime. azithromycin 250 mg oral tablet (1 source) Macrolide Antimicrobial Start: 08-05-2021 End: 09-22-2022 azithromycin (ZITHROMAX) 250 mg tablet Indications: Upper [...] oral tablet (2 sources) alpha-Adrenergic Agonist, Uncompetitive T-efojgu-V-aspartat e Receptor Antagonist, Sigma-1 Agonist Start: 10-13-2022 take 1 tablet by mouth every six hours as needed CAPMIST DM 60-15-400 mg tab TAKE 1 TABLET BY MOUTH EVERY 6 HOURS NEEDED FOR 5 DAYS 0 10/13/2022 Active Comment on above: TAKE 1 TABLET BY MISHEL EVERY 6 HOURS NEEDED FOR 5 DAYS fluticasone propionate 0.05 mg/actuat metered dose nasal spray (1 source) Corticosteroid Start: 11-03-2022 take 2 spray(s) nasal route once daily fluticasone (FLONASE) 50 mcg/actuation nasal spray Use 2 Sprays in each nostril once daily. 1 Each 5 11/03/2022 Active Comment on above: Use 2 Sprays in each nostril once daily. gabapentin 300 mg oral capsule (1 source) Anti-epileptic Agent Start: 02-25-2014 End: 03-07-2014 take 1 capsule by mouth three times [...] 25 mg oral capsule (1 source) Antihistamine Start: 08-05-2021 End: 09-22-2022 take 1 capsule by mouth every twenty-four hours as needed for anxiety and anxiety hydrOXYzine pamoate (VISTARIL) 25 mg capsule Indications: Anxiety Take 1 capsule by mouth at bedtime as needed for anxiety. 30 capsule 0 08/05/2021 09/22/2022 Discontinued Comment on above: Take 1 capsule by mo [facility] at bedtime as needed for anxiety. ibuprofen 800 mg oral tablet (1 source) Nonsteroidal Anti-inflammatory Drug Start: 10-14-2013 End: 10-24-2013 take 1 tablet by mouth three times daily ibuprofen 800 mg oral tablet ; 1 tab(s) orally 3 times a day Quantity: 30 Refills: 0 Ordered: 14-Oct-2013 Jeremy Espino Start: 14-Oct-2013 End: 24-Oct-2013 Status: Completed Generic Substitution Allowed ketorolac tromethamine 10 mg oral tablet (1 source) Nonsteroidal Anti-inflammatory Drug, Cyclooxygenase Inhibitor Start: 01-27-2014 take 1 tablet by mouth [...] oral tablet (3 sources) Leukotriene Receptor Antagonist Start: 09-22-2022 End: 10-27-2022 take 1 tablet by mouth once daily at bedtime montelukast (SINGULAIR) 10 mg tablet Indications: Chronic rhinosinusitis Take 1 tablet by mouth daily at bedtime. 30 tablet 2 09/22/2022 10/27/2022 Discontinued (Discontinued by Patient) Comment on above: Take 1 tablet by mishel th daily at bedtime. multivit,thx,calcium, iron,mins (MULTIVITAMIN AND MINERAL ORAL) (1 source) End: 09-22-2022 multivit,thx,calciu m,iron,mins (MULTIVITAMIN AND MINERAL ORAL) Take by mouth. 0 09/22/2022 Discontinued Comment on above: Take by mouth. Oxymetazoline (1 source) oxymetazoline HC l (AFRIN NASAL) Use in the nose. 0 Active Comment on above: Use in the nose. pantoprazole 40 mg delayed release oral tablet (1 source) Proton Pump Inhibitor Start: 11-06-2023 End: 02-27-2025 take 1 tablet by mouth once daily Pantoprazole (Protonix) 40 mg tablet,delayed release (DR/EC) Discontinued 40 mg PO DAILY 20 0 November 06, 2023 12:00am February 27, 2025 1:10pm pseudoephedrine hydrochloride 30 mg oral tablet (1 [...] source) Dihydrofolate Reductase Inhibitor Antibacterial, Sulfonamide Antimicrobial Start: 01-27-2014 End: 02-06-2014 take 1 tablet by mouth twice daily [...] Problem Classification Problem Date Documented Date Episodic/Chronic Alcohol-related disorders (16 sources) Alcohol abuse; Translations: [Alcohol abuse, uncomplicated] Onset: 09-11-2010 05-06-2019 Chronic Anxiety disorders (1 source) Anxiety disorder, unspecified; Translations: [Anxiety] Onset: 10-04-2024 Chronic Asthma (1 source) Unspecified asthma, uncomplicated; Translations: [Unspecified asthma, uncomplicated] Onset: 03-01-2025 Chronic Chronic obstructive pulmonary disease and bronchiectasis (3 sources) Chronic obstructive pulmonary disease, unspecified; Translations: [Chronic obstructive lung disease] Onset: 06-27-2018 11-14-2023 Chronic Disorders of lipid metabolism (1 source) Pure hyperglyceridemia; Translations: [Pure hyperglyceridemia] Onset: 03-01-2025 Chronic Essential hypertension (1 source) Essential (primary) hypertension; Translations: [Essential (primary) hypertension] Onset: 03-01-2025 Chronic External cause codes: Unspecified (2 sources) Nosocomial condition; Translations: [Nosocomial condition] Onset: 06-27-2018 Gastritis and duodenitis (1 source) Gastritis; Translations: [Gastritis, unspecified, without bleeding] 11-14-2023 Episodic Heart valve disorders (1 source) Heart murmur; [...] taste; Translations: [Parageusia] Onset: 09-22-2022 Episodic Other screening for suspected conditions (not mental disorders or infectious disease) (1 source) Other specified abnormal findings of blood chemistry; Translations: [Other specified abnormal findings of blood chemistry] Onset: 03-01-2025 Episodic Other upper respiratory disease (1 source) Chronic rhinitis; Translations: [Chronic rhinitis] Chronic Other upper respiratory disease (1 source) Chronic rhinitis; Translations: [Chronic rhinitis] Chronic Other upper respiratory disease (4 sources) Nasal congestion; Translations: [Nasal congestion] Onset: 09-22-2022 09-22-2022 Episodic Pneumonia (except that caused by tuberculosis or sexually transmitted disease) (2 sources) Pneumonia, unspecified organism; Translations: [Pneumonia, unspecified organism] Onset: 06-27-2018 Episodic Residual codes; unclassified (1 source) Tobacco use; Translations: [Tobacco use] Onset: 03-01-2025 Episodic Screening and history of mental health and substance abuse codes (1 source) Patient encounter status; Translations: [Encounter for screening for depression] Episodic Substance-related disorders (8 sources) Nicotine dependence, unspecified, uncomplicated; Translations: [Cigarette smoker ] Onset: 07-12-2015 Chronic Unclassified (1 source) Avulsion of finger tip 02-22-2021 Unclassified (1 source) Open fracture of tuft of distal phalanx of finger with routine healing 02-22-2021 Unclassified (2 sources) Readiness finding 02-27-2025 Unclassified (1 source) Alcohol abuse with withdrawal, uncomplicated; Translations: [Alcohol abuse with withdrawal, uncomplicated] Onset: 03-06-2025 Unclassified (1 source) Alcohol use, unspecified with withdrawal, unspecified; Translations: [Alcohol use, unspecified with withdrawal, unspecified] Onset: 03-05-2025 Past or Other Problems Problem Classification Problem Date Documented Da te Episodic/Chronic Abdominal pain (4 sources) Abdominal pain; Translations: [Unspecified abdominal pain] Onset: 07-12-2015 05-24-2021 Episodic Administrative/social admission (6 sources) Tobacco abuse counseling; [...] Test Name Value Interpretation Reference Range Facility Lipid Profileon 03-14-2025 CLDL TNP Normal [facility] Comment on above: Order Comment: SPECI MEN IS MARKEDLY LIPEMIC. RESULTS MAY BE AFFECTED. Result Comment: Bord sxnuhs=285-817 mg/dL Higher Zspy=288 mg/dL or greater Friedwald Equation for LDL-C AMENDED REPORT 03/14/25 1204 CLDL previously reported as: -349 mg/dL Pidgpwcbwp=851-126 mg/dL Higher Jndm=156 mg/dL or greater Friedwald Equation for LDL-C Performed By: #### L 500.3400 #### [facility] [address] [place], [address] Lipid Profileon 03-02-2025 CHOL Normal <=200 [facility] Comment on above: Result Comment: Canc elled via OM: Order cancelled - Patient discharged Performed By: #### L 500.3400 #### [facility] [address] [place], [address] CHOL:HDL Normal [facility] Comment on above: Result Comment: Canc elled via OM: Order cancelled - Patient discharged Performed By: #### L 500.3400 #### [facility] [address] [place], [address] CLDL Normal [facility] Comment on above: Result Comment: Canc elled via OM: Order cancelled - Patient discharged Performed By: #### L 500.3400 #### [facility] [address] [place], [address] HDL Normal [facility] Comment on above: Result Comment: Canc elled via OM: Order cancelled - Patient discharged Performed By: #### L 500.3400 #### [facility] [address] [place], [address] TRIG Normal [facility] Comment on above: Result Comment: Canc elled via OM: Order cancelled - Patient discharged Performed By: #### L 500.3400 #### [facility] [address] [place], [address] VLDL Normal 5-40 [facility] Comment on above: Result Comment: Canc elled via OM: Order cancelled - Patient discharged Performed By: #### L 500.3400 #### [facility] [address] [place], [address] Basic Metabolic Profile (BMP )on 03-01-2025 BUN/CRE 6.9 RATIO Low 10-20 [facility] Comment on above: Performed By: #### L 500.3400, L500.2500 #### [facility] [address] [place], [address] Calcium [Mass/Vol] 7.2 mg/dL Low 7.6-11.0 [facility] Comment on above: Performed By: #### L 500.3400, L500.2500 #### [facility] [address] [place], [address] Chloride [Moles/Vol] 103 mmol/L Normal 98-108 [facility] Comment on above: Performed By: #### L 500.3400, L500.2500 #### [facility] [address] [place], [address] CO2 [Moles/Vol] 22.4 mmol/L Normal 21.0-32.0 [facility] Comment on above: Performed By: #### L 500.3400, L500.2500 #### [facility] [address] [place], [address] Creatinine [Mass/Vol] 1.10 mg/dL Normal 0.70-1.20 [facility] Comment on above: Performed By: #### L 500.3400, L500.2500 #### [facility] [address] [place], [address] ECRCL 96.98 ml/min Normal 50-250 [facility] Comment on above: Performed By: #### L 500.3400, L500.2500 #### [facility] [address] [place], [address] GAP 11 Normal 5-15 [facility] Comment on above: Performed By: #### L 500.3400, L500.2500 #### [facility] [address] [place], [address] GFR/1.73 sq M.predicted among non-blacks MDRD (S/P/Bld) [Vol rate/Area] 81 mL/min/{1.73_m2} Normal >60 [facility] Comment on above: Result Comment: mL/m in/1.73m2 CKD-EPI Creatinine Equation (2020) Performed By: #### L 500.3400, L500.2500 #### [facility] [address] [place], [address] Glucose [Mass/Vol] 102 mg/dL High 70-99 [facility] Comment on above: Performed By: #### L 500.3400, L500.2500 #### [facility] [address] [place], [address] Potassium [Moles/Vol] 4.2 mmol/L Normal 3.3-5.1 [facility] Comment on above: Result Comment: Hemo lysis present, Results??could be affected. ?? Performed By: #### L 500.3400, L500.2500 #### [facility] [address] [place], [address] Sodium [Moles/Vol] 136 mmol/L Normal 133-145 [facility] Comment on above: Performed By: #### L 500.3400, L500.2500 #### [facility] [address] [place], [address] Urea nitrogen [Mass/Vol] 8 mg/dL Normal 4-19 [facility] Comment on above: Performed By: #### L 500.3400, L500.2500 #### [facility] [address] [place], [address] Hepatitis Panel Acuteon 10-0 4-2025 COMMENT Comment Normal . [facility] Comment on above: Result Comment: Not infected with HCV unless early or acute infection is suspected (which may be delayed in an immunocompromised individual), or other evidence exists to indicate HCV infection. Performed at: [facility] [address] [id number] Associate Of Science In Nursing: Cam Perry PhD, Phone: [phone] Performed By: #### L 3000.0375 #### [facility] [address] [place], [address] HEP B CORE,IgM Negative Normal Negative [facility] Comment on above: Performed By: #### L 3000.0375 #### [facility] [address] [place], [address] HEP B SURF AG Negative Normal Negative [facility] Comment on above: Performed By: #### L 3000.0375 #### [facility] [address] [place], [address] HEP C VIRUS AB Non-Reactive Normal Non Reactive [facility] Comment on above: Performed By: #### L 3000.0375 #### [facility] [address] [place], [address] HEPATITIS A-IgM Negative Normal Negative [facility] Comment on above: Result Comment: A ne gative anti-HAV IgM result suggests no recent or current HAV infection. Performed By: #### L 3000.0375 #### [facility] [address] [place], [address] Liver Profileon 03-01-2025 Albumin [Mass/Vol] 3.0 g/dL Low 3.5-5.0 [facility] Comment on above: Performed By: #### L 500.3400, L500.2500 #### [facility] [address] [facility] [address] ALK PHOS 206 U/L High 40-129 [facility] Comment on above: Performed By: #### L 500.3400, L500.2500 #### [facility] [address] [place], [address] ALT [Catalytic activity/Vol] 109 U/L High <=46 [facility] Comment on above: Performed By: #### L 500.3400, L500.2500 #### [facility] [address] [place], [address] AST [Catalytic activity/Vol] 112 U/L High <=37 [facility] Comment on above: Result Comment: Hemo lysis present, Results??could be affected. ?? Performed By: #### L 500.3400, L500.2500 #### [facility] [address] [place], [address] Bilirubin [Mass/Vol] 0.56 mg/dL Normal 0.00-1.30 [facility] Comment on above: Performed By: #### L 500.3400, L500.2500 #### [facility] [address] [place], [address] Bilirubin.direct [Mass/Vol] 0.19 mg/dL Normal 0.00-0.30 [facility] Comment on above: Result Comment: Hemo lysis present, Results??could be affected. ?? Performed By: #### L 500.3400, L500.2500 #### [facility] [address] [place], [address] Globulin (S) [Mass/Vol] 2.8 g/dL Normal 2.2-4.2 [facility] Comment on above: Performed By: #### L 500.3400, L500.2500 #### [facility] [address] [place], [address] T PROT 5.7 g/dL Low 5.9-8.4 [facility] Comment on above: Performed By: #### L 500.3400, L500.2500 #### [facility] [address] [place], [address] Abdomen Limitedon 02-28-2025 Abdomen Limited [facility] [address] [place], [place] [id number] Abdomen Limited MR#: [id number] Acct: [id number] Name: YOGI SAWYER Rep #: [id number] : 1970 M 54 From: Mitra Greenberg MD PCP: Care Physician,No Primary Status: ADM IN Study: Abdomen Limited Date of Exam: 02/28/25 Exam# [id number] Ordering Dr: Howie Payne DO PROCEDURE: ABDOMEN LIMITED 02/28/2025 REASON FOR EXAM: RUQ US FOR ELEVATED LFTS W/ ABDOMINAL PAIN TECHNIQUE: Procedure Code: USABDL Modality: US Procedure: ABDOMEN LIMITED COMPARISON: None FINDINGS: Liver: Enlarged measuring 20.7 cm with homogeneous increased echogenicity. Gallbladder: Distended measuring 8.4 cm. There is thin wall with sludge demonstrated. No pericholecystic fluid collection. Negative Bardales sign. Common bile duct: Normal measuring 3.8 mm. Pancreas: Obscured by bowel gas. Kidneys: The right kidney measures 11.5 x 5.6 x 5.8 cm. Normal echogenicity and cortex with no hydronephrosis. US/Abdomen Limited IMPRESSION: Fatty hepatomegaly. Distended gallbladder with sludge however no signs to suggest cholecystitis. Reading Location: [place] [address] CC: Dr. Howie Payne DO; No Primary Care Physician Processing [employer] Supervisor: Signed Normal [facility] Basic Metabolic Profile (BMP )on 02-28-2025 BUN/CRE 9.6 RATIO Low 03-17 [facility] Comment on above: Performed By: #### L 500.2500 #### [facility] [address] [place], [address] Calcium [Mass/Vol] 7.5 mg/dL Low 7.6-11.0 [facility] Comment on above: Performed By: #### L 500.2500 #### [facility] [address] [place], [address] Chloride [Moles/Vol] 100 mmol/L Normal 98-108 [facility] Comment on above: Performed By: #### L 500.2500 #### [facility] [address] [place], [address] CO2 [Moles/Vol] 20.7 mmol/L Low 21.0-32.0 [facility] Comment on above: Performed By: #### L 500.2500 #### [facility] [address] [place], [address] Creatinine [Mass/Vol] 1.13 mg/dL Normal 0.70-1.20 [facility] Comment on above: Performed By: #### L 500.2500 #### [facility] [address] [place], [address] ECRCL 94.40 ml/min Normal 50-250 [facility] Comment on above: Performed By: #### L 500.2500 #### [facility] [address] [place], [address] GAP 12 Normal 5-15 [facility] Comment on above: Performed By: #### L 500.2500 #### [facility] [address] [place], [address] GFR/1.73 sq M.predicted among non-blacks MDRD (S/P/Bld) [Vol rate/Area] 78 mL/min/{1.73_m2} Normal >60 [facility] Comment on above: Result Comment: mL/m in/1.73m2 CKD-EPI Creatinine Equation (2020) Performed By: #### L 500.2500 #### [facility] [address] [place], [address] Glucose [Mass/Vol] 117 mg/dL High 70-99 [facility] Comment on above: Performed By: #### L 500.2500 #### [facility] [address] [place], [address] Potassium [Moles/Vol] 4.5 mmol/L Normal 3.3-5.1 [facility] Comment on above: Result Comment: Hemo lysis present, Results??could be affected. ?? Performed By: #### L 500.2500 #### [facility] [address] [place], [address] Sodium [Moles/Vol] 132 mmol/L Low 133-145 [facility] Comment on above: Performed By: #### L 500.2500 #### [facility] [address] [place], [address] Urea nitrogen [Mass/Vol] 11 mg/dL Normal 4-19 [facility] Comment on above: Performed By: #### L 500.2500 #### [facility] [address] [place], [address] BUN/CRE 9.0 RATIO Low 10-20 [facility] Comment on above: Order Comment: SPECI MEN IS MARKEDLY LIPEMIC. RESULTS MAY BE AFFECTED. Performed By: #### L 500.3400 #### [facility] [address] [place], [address] Calcium [Mass/Vol] 7.6 mg/dL Normal 7.6-11.0 [facility] [facility] Comment on above: Order Comment: SPECI MEN IS MARKEDLY LIPEMIC. RESULTS MAY BE AFFECTED. Performed By: #### L 500.3400 #### [facility] [address] [place], [address] Chloride [Moles/Vol] 101 mmol/L Normal 98-108 [facility] Comment on above: Order Comment: SPECI MEN IS MARKEDLY LIPEMIC. RESULTS MAY BE AFFECTED. Performed By: #### L 500.3400 #### [facility] [address] [place], [address] CO2 [Moles/Vol] 13.7 mmol/L Low 21.0-32.0 [facility] Comment on above: Order Comment: SONIA HERNANDEZ IS MARKEDLY LIPEMIC. RESULTS MAY BE AFFECTED. Performed By: #### L 500.3400 #### [facility] [address] [place], [address] Creatinine [Mass/Vol] 1.09 mg/dL Normal 0.70-1.20 [facility] Comment on above: Order Comment: SONIA HERNANDEZ IS MARKEDLY LIPEMIC. RESULTS MAY BE AFFECTED. Performed By: #### L 500.3400 #### [facility] [address] [place], [address] ECRCL 97.87 ml/min Normal 50-250 [facility] Comment on above: Order Comment: SONIA HERNANDEZ IS MARKEDLY LIPEMIC. RESULTS MAY BE AFFECTED. Performed By: #### L 500.3400 #### [facility] [address] [place], [address] GAP 18 High 5-15 [facility] Comment on above: Order Comment: SONIA HERNANDEZ IS MARKEDLY LIPEMIC. RESULTS MAY BE AFFECTED. Performed By: #### L 500.3400 #### [facility] [address] [place], [address] GFR/1.73 sq M.predicted among non-blacks MDRD (S/P/Bld) [Vol rate/Area] 82 mL/min/{1.73_m2} Normal >60 [facility] Comment on above: Order Comment: SONIA HERNANDEZ IS MARKEDLY LIPEMIC. RESULTS MAY BE AFFECTED. Result Comment: mL/m in/1.73m2 CKD-EPI Creatinine Equation (2020) Performed By: #### L 500.3400 #### [facility] [address] [place], [address] Glucose [Mass/Vol] 117 mg/dL High 70-99 [facility] Comment on above: Order Comment: SONIA HERNANDEZ IS MARKEDLY LIPEMIC. RESULTS MAY BE AFFECTED. Performed By: #### L 500.3400 #### [facility] [address] [place], [address] Potassium [Moles/Vol] 5.3 mmol/L High 3.3-5.1 [facility] Comment on above: Order Comment: SONIA HERNANDEZ IS MARKEDLY LIPEMIC. RESULTS MAY BE AFFECTED. Result Comment: Hemo lysis present, Results??could be affected. ?? Performed By: #### L 500.3400 #### [facility] [address] [place], [address] Sodium [Moles/Vol] 133 mmol/L Normal 133-145 [facility] Comment on above: Order Comment: SONIA HERNANDEZ IS MARKEDLY LIPEMIC. RESULTS MAY BE AFFECTED. Performed By: #### L 500.3400 #### [facility] [address] [place], [address] Urea nitrogen [Mass/Vol] 10 mg/dL Normal 4-19 [facility] Comment on above: Order Comment: SONIA HERNANDEZ IS MARKEDLY LIPEMIC. RESULTS MAY BE AFFECTED. Performed By: #### L 500.3400 #### [facility] [address] [place], [address] CBC-Complete Blood Cnt No Di ffon 02-28-2025 Erythrocyte distribution width (RBC) [Ratio] 14.1 % Normal 11.6-14.6 [facility] Comment on above: Performed By: #### L 100.0500, L500.2500 #### [facility] [address] [place], [address] Hematocrit (Bld) [Volume fraction] 44.2 % Normal 40-54 [facility] Comment on above: Performed By: #### L 100.0500, L500.2500 #### [facility] [address] [place], [address] Hemoglobin (Bld) [Mass/Vol] 15.3 g/dL Normal 13.0-16.5 [facility] Comment on above: Performed By: #### L 100.0500, L500.2500 #### [facility] [address] [place], [address] MCH (RBC) [Entitic mass] 34.0 pg High 27.0-32.0 [facility] Comment on above: Performed By: #### L 100.0500, L500.2500 #### [facility] [address] [place], [address] MCHC (RBC) [Mass/Vol] 34.6 g/dL Normal 32-36 [facility] Comment on above: Performed By: #### L 100.0500, L500.2500 #### [facility] [address] [place], [address] MCV (RBC) [Entitic vol] 98.2 fL High 80-[address] [facility] Comment on above: Performed By: #### L 100.0500, L500.2500 #### [facility] [address] [place], [address] Platelet mean volume (Bld) [Entitic vol] 10.0 fL Normal 6.2-12.0 [facility] Comment on above: Performed By: #### L 100.0500, L500.2500 #### [facility] [address] [place], [address] Platelets (Bld) [#/Vol] 165 10*3/uL Normal 150-450 [facility] Comment on above: Performed By: #### L 100.0500, L500.2500 #### [facility] [address] [place], [address] RBC (Bld) [#/Vol] 4.50 10*6/uL Low 4.6-6.2 [facility] Comment on above: Performed By: #### L 100.0500, L500.2500 #### [facility] [address] [place], [address] RDW SD 51.3 fl High 35.1-43.9 [facility] Comment on above: Performed By: #### L 100.0500, L500.2500 #### [facility] [address] [place], [address] WBC (Bld) [#/Vol] 7.0 10*3/uL Normal 4.4-11.0 [facility] Comment on above: Performed By: #### L 100.0500, L500.2500 #### [facility] [address] [place], [address] CPK Total, Creatine Kinaseon 02-28-2025 CPK TOTAL 314 U/L High 24-195 [facility] Comment on above: Performed By: #### L 501.3620 #### [facility] [address] [place], [address] Liver Profileon 02-28-2025 Albumin [Mass/Vol] 3.1 g/dL Low 3.5-5.0 [facility] Comment on above: Performed By: #### L 500.3400 #### [facility] [address] [place], [address] ALK PHOS 218 U/L High 40-129 [facility] Comment on above: Performed By: #### L 500.3400 #### [facility] [address] [place], [address] ALT [Catalytic activity/Vol] 131 U/L High <=46 [facility] Comment on above: Performed By: #### L 500.3400 #### [facility] [address] [place], [address] AST [Catalytic activity/Vol] 122 U/L High <=37 [facility] Comment on above: Result Comment: Hemo lysis present, Results??could be affected. ?? Performed By: #### L 500.3400 #### [facility] [address] [place], [address] Bilirubin [Mass/Vol] 0.91 mg/dL Normal 0.00-1.30 [facility] Comment on above: Performed By: #### L 500.3400 #### [facility] [address] [place], [address] Bilirubin.direct [Mass/Vol] 0.52 mg/dL High 0.00-0.30 [facility] Comment on above: Result Comment: Hemo lysis present, Results??could be affected. ?? Performed By: #### L 500.3400 #### [facility] [address] [place], [address] Globulin (S) [Mass/Vol] 2.8 g/dL Normal 2.2-4.2 [facility] Comment on above: Performed By: #### L 500.3400 #### [facility] [address] [place], [address] T PROT 5.9 g/dL Normal 5.9-8.4 [facility] Comment on above: Performed By: #### L 500.3400 #### [facility] [address] [place], [address] Venous Blood Gason 5 Blood Gas Type ALENA Normal [facility] Comment on above: Performed By: #### L 500.3400 #### [facility] [address] [place], [address] CO2 [Moles/Vol] 28 mmol/L Normal 23-33 [facility] Comment on above: Performed By: #### L 500.3400 #### [facility] [address] [place], [address] FI02 21.0 Normal [facility] Comment on above: Performed By: #### L 500.3400 #### [facility] [address] [place], [address] HCO3 (Bld) [Moles/Vol] 27 mmol/L High 22-26 [facility] Comment on above: Performed By: #### L 500.3400 #### [facility] [address] [place], [address] O2 Delivery Dev Not entered [facility] Comment on above: Performed By: #### L 500.3400 #### [facility] [address] [place], [address] SITE Not entered [facility] Comment on above: Performed By: #### L 500.3400 #### [facility] [address] [place], [address] VBG BE 3 mmol/L Normal -1.0-3.5 [facility] Comment on above: Performed By: #### L 500.3400 #### [facility] [address] [place], [address] VBG pCO2 39.6 mmHg Low 41-51 [facility] Comment on above: Performed By: #### L 500.3400 #### [facility] [address] [place], [address] VBG pH 7.45 High 7.32-7.42 [facility] Comment on above: Performed By: #### L 500.3400 #### [facility] [address] [place], [address] VBG PO2 60 mmHg High 25-40 [facility] Comment on above: Performed By: #### L 500.3400 #### [facility] [address] [place], [address] VBG SO2 92 High 50-70 [facility] Comment on above: Performed By: #### L 500.3400 #### [facility] [address] [place], [address] Absolute lymphocyte countOrd ered By: Gerald Lenz on 02-27-2025 Lymphocytes Auto (Unsp spec) [#/Vol] 2.56 10*3/uL 0.83-4.51 [facility] Absolute neutrophil countOrd ered By: Gerald Lenz on 02-27-2025 Neutrophils (Bld) [#/Vol] 5.2 10*3/uL 2.0-7.7 [facility] Alcohol, Blood (Medical)-Ser umon 02-27-2025 SERUM ETOH < 10.1 Normal <=10.0 [facility] Comment on above: Result Comment: Ceasar alex Present, Results will be affected, Requires Recollection. Hemolysis Present, Results may be affected. This test is for medical purposes only. The legal definition of intoxication varies according to local law. Performed By: #### L 500.3400 #### [facility] [address] [place], [place], [address] Amphetamine detection with 1 000 ng/mL as cutoffOrdered By: Gerald Lenz on 02-27-2025 Amphetamines Screen method >1000 ng/mL Ql (U) Negative < 200 ng/mL [facility] Anion gap in Serum or Plasma Ordered By: Gerald Lenz on 02-27-2025 Anion gap [Moles/Vol] 18 mmol/L High 5-15 [facility] Automated lymphocyte count a s percentage of total leukocytesOrdered By: Gerald Lenz on 02-27-2025 Lymphocytes/100 WBC Auto (Unsp spec) 30.0 % 19-41 [facility] BUN/creatinine ratioOrdered By: Gerald Lenz on 02-27-2025 Urea nitrogen/Creatinine [Mass ratio] 13.9 mg/mg 03-17 [facility] Basic Metabolic Profile (BMP )on 02-27-2025 BUN/CRE 13.9 RATIO Normal 03-17 [facility] Comment on above: Order Comment: SPECI MEN IS MARKEDLY LIPEMIC. RESULTS MAY BE AFFECTED. Performed By: #### L 500.3400 #### [facility] [address] [place], [address] Calcium [Mass/Vol] 8.1 mg/dL Normal 7.6-11.0 [facility] Comment on above: Order Comment: SONIA HERNANDEZ IS MARKEDLY LIPEMIC. RESULTS MAY BE AFFECTED. Performed By: #### L 500.3400 #### [facility] [address] [place], [address] Chloride [Moles/Vol] 93 mmol/L Low 98-108 [facility] Comment on above: Order Comment: SONIA HERNANDEZ IS MARKEDLY LIPEMIC. RESULTS MAY BE AFFECTED. Performed By: #### L 500.3400 #### [facility] [address] [place], [address] CO2 [Moles/Vol] 15.7 mmol/L Low 21.0-32.0 [facility] Comment on above: Order Comment: SONIA HERNANDEZ IS MARKEDLY LIPEMIC. RESULTS MAY BE AFFECTED. Performed By: #### L 500.3400 #### [facility] [address] [place], [address] Creatinine [Mass/Vol] 1.17 mg/dL Normal 0.70-1.20 [facility] Comment on above: Order Comment: SONIA HERNANDEZ IS MARKEDLY LIPEMIC. RESULTS MAY BE AFFECTED. Performed By: #### L 500.3400 #### [facility] [address] [place], [address] ECRCL 91.18 ml/min Normal 50-250 [facility] Comment on above: Order Comment: SONIA HERNANDEZ IS MARKEDLY LIPEMIC. RESULTS MAY BE AFFECTED. Performed By: #### L 500.3400 #### [facility] [address] [place], [address] GAP 18 High 5-15 [facility] Comment on above: Order Comment: SONIA HERNANDEZ IS MARKEDLY LIPEMIC. RESULTS MAY BE AFFECTED. Performed By: #### L 500.3400 #### [facility] [address] [place], [address] GFR/1.73 sq M.predicted among non-blacks MDRD (S/P/Bld) [Vol rate/Area] 75 mL/min/{1.73_m2} Normal >60 [facility] Comment on above: Order Comment: SONIA HERNANDEZ IS MARKEDLY LIPEMIC. RESULTS MAY BE AFFECTED. Result Comment: mL/m in/1.73m2 CKD-EPI Creatinine Equation (2020) Performed By: #### L 500.3400 #### [facility] [address] [place], [address] Glucose [Mass/Vol] 181 mg/dL High 70-99 [facility] Comment on above: Order Comment: SONIA HERNANDEZ IS MARKEDLY LIPEMIC. RESULTS MAY BE AFFECTED. Performed By: #### L 500.3400 #### [facility] [address] [place], [address] Potassium [Moles/Vol] 5.1 mmol/L Normal 3.3-5.1 [facility] Comment on above: Order Comment: SONIA HERNANDEZ IS MARKEDLY LIPEMIC. RESULTS MAY BE AFFECTED. Result Comment: Hemo lysis present, Results??could be affected. ?? Performed By: #### L 500.3400 #### [facility] [address] [place], [address] Sodium [Moles/Vol] 126 mmol/L Low 133-145 [facility] Comment on above: Order Comment: SONIA HERNANDEZ IS MARKEDLY LIPEMIC. RESULTS MAY BE AFFECTED. Performed By: #### L 500.3400 #### [facility] [address] [place], [address] Urea nitrogen [Mass/Vol] 16 mg/dL Normal 4-19 [facility] Comment on above: Order Comment: SONIA HERNANDEZ IS MARKEDLY LIPEMIC. RESULTS MAY BE AFFECTED. Performed By: #### L 500.3400 #### [facility] [address] [place], [address] Basophil percentageOrdered B y: Gerald Lenz on 02-27-2025 Basophils/100 WBC (Bld) 1.2 % High 0-[address] [facility] Bilirubin directOrdered By: Howie Payne on 02-27-2025 Bilirubin.direct [Mass/Vol] 0.48 mg/dL High 0.00-0.30 [facility] Comment on above: Hemolysis present, R esults could be affected. Bilirubin, totalOrdered By: Howie Payne on 02-27-2025 Bilirubin [Mass/Vol] 0.94 mg/dL 0.00-1.30 [facility] CBC W/Diff, Automatedon Platelets (Bld) [#/Vol] 195 10*3/uL Normal 150-450 [facility] Comment on above: Performed By: #### L 501.9100, L100.0100, L505.5000, L500.2500 ####[facility] [address] [place], [address] Hematocrit (Bld) [Volume fraction] 43.0 % Normal 40-54 [facility] Comment on above: Performed By: #### L 501.9100, L100.0100, L505.5000, L500.2500 ####[facility] [address] [place], [address] Hemoglobin (Bld) [Mass/Vol] 15.5 g/dL Normal 13.0-16.5 [facility] Comment on above: Performed By: #### L 501.9100, L100.0100, L505.5000, L500.2500 ####[facility] [address] [place], [address] RBC (Bld) [#/Vol] 4.45 10*6/uL Low 4.6-6.2 [facility] Comment on above: Performed By: #### L 501.9100, L100.0100, L505.5000, L500.2500 ####[facility] [address] [place], [address] Absolute Lymph 2.56 X10 3/uL Normal 0.83-4.51 [facility] Comment on above: Performed By: #### L 501.9100, L100.0100, L505.5000, L500.2500 ####[facility] [address] [place], [address] Absolute Neut 5.2 X10 3/uL Normal 2.0-7.7 [facility] Comment on above: Performed By: #### L 501.9100, L100.0100, L505.5000, L500.2500 ####[facility] [address] [place], [address] Basophils/100 WBC (Bld) 1.2 % High 0-[address] [facility] Comment on above: Performed By: #### L 501.9100, L100.0100, L505.5000, L500.2500 ####[facility] [address] [place], [address] Eosinophils/100 WBC (Bld) 2.1 % Normal 0-5 [facility] Comment on above: Performed By: #### L 501.9100, L100.0100, L505.5000, L500.2500 ####[facility] [address] [place], [address] Erythrocyte distribution width (RBC) [Ratio] 13.9 % Normal 11.6-14.6 [facility] Comment on above: Performed By: #### L 501.9100, L100.0100, L505.5000, L500.2500 ####[facility] [address] [place], [address] IG% 0.200 Normal 0.0-0.9 [facility] Comment on above: Result Comment: IG% - Immature Granulocytes (promyelocytes, myelocytes and metamyelocytes) > 1% indicates that a LEFT SHIFT is Present. Performed By: #### L 501.9100, L100.0100, L505.5000, L500.2500 ####[facility] [address] [place], [address] Lymphocytes/100 WBC (Bld) 30.0 % Normal 19-41 [facility] Comment on above: Performed By: #### L 501.9100, L100.0100, L505.5000, L500.2500 ####[facility] [address] [place], [address] MCH (RBC) [Entitic mass] 35.9 pg High 27.0-32.0 [facility] Comment on above: Performed By: #### L 501.9100, L100.0100, L505.5000, L500.2500 ####[facility] [address] [place], [address] MCHC (RBC) [Mass/Vol] 37.9 g/dL High 32-36 [facility] Comment on above: Performed By: #### L 501.9100, L100.0100, L505.5000, L500.2500 ####[facility] [address] [place], [address] MCV (RBC) [Entitic vol] 94.7 fL High 80-[address] [facility] Comment on above: Performed By: #### L 501.9100, L100.0100, L505.5000, L500.2500 ####[facility] [address] [place], [address] Monocytes/100 WBC (Bld) 5.5 % Normal 0-[address] [facility] Comment on above: Performed By: #### L 501.9100, L100.0100, L505.5000, L500.2500 ####[facility] [address] [place], [address] Neutrophils/100 WBC (Bld) 61.0 % Normal 47-70 [facility] Comment on above: Performed By: #### L 501.9100, L100.0100, L505.5000, L500.2500 ####[facility] [address] [place], [address] Nucleated RBC (Bld) [#/Vol] 0 10*3/uL Normal 0-5 [facility] Comment on above: Performed By: #### L 501.9100, L100.0100, L505.5000, L500.2500 ####[facility] [address] [place], [address] Platelet mean volume (Bld) [Entitic vol] 9.8 fL Normal 6.2-12.0 [facility] Comment on above: Performed By: #### L 501.9100, L100.0100, L505.5000, L500.2500 ####[facility] [address] [place], [address] RDW SD 48.7 fl High 35.1-43.9 [facility] Comment on above: Performed By: #### L 501.9100, L100.0100, L505.5000, L500.2500 ####[facility] [address] [place], [address] WBC (Bld) [#/Vol] 8.5 10*3/uL Normal 4.4-11.0 [facility] Comment on above: Performed By: #### L 501.9100, L100.0100, L505.5000, L500.2500 ####[facility] [address] [place], [address] Carbon dioxide, total [Moles /volume] in Central venous bloodOrdered By: Gerald Lenz on 02-27-2025 CO2 [Moles/Vol] 15.7 mmol/L Low 21.0-32.0 [facility] Chloride assayOrdered By: Gt Lenz on 02-27-2025 Chloride [Moles/Vol] 93 mmol/L Low 98-108 [facility] Emergency Department Summary on 02-27-2025 Emergency Department Summary [facility] Medical Records Department [address] [place] [address] Emergency Department Summary 02/27/25 MR#: [id number] Acct: [id number] Name: YOGI SAWYER Rep #: [id number] : 1970 54 From: Gerald Lenz DO PCP: Care Physician,No Primary Status:REG ER Location: ED HPI History of Present Illness Chief Complaint: Substance Abuse PFSH PFSH Home Medications ???Medication ???Instructions ???Recorded ???Last Taken ???Type albuterol sulfate 90 mcg/actuation 2 puff inhalation Q4H PRN PRN Unknown History aerosol inhaler wheezing albuterol sulfate 90 mcg/actuation 1 - 2 puff inhalation Q4H PRN ND N 11/06/23 Unknown Rx aerosol inhaler (Ventolin HFA) Wheezing #1 inh Allergy/AdvReac Type Severity Reaction Status Date / Time No Known Allergies Allergy Verified 02/27/25 12:40 Social History Smoking Status: Heavy Smoker (>10/day) EXAM Physical Exam Const Vital Signs: 02/27/25 12:38 Temperature 96.6 F L Temperature Source Temporal Pulse Rate 104 H Respiratory Rate 18 Blood Pressure 240/138 H Blood Pressure Mean 172 Pulse Ox 96 Oxygen Delivery Method Room Air MDM MDM MDM Narrative Medical decision making narrative: HISTORY OF PRESENT ILLNESS: Chief complaint: Alcohol detox 54-year-old male history of alcohol abuse, COPD presents with concern for alcohol abuse. Request admission for detox. No physical complaints at this time. No headache, no chest pain, abdominal pain, back pain or focal weakness REVIEW OF SYSTEMS: Pertinent positives: None reported Pertinent negatives: As per HPI PHYSICAL EXAM: Nursing triage notes reviewed, Vital signs reviewed Constitutional: please see mdm HENT: MMM Eyes: Pupils equal round and reactive to light, Extraocular muscles intact Neck: No stridor, no JVD, full neck ROM Lungs: Clear to auscultation, No wheezing or rales. No increased work of breathing, no conversational dyspnea, no accessory muscle use, no nasal flaring. No respiratory distress noted Heart: Regular rate and rhythm, No murmurs, No rubs and No gallops, 2+ distal pulses (radial, femoral, posterior tibial) in all extremities Abdomen: Soft, there is no tenderness, rigidity, rebound or guarding, no obvious peritoneal signs, no palpable pulsatile abdominal masses, no auscultated abdominal bruit : No CVAT Extremities: No edema Neuro: No new focal neurological deficits, cranial nerves II through XII intact, 5/5 strength in all present extremities. Intact sensation to light touch in all present extremities, 2+ reflexes bilateral patella tendons. Skin: No rash or lesions noted MEDICAL DECISION MAKING: Chief Complaint: please see HPI External records reviewed: Reviewed prior ED record from 2023 for which patient was evaluated for abdominal pain Factors affecting care: none Social determinants of health: none History obtained from others: none Consults: Internal medicine MDM Narrative: The patient is initially hypertensive with blood pressure 240/138, tachycardic. To be alcohol withdrawal I obtained labs for medical clearance ALL IMAGES (IF OBTAINED) HAVE BEEN PERSONALLY REVIEWED AND INTERPRETED BY MYSELF. CBC pending Serum alcohol negative BMP without significant electrolyte abnormalities, hyponatremia likely secondary to beer potomania, noted metabolic acidosis likely secondary to alcohol ketoacidosis, no acute kidney injury Urine tox screen positive cannabinoids otherwise negative On re-evaluation patient's blood pressure improved to 156/101 heart rate improved to 95 he is appropriate for admission with a ramp program Discussed with hospitalist who agreed admit the patient. The patient and/or family, caregivers express understanding. The patient and/or family, caregivers agrees with the plan. Shared decision making: I will have a discussion with the patient and or visitors regarding risk/benefits of further testing or admission. They will be made aware of of the risk/benefits inherent in this decision they will be given the opportunity to voice understanding. Total critical care time today provided was at least 0 minutes. This excludes separately billable procedures. Critical care time (if documented) is secondary to the patient having high probability of clinically significant/life threatening deterioration in the patient's condition which required my urgent intervention. Impression: 1. Alcohol abuse 2. Encounter for alcohol detox 3. Hyponatremia Dispo: Admit to [facility] This note was generated with [employer] software. It may contain incorrect words, spelling, and punctuation that were not noted in review of the chart prior to signing. Discha (more content not included)... Normal [facility] Eosinophil percentageOrdered By: Gerald Lenz on 02-27-2025 Eosinophils/100 WBC (Bld) 2.1 % 0-5 [facility] Erythrocyte distribution wid th ratioOrdered By: Gerald Lenz on 02-27-2025 Erythrocyte distribution width (RBC) [Ratio] 13.9 % 11.6-14.6 [facility] Erythrocyte distribution wid th standard deviationOrdered By: Gerald Lenz on 02-27-2025 Erythrocyte distribution width (RBC) [Ratio] 48.7 fl High 35.1-43.9 [facility] Glomerular filtration rate ( GFR) estimation/1.73 sq m using serum, plasma, or whole bOrdered By: Gerald Lenz on 02-27-2025 GFR/1.73 sq M.predicted among non-blacks MDRD (S/P/Bld) [Vol rate/Area] 75 mL/min/{1.73_m2} >60 [facility] Comment on above: mL/min/1.73m2 CKD-EP I Creatinine Equation (2020) H AND P Exam - [facility] 02-27-2025 H&P Exam - Hospitalist [facility] Medical Records Department [address] [place] [id number] H P Exam - Hospitalist 02/27/25 1454 MR#: [id number] Acct: [id number] Name: YOGI SAWYER Rep #: [id number] : 1970 54 From: Howie Payne DO PCP: Care Physician,No Primary Status:ADM IN Location[place] [facility] [id number] HPI - General General Date of Admission: 02/27/25 Date of Service: 02/27/25 Chief Complaint: Alcohol detox HPI Narrative YOGI SAWYER, is a 54 M who presented to [facility] ED on 02/27/2025 for alcohol detox. History significant for alcohol abuse and tobacco dependence. He was last seen in the ED here in October 2023 for suspected alcoholic gastritis. Patient reports drinking 8-12 beers daily. Last drink was night prior to admission. Alcohol level negative in the ED. On arrival to the ED he was severely hypertensive to the 240s over 130s and had mild sinus tachycardia to the 100s. Was otherwise afebrile and stable on room air at rest. Stated that he typically drinks in the morning and felt like he was having alcohol withdrawal symptoms of anxiety and tremors. He was given doses of IV Ativan and p.o. phenobarbital in the ED with significant improvement in his blood pressure to the 140 systolic and heart rate to the 80s. Given desire for detox, hospitalist was contacted for admission. I saw the patient at bedside in the ED. Patient had mild somnolence and facial flushing noted but was otherwise sitting back comfortably in bed and answering questions appropriately. He reported that his withdrawal symptoms were moderately improved after doses of Ativan and phenobarbital. Notes that he has been through alcohol detox in the hospital before but it was over 10 years ago. He smokes about 1 pack of cigarettes daily. He has been told his blood pressure was high in the past but states he exercised more a few years ago and lost some weight with improvement in his blood pressure. Has never been on an antihypertensive before. Patient does report ongoing gastritis type symptoms, similar to what he reported at ED visit last year. States he will take Tums and Pepcid from time to time with only some improvement. Denies any significant acid reflux symptoms. No other acute concerns at this time. Will be admitted for further management. [facility] Home Medications ???Medication ???Instructions ???Recorded ???Last Taken ???Type albuterol sulfate 90 mcg/actuation 2 puff inhalation Q4H PRN PRN Unknown History aerosol inhaler wheezing albuterol sulfate 90 mcg/actuation 1 - 2 puff inhalation Q4H PRN ND N 11/06/23 Unknown Rx aerosol inhaler (Ventolin HFA) Wheezing #1 inh Allergy/AdvReac Type Severity Reaction Status Date / Time No Known Allergies Allergy Verified 02/27/25 12:40 Social History Smoking Status: Heavy Smoker (>10/day) ROS Constitutional Constitutional: Denies chills, fatigue, fever(s) or weakness Cardiovascular Cardiovascular: Denies chest pain Respiratory/Chest Respiratory/Chest: Denies shortness of breath at rest Gastrointestinal Gastrointestinal: Denies abdominal pain, nausea or vomiting Musculoskeletal Musculoskeletal: Denies arthralgias or myalgias Neurologic Neurologic: Denies dizziness, focal weakness or headache(s) Psychiatric Psychiatric: Reports anxiety Vital Signs Vital Signs Vital Signs: 02/27/25 12:38 02/27/25 13:38 02/27/25 14:00 Temperature 96.6 F L Temperature Source Temporal Pulse Rate 104 H 97 95 Respiratory Rate 18 20 H 18 Blood Pressure 240/138 H 161/104 H 156/101 H Blood Pressure Mean 172 123 119 Pulse Ox 96 97 99 Oxygen Delivery Method Room Air Room Air Weight Weight: 101.803 kg Body Mass Index (BMI) 30.4 Physical Exam Const alert, oriented x3 and no apparent distress Constitutional Narrative: Middle-aged male, class I obesity, mild somnolence and facial flushing noted but otherwise sitting back comfortably in bed, answering questions appropriately, in no acute distress. General Appearance: cooperative and comfortable HEENT normocephalic, head/scalp atraumatic, hearing grossly normal bilaterally, nasal mucous membranes and turbinates normal and moist oral mucous membranes Eyes PERRL, EOMs intact bilaterally and conjunctivae normal Neck full ROM Chest inspection of chest normal Resp normal respiratory effort, normal air movement, no use of accessory muscles and clear to auscultation bilaterally Cardio regular rate, regular rhythm, no murmurs and peripheral pulses 2+ throughout GI normal to inspection, nondistended, normoactive bowel sounds, soft to palpation, non-tender and non- distended Back/Spine normal ROM Extremity normal to inspection, full ROM and no pedal edema Skin no rashes (more content not included)... Normal [facility] Hematocrit Auto (Bld) [Volum e fraction]Ordered By: Gerald Lenz on 02-27-2025 Hematocrit (Bld) [Volume fraction] 43.0 % 40-54 [facility] Hemoglobin measurementOrdere d By: Gerald Lenz on 02-27-2025 Hemoglobin (Bld) [Mass/Vol] 15.5 g/dL 13.0-16.5 [facility] Immature granulocytes/100 WB C Auto (Bld)Ordered By: Gerald Lenz on 02-27-2025 Immature granulocytes/100 WBC (Bld) 0.200 % 0.0-0.9 [facility] Comment on above: IG% - Immature Granu locytes (promyelocytes, myelocytes and metamyelocytes) > 1% indicates that a LEFT SHIFT is Present. Laboratory - Chemistry and C hemistry - challengeOrdered By: Howie Payne on 02-27-2025 AST [Catalytic activity/Vol] 170 U/L High <38 [facility] Comment on above: Lipemia Present, Res ults will be affected, Requires Recollection.Hemolysis present, Results could be affected. Liver Profileon 02-27-2025 Albumin [Mass/Vol] 3.4 g/dL Low 3.5-5.0 [facility] Comment on above: Result Comment: Ceasar alex Present, Results will be affected, Requires Recollection. Performed By: #### L 500.3400 #### [facility] [address] [place], [address] ALK PHOS 293 U/L High 40-129 [facility] Comment on above: Result Comment: Hemo lysis Present, Results may be affected. Performed By: #### L 500.3400 #### [facility] [address] [place], [address] ALT [Catalytic activity/Vol] 160 U/L High <=46 [facility] Comment on above: Result Comment: Ceasar alex Present, Results will be affected, Requires Recollection. Hemolysis present, Results??could be affected. ?? Performed By: #### L 500.3400 #### [facility] [address] [place], [address] AST [Catalytic activity/Vol] 170 U/L High <=37 [facility] Comment on above: Result Comment: Ceasar alex Present, Results will be affected, Requires Recollection. Hemolysis present, Results??could be affected. ?? Performed By: #### L 500.3400 #### [facility] [address] [place], [address] Bilirubin [Mass/Vol] 0.94 mg/dL Normal 0.00-1.30 [facility] Comment on above: Performed By: #### L 500.3400 #### [facility] [address] [place], [address] Bilirubin.direct [Mass/Vol] 0.48 mg/dL High 0.00-0.30 [facility] Comment on above: Result Comment: Hemo lysis present, Results??could be affected. ?? Performed By: #### L 500.3400 #### [facility] [address] [place], [address] Globulin (S) [Mass/Vol] 3.4 g/dL Normal 2.2-4.[address] [facility] Comment on above: Performed By: #### L 500.3400 #### [facility] [address] [place], [address] T PROT 6.8 g/dL Normal 5.9-8.4 [facility] Comment on above: Performed By: #### L 500.3400 #### [facility] [address] [place], [address] MCV (mean corpuscular volume ) determinationOrdered By: Gerald Lenz on 02-27-2025 MCV (RBC) [Entitic vol] 94.7 fL High 80-[address] [facility] Mean corpuscular hemoglobin (MCH) determinationOrdered By: Gerald Lenz on 02-27-2025 MCH (RBC) [Entitic mass] 35.9 pg High 27.0-32.0 [facility] Mean corpuscular hemoglobin concentration (MCHC) determinationOrdered By: Gerald Lenz on 02-27-2025 MCHC (RBC) [Mass/Vol] 37.9 g/dL High 32-36 [facility] Mean platelet volume determi nationOrdered By: Gerald Lenz on 02-27-2025 Platelet mean volume (Bld) [Entitic vol] 9.8 fL 6.2-12.0 [facility] Monocyte percentageOrdered B y: Gerald Lenz on 02-27-2025 Monocytes/100 WBC (Bld) 5.5 % 0-10 [facility] Neutrophil percentageOrdered By: Gerald Lenz on 02-27-2025 Neutrophils/100 WBC (Bld) 61.0 % 47-70 [facility] No Panel InformationOrdered By: Gerald Lenz on 02-27-2025 Urine Buprenorphine Qualitative Negative < 200 ng/mL [facility] Urine Oxycodone Screen Negative < 100 ng/mL [facility] Nucleated red blood cell per centageOrdered By: Gerald Lenz on 02-27-2025 Nucleated RBC/100 WBC (Bld) [Ratio] 0 % 0-5 [facility] Osmolality urOrdered By: Shaista Payne on 02-27-2025 Osmolality (U) [Osmolality] 477 mOsm/KG >50 [facility] Comment on above: Normal Urine Referen ce Ranges Random: 50 - 1200 mOsm/kg H20 depending on fluid intake Random: >850 mOsm/kg after 12 hour fluid restriction 24 hour: ~300 - 900 mOsm/kg H2O Osmolality, Serumon 02-28-20 25 OSMOLALITY,SER 307 mOsm/KG High 275-295 [facility] Comment on above: Performed By: #### L 500.3400 #### [facility] [address] [place], [place], [id number] Osmolality, Urineon 02-28-20 25 OSMOLALITY,UR 477 mOsm/KG Normal [facility] Comment on above: Result Comment: Normal Urine Reference Ranges Random: 50 - 1200 mOsm/kg H20 depending on fluid intake Random: >850 mOsm/kg after 12 hour fluid restriction 24 hour: 300 - 900 mOsm/kg H2O Performed By: #### L 500.3400 #### [facility] [address] [place], [address] Platelet countOrdered By: Gt Lenz on 02-27-2025 Platelets (Bld) [#/Vol] 195 10*3/uL 150-450 [facility] Potassium measurement (mass/ volume)Ordered By: Gerald Lenz on 02-27-2025 Potassium (Unsp spec) [Mass/Vol] 5.1 mmol/L 3.3-5.1 [facility] Comment on above: Hemolysis present, R esults could be affected. Quantitative urine opiates m easurementOrdered By: Gerald Lenz on 02-27-2025 Opiates Ql (U) Negative < 300 ng/mL [facility] RBC Auto (Bld) [#/Vol]Ordere d By: Gerald Lenz on 02-27-2025 RBC (Bld) [#/Vol] 4.45 10*6/uL Low 4.6-6.2 [facility] Screening urine fentanyl vinayak surementOrdered By: Gerald Lenz on 02-27-2025 fentaNYL Screen Ql (U) Negative <5 ng/mL [facility] Comment on above: CONFIRMATORY TESTING FOR ALL POSITIVE URINE DRUG SCREENRESULTS WILL ONLY BE SENT OUT UPON PHYSICIAN ORDER. Lexy Pro Urine Drug Screen methods provide only preliminaryanalytical test results. A more specific alternate chemicalmethod must be used in order to obtain a confirmedanalytical result. Gas chromatography/mass spectrometery(GC/MS) is the preferred confirmatory method. Clinicalconsideration and professional judgement should be appliedto any drug of abuse test result, particularly whenpreliminary positive results are used. Urine TCA testing must be ordered separately. Use test mnemonic: UTCA Serum creatinine measurement (mass/volume)Ordered By: Gerald Lenz on 02-27-2025 Creatinine [Mass/Vol] 1.17 mg/dL 0.70-1.20 [facility] Serum globulin measurementOr dered By: Howie Payne on 02-27-2025 Globulin (S) [Mass/Vol] 3.4 g/dL 2.2-4.[address] [facility] Serum glucose measurement (m ass/volume)Ordered By: Gerald Lenz on 02-27-2025 Glucose [Mass/Vol] 181 mg/dL High 70-99 [facility] Serum or plasma alanine smallwood otransferase (ALT) measurementOrdered By: Howie Payne on 02-27-2025 ALT [Catalytic activity/Vol] 160 U/L High <47 [facility] Comment on above: Lipemia Present, Res ults will be affected, Requires Recollection.Hemolysis present, Results could be affected. Serum or plasma albumin zac urement (mass/volume)Ordered By: Howie Payne on 02-27-2025 Albumin [Mass/Vol] 3.4 g/dL Low 3.5-5.0 [facility] Comment on above: Lipemia Present, Res ults will be affected, Requires Recollection. Serum or plasma alkaline ana sphatase measurementOrdered By: Howie Payne on 02-27-2025 ALP [Catalytic activity/Vol] 293 U/L High 40-129 [facility] Comment on above: Hemolysis Present, R esults may be affected. Serum or plasma calcium zac urement (mass/volume)Ordered By: Gerald Lenz on 02-27-2025 Calcium [Mass/Vol] 8.1 mg/dL 7.6-11.0 [facility] Serum or plasma ethanol zac urement (mass/volume)Ordered By: Gerald Lenz on 02-27-2025 Ethanol [Mass/Vol] mg/dL <10.1 [facility] Comment on above: Lipemia Present, Res ults will be affected, Requires Recollection.Hemolysis Present, Results may be affected.This test is for medical purposes only. The legal definition of intoxication varies according to local law. Serum or plasma urea nitroge n measurement (mass/volume)Ordered By: Gerald Lenz on 02-27-2025 Urea nitrogen [Mass/Vol] 16 mg/dL 4-19 [facility] Sodium levelOrdered By: Rudy Lenz on 02-27-2025 Sodium [Moles/Vol] 126 mmol/L Low 133-145 [facility] Total proteinOrdered By: Shaista Payne on 02-27-2025 Protein [Mass/Vol] 6.8 g/dL 5.9-8.4 [facility] Triglycerides measurementOrd ered By: Howie Payne on 02-27-2025 Triglycerides measurement See comment <199 [facility] Comment on above: The drugs N-Acetylcy steine and Metamizole may falsely depress this assay. Urine Drug Screen (VISTA)on 02-27-2025 AMPHETAMINES Negative Normal <1000 ng/mL [facility] Comment on above: Performed By: #### L 501.9100, L100.0100, L505.5000, L500.2500 ####[facility] [address] [place], [address] BARBITIURATES Negative Normal < 200 ng/mL [facility] Comment on above: Performed By: #### L 501.9100, L100.0100, L505.5000, L500.2500 ####[facility] [address] [place], [address] BENZODIAZIPINE Negative Normal < 200 ng/mL [facility] Comment on above: Performed By: #### L 501.9100, L100.0100, L505.5000, L500.2500 ####[facility] [address] [place], [address] BUP Ur Drug Scr Negative Normal < 200 ng/mL [facility] Comment on above: Performed By: #### L 501.9100, L100.0100, L505.5000, L500.2500 ####[facility] [address] [place], [address] COCAINE Negative Normal < 300 ng/mL [facility] Comment on above: Performed By: #### L 501.9100, L100.0100, L505.5000, L500.2500 ####[facility] [address] [place], [address] Fentanyl Negative Normal <5 ng/mL [facility] Comment on above: Result Comment: CONF IRMATORY TESTING FOR ALL POSITIVE URINE DRUG SCREEN RESULTS WILL ONLY BE SENT OUT UPON PHYSICIAN ORDER. Lexy Pro Urine Drug Screen methods provide only preliminary analytical test results. A more specific alternate chemical method must be used in order to obtain a confirmed analytical result. Gas chromatography/mass spectrometery (GC/MS) is the preferred confirmatory method. Clinical consideration and professional judgement should be applied to any drug of abuse test result, particularly when preliminary positive results are used. Urine TCA testing must be ordered separately. Use test mnemonic: UTCA Performed By: #### L 501.9100, L100.0100, L505.5000, L500.2500 ####[facility] [address] [place], [address] METHADONE Negative Normal < 300 ng/mL [facility] Comment on above: Performed By: #### L 501.9100, L100.0100, L505.5000, L500.2500 ####[facility] [address] [place], [address] OPIATES Negative Normal < 300 ng/mL [facility] Comment on above: Performed By: #### L 501.9100, L100.0100, L505.5000, L500.2500 ####[facility] [address] [place], [address] OXYCODONE Negative Normal < 100 ng/mL [facility] Comment on above: Performed By: #### L 501.9100, L100.0100, L505.5000, L500.2500 ####[facility] [address] [place], [address] PCP Negative Normal < 25 ng/mL [facility] Comment on above: Performed By: #### L 501.9100, L100.0100, L505.5000, L500.2500 ####[facility] [address] [place], [address] THC Positive Normal < 50 ng/mL [facility] Comment on above: Result Comment: If c onfirmation testing is needed, a separate order will be required to send out testing to the reference laboratory. Performed By: #### L 501.9100, L100.0100, L505.5000, L500.2500 ####[facility] [address] [place], [address] Urine Sodiumon 02-27-2025 Sodium (U) [Moles/Vol] 34 mmol/L Normal Not Establ. [facility] Comment on above: Performed By: #### L 500.3400 #### [facility] [address] [place], [address] Urine benzodiazepine levelOr dered By: Gerald Lenz on 02-27-2025 Benzodiazepines Ql (U) Negative < 200 ng/mL [facility] Urine cocaine levelOrdered B y: Gerald Lenz on 02-27-2025 Cocaine Ql (U) Negative < 300 ng/mL [facility] Urine obdyc-8-kwsmzdjpckkbcn abinol (THC) measurementOrdered By: Gerald Lenz on 02-27-2025 Cannabinoids Screen Ql (U) Positive < 50 ng/mL [facility] Comment on above: If confirmation test ing is needed, a separate order will be required to send out testing to the reference laboratory. Urine phencyclidine (PCP) de tectionOrdered By: Gerald Lenz on 02-27-2025 Phencyclidine Ql (U) Negative < 25 ng/mL [facility] Urine sodium measurement (mo les/volume)Ordered By: Howie Payne on 02-27-2025 Sodium (U) [Moles/Vol] 34 mmol/L Not Establ. [facility] White blood cell (WBC) count Ordered By: Gerald Lenz on 02-27-2025 WBC (Bld) [#/Vol] 8.5 10*3/uL 4.4-11.0 [facility]-20[facility]) -------- YOGI SAWYER ([id number]) 1970 [facility] [facility] Date Time Provider Department 02/10/25 [facility] During your visit today, we recorded the following information about you: Marissa Perez 02/10/2025 9:18 AM Signed I called and lvm for patient to call to confirm the appointment rescheduled for 03/13/25 @ 1:00 pm. Marissa Perez February 10, 2025 9:18 AM Allergies As of Date: 02/10/2025 (No Known Allergies) Date Reviewed: 10/04/2024 Reviewed by: Sofie Donato APRN.SPECIAL EDUCATION PARA PROFESSIONAL - Fully Assessed Prescriptions as of 02/10/2025 [...] Encounter Status:Closed by MARISSA PEREZ on 02/10/25 [facility]20[facility]) -------- YOGI SAWYER ([id number]) 1970 [facility] Date Time Provider Department 01/21/25 AG PSYCH AGPSYACC During your visit today, we [...] Date Reviewed: 10/04/2024 Reviewed by: Sofie Donato APRN.SPECIAL EDUCATION PARA PROFESSIONAL - Fully Assessed Prescriptions as of 01/21/2025 [...] Encounter Status:Closed by MARISSA PEREZ on 01/21/25 [facility] 01-14-2025 [facility] (AG[facility]ACC[facility] -------- YOGI SAWYER ([id number]) 1970 M [facility] Date Time Provider Department 01/14/25 PSYCH AGPSYACC During your visit today, we recorded the following information about you: Marissa ePrez 01/14/2025 3:47 PM Signed I called and left a voice message for the patient to call to schedule a Psychiatry appointment for AUD, Anxiety, Depression per referral from Sofie Donato on the [employer]. Marissa Perez January 14, 2025 3:47 PM Allergies As of Date: 01/14/2025 (No Known Allergies) Date Reviewed: 10/04/2024 Reviewed by: Sofie Donato, JOVANA.SPECIAL EDUCATION PARA PROFESSIONAL - Fully Assessed Prescriptions as of 01/14/2025 [...] Encounter Status:Closed by MARISSA PEREZ on 01/14/25 [facility] 10-09-2024 BLAKE Telephone (LETITIAMPJARED) -------- YOGI SAWYER ([id number]) 1970 M [facility] Date Time Provider Department 10/09/24 SOFIE DONATO During your visit today, we recorded the following information about you: Barney Redd 10/09/2024 1:58 PM Signed Yogi came into [...] an Alcohol assessment. JERRY Whittaker Brittny A, APRN.BLAKE 10/10/2024 12:53 PM Signed There is a provider in [place] that he can contact to schedule an in person appointment. Олег Weaevr- [phone] Brandi De La Garza 10/10/2024 12:58 PM Signed Left message for patient in reference to his request for a call back from the office Allergies As of Date: 10/09/2024 (No Known Allergies) Date Reviewed: 10/04/2024 Reviewed by: Sofie Donato APRN.SPECIAL EDUCATION PARA PROFESSIONAL - Fully Assessed Reason for Visit: need [...] Encounter Status:Closed by BARNEY REDD on 10/09/24 [facility] 10-07-2024 CASEY Telephone (AGFAMPLE) -------- YOGI SAWYER ([id number]) 1970 [facility] Date Time Provider Department 10/07/24 SOFIE DONATO During your visit today, we recorded the following information about you: Faye Humphreys MA 10/07/2024 1:23 PM Signed Pt. Brigido on stating dr. Flanagan office is not accepting new patients and he is completley out of medications. Please advise. Faye Humphreys MA Allergies As of Date: 10/07/2024 (No Known Allergies) Date Reviewed: 10/04/2024 Reviewed by: Sofie Donato APRN.SPECIAL EDUCATION PARA PROFESSIONAL - Fully Assessed Reason for Visit: Patient Question [5972] Prescriptions as of 10/07/2024 - albuterol HFA [...] Encounter Status:Closed by FAYE HUMPHREYS on 10/07/24 [facility] CNOVon 10-04-2024 CNOV Office Visit (JASON COLEMAN) -------- YOGI SAWYER ([id number]) 1970 M [facility] Date Time Provider Department 10/04/24 11:40 AM SOFIE DONATO During your visit today, we recorded the following information about you: Temperature Pulse Respiration Blood pressure 97.7 degrees 101/minute 18/minute 172/102 Weight Height 102.1 kg 1.816 m Sofie Donato, BROADBAND ENGINEER.SPECIAL EDUCATION PARA PROFESSIONAL 10/05/2024 8:27 PM Signed CHIEF COMPLAINT: Yogi is a 54-year-old male with a history of paranoia, presenting for evaluation of depression and anxiety. I reviewed past medical, surgical, social, and family histories today and updated chart. Allergies, chronic medications, and supplements were also reviewed. Recording using Cardiorobotics software for draft documentation of the visit was discussed with the patient/authorized claims service representative; all questions welcomed and answered. Patient/authorized claims service representative agreed to proceed Depression: - Reports lack [...] with mild paranoia by a psychiatrist in [place]. - Expresses frustration with the cost of [...] or sk (more content not included)... Normal [facility] 10-04-2024 [facility] Telephone (PSYLWM) -------- YOGI SAWYER ([id number]) 1970 [facility] Time Provider Department 10/04/24 ZORA MENDOZA PSYLWM During your visit today, we recorded the following information about you: Donta Wing RN 10/04/2024 12:44 PM Signed Patient calls to schedule a new patient appt with Zora. Referred from Sofie Reeves CNP. Patient requests call back at [phone]. ADONAY Alaniz M Robin, RN 10/07/2024 12:21 PM Signed Pt phoned to check if he can schedule an appt with Zora. Reports he was seen at [facility] last Monday for anxiety/depression. Per encounter's pt saw Sofie Doanto CNP, at [facility] Pt reports Parvin told him to see Zora. Asking if he is going to be able to schedule an appt with Zora? Please advise patient. RajZora blake APRN.BLAKE 10/07/2024 1:06 PM Signed Unfortunately I am not able to accept new patients at this time. Please have them call [phone] to schedule an appointment for a virtual visit with another [facility] Provider in our department. They can also call [phone] to schedule an appointment in person or virtual with a [facility] Provider. Donta Wing RN 10/10/2024 11:29 AM Signed See TE 10/09/2024. Donta Wing RN Allergies As of Date: 10/04/2024 (No Known Allergies) Date Reviewed: 10/04/2024 Reviewed by: Sofie Donato APRN.SPECIAL EDUCATION PARA PROFESSIONAL - Fully Assessed Reason for Visit: Appointment [...] Encounter Status:Closed by [facility]ING [facility] YOGI SAWYER ([id number]) 1970 [facility] Date Time Provider Department 10/04/24 SOFIE DONATO [...] psychiatry. Please advise. JERRY Mike Brittny A, APRN.SPECIAL EDUCATION PARA PROFESSIONAL 10/04/2024 3:14 PM Signed I would prefer [...] Date Reviewed: 10/04/2024 Reviewed by: Sofie Donato APRN.SPECIAL EDUCATION PARA PROFESSIONAL - Fully Assessed Reason for Visit: Patient Question [4623] Primary Visit Diagnosis:Anxiety [F41.9] Order(s):busPIRone (BUSPAR) 5 [...] Encounter Status:Closed by SOFIE DONATO on 10/04/24 [facility] HAND MIN 3 VIEWSon HAND MIN 3 VIEWS STUDY: Hand Radiographs; 02/22/2021 3:34 PM INDICATION: Trauma to right hand at work today. 2nd digit was gauzed and wrapped before x-rays. Pt missing distal phalanx of 3rd digit before accident today. COMPARISON: None available. ACCESSION NUMBER(S): [id number] ORDERING CLINICIAN: MILLY CHAVEZ DO TECHNIQUE: Three [...] MD Electronically signed by: MILLY ORTA MD [facility] Provider Note - ED v3on 01-28 Provider [...] here in the ED and Keflex and Altmar for home he understands reasons to return [...] ROUTE EVERY 6 HOURS NEEDED Drug Name: Altmar 5 mg-325 mg oral tablet Instructions: 1 [...] critically ill patient: no Electronic Signatures: Milly Chavez () (Signed 22-Feb-2021 17:27) Authored: ED Notes, HPI, PMH, PE, Clinical Impression, Attestation, Chart Review, Scores Last Updated: 22-Feb-2021 17:27 by Milly Chavez () References: 1. Data Referenced From Triage - ED 22-Feb-2021 14:51 Normal [facility] Triage - EDon 02-22-2021 Triage - ED Chart Review: ARRIVAL INFORMATION Mode of Arrival: private vehicle CHIEF COMPLAINT YGOI SAWYER is a Male patient with a [...] BMI (kg/m2): 30.761 Calculated BSA (m2) 2.24 [place] Coma Scale: Best Eye Response: (E4) spontaneous Best Motor Response: (M6) obeys commands Best Verbal Response: (V5) oriented [place] Score: 15 Cough lasting greater than 3 [...] patient cognitively impaired not cognitively impaired Interventions: Serene Fall Interventions: LOW INTERVENTIONS: *patient oriented to [...] Review, Scores, Past Medical History Bee Olivas (ADONAY) (Signed 22-Feb-2021 19:07) Authored: Quick Triage, Chart Review Last Updated: 22-Feb-2021 19:07 by Bee Olivas (ADONAY) [facility] CR Chest Portableon 06-27-19 19 CR Chest Portable Patient Name: YOGI ADAMS Diagnostic Radiology Exam Date/Time 06/27/2018 18:33:43 EST Exam CR Chest Portable Ordering Physician MD RADHA, DENISE Accession Number [id number] CPT4 Codes 34433 () Reason For Exam cough, sob Report [...] Dictated: 06/27/2018 6:36 pm Dictating Physician: MD GREG, POP THOMPSON Signed Date and Time: 06/27/2018 6:38 pm Signed by: MD GARZA GEORGE RICHARD Transcribed Date and Time: 06/27/2018 6:36 Normal [facility] ED Provider Noteon 9 Protein mass conc Emergency Department Encounter [facility] EMERGENCY DE[facility] Patient: Yogi Sawyer : [...] procedures or time spent by the physicians clinical assistant professor if they were caring for this patient. [...] for clarification. Denise Vaughan MD Acute Care [facility] Denise Vaughan MD 06/27/182011 [facility] Patient: Yogi Sawyer : 1970 [...] otherwise acutely negative except as in the [place]. Past History History reviewed. No pertinent past [...] Exam CR Chest Portable Ordering Physician MD RADHA, BEECHGROVE Accession Number [id number] CPT4 Codes 13990 () Reason For Exam cough, sob Report [...] Dictated: 06/27/2018 6:36 pm Dictating Physician: MD GREG, POP THOMPSON Signed Date and Time: 06/27/2018 6:38 pm Signed by: MD GARZA GEORGE RICHARD Transcribed Date and Time: 06/27/2018 6:36 EKG: All EKG's areinterpreted by the Emergency Department Physician in the absence of a mobility architect.?Please see their note for interpretation of EKG. [...] Ordered Status Ordering Provider 06/27/18 1900 06/27/18 1100 doxycycline monohydrate (MONODOX) capsule 100 mg ONCE Last JUL action: Given - by ANGELITO SHEFFIELD on 06/27/18 at 1857 EUGENIA LAYNE 06/27/18 17006/27/18 1646 albuterol (PROVENTIL) nebulizer solution 2.5 mg EVERY 15 MIN Last JUL action: Given - by VARGAS MCKEON on 06/27/18 at 1738 TOSHARACHEL DENISE R 06/27/18 17006/27/18 1646 ipratropium (ATROVENT) 0.02 % nebulizer solution 0.5 mg EVERY 15 MIN Last JUL action: Given - by VARGAS MCKEON on 06/27/18 at 1738 RADHA EDNISE R 06/27/18 17006/27/18 1646 predniSONE (DELTASONE) tablet 60 mg ONCE Last JUL action: Given - by WANDA PARKS on 06/27/18 at 1734 [facility] DENISE Sushila Final Impression 1. Community acquired pneumonia of [...] [employer] [facility] [employer] Eugenia Layne PA-C 06/27/181954 [facility] Vital Signs Date Time Vital Sign Value Performing Clinician Facility 02-27-2025 17:00-0400 Body temperature 98 [degF] Dr. Gerald Lenz DO Work Phone: [facility] 02-27-2025 17:00-0400 Diastolic blood pressure 79 mm[Hg] Dr. Gerald Lenz DO Work Phone: [facility] 02-27-2025 17:00-0400 Heart rate 88 /min Dr. Gerald Lenz DO Work Phone: [facility] 02-27-2025 17:00-0400 Respiratory rate 20 /min Dr. Gerald Lenz DO Work Phone: [facility] 02-27-2025 17:00-0400 SaO2% (BldA) [Mass fraction] 99 % Dr. Gerald Lenz DO Work Phone: [facility] 02-27-2025 17:00-0400 Systolic blood pressure 139 mm[Hg] Dr. Gerald Lenz DO Work Phone: [facility] 02-27-2025 12:38-0400 Body height 182.[address] Gerald Lenz DO Work Phone: [facility] 02-27-2025 12:38-0400 Body mass index (BMI) [Ratio] 30.4 kg/m2 Dr. Gerald Lenz DO Work Phone: [facility] 02-27-2025 12:38-0400 Body weight 101.[address] Gerald Lenz DO Work Phone: [facility] 10-27-2022 09:37-0400 Diastolic blood pressure 84 mm[Hg] Sofie Queden BROADBAND ENGINEER.SPECIAL EDUCATION PARA PROFESSIONAL Work Phone: [facility] 10-27-2022 09:37-0400 Systolic blood pressure 144 mm[Hg] Sofie Queden BROADBAND ENGINEER.SPECIAL EDUCATION PARA PROFESSIONAL Work Phone: [facility] 10-27-2022 09:01-0400 Body height 181.6 cm Sofie Queden BROADBAND ENGINEER.SPECIAL EDUCATION PARA PROFESSIONAL Work Phone: [facility] 10-27-2022 09:01-0400 Body temperature 98.1 [degF] Sofie Queden BROADBAND ENGINEER.SPECIAL EDUCATION PARA PROFESSIONAL Work Phone: [facility] 10-27-2022 09:01-0400 Body weight 102.06 kg Sofie Queden BROADBAND ENGINEER.SPECIAL EDUCATION PARA PROFESSIONAL Work Phone: [facility] 10-27-2022 09:01-0400 Heart rate 77 /min Sofie Queden BROADBAND ENGINEER.SPECIAL EDUCATION PARA PROFESSIONAL Work Phone: [facility] 09-22-2022 12:03-0400 Diastolic blood pressure 82 mm[Hg] Sofie Queden BROADBAND ENGINEER.SPECIAL EDUCATION PARA PROFESSIONAL Work Phone: [facility] 09-22-2022 12:03-0400 Systolic blood pressure 150 mm[Hg] Sofie Queden BROADBAND ENGINEER.SPECIAL EDUCATION PARA PROFESSIONAL Work Phone: [facility] 09-22-2022 11:20-0400 Body height 181.6 cm Sofie Queden BROADBAND ENGINEER.SPECIAL EDUCATION PARA PROFESSIONAL Work Phone: [facility] 09-22-2022 11:20-0400 Body temperature 98.2 [degF] Sofie Queden BROADBAND ENGINEER.SPECIAL EDUCATION PARA PROFESSIONAL Work Phone: [facility] 09-22-2022 11:20-0400 Body weight 98.88 kg Sofie Queden BROADBAND ENGINEER.SPECIAL EDUCATION PARA PROFESSIONAL Work Phone: [facility] 09-22-2022 11:20-0400 Heart rate 89 /min Sofie Queden BROADBAND ENGINEER.SPECIAL EDUCATION PARA PROFESSIONAL Work Phone: [facility] 09-22-2022 11:20-0400 Respiratory rate 20 /min Sofie Queden BROADBAND ENGINEER.SPECIAL EDUCATION PARA PROFESSIONAL Work Phone: [facility] 09-22-2022 11:20-0400 SaO2% (BldA) [Mass fraction] 98 % Sofie Queden BROADBAND ENGINEER.SPECIAL EDUCATION PARA PROFESSIONAL Work Phone: [facility] 02-22-2021 18:00-0400 Diastolic blood pressure 89 mm[Hg] No Pcp Required [facility] 02-22-2021 18:00-0400 Heart rate 68 /min No Pcp Required [facility] 02-22-2021 18:00-0400 Respiratory rate 18 /min No Pcp Required [facility] 02-22-2021 18:00-0400 SaO2% (BldA) [Mass fraction] 98 % No Pcp Required [facility] 02-22-2021 18:00-0400 Systolic blood pressure 146 mm[Hg] No Pcp Required [facility] 02-22-2021 16:51-0400 Body height 180.3 cm No Pcp Required [facility] 02-22-2021 16:51-0400 Body temperature 98.06 [degF] No Pcp Required [facility] 02-22-2021 16:51-0400 Body weight 100 kg No Pcp Required [facility] Encounters Encounter Date Encounter Type Care Provider Facility Start: 03-16-2025 ambulatory Ed Physician Provider Facility:[facility] Start: 02-27-2025 ambulatory No Primary Car e Physician Facility[facility] Start: 02-27-2025 End: 03-01-2025 Evaluation and management of inpatient Dr. Howie Payne DO -Medical Surgical 3 Work Phone: Start: 10-04-2024 End: 10-04-2024 ambulatory SOFIE DONATO Facility:[facility] Start: 11-03-2022 End: 11-03-2022 Patient encounter procedure Ganga Newell MD Work Phone: Otolaryngology Comment on above: Chronic rhinitis (Pr imary Dx) Start: 10-27-2022 End: 10-27-2022 Patient encounter procedure Sofie Donato BROADBAND ENGINEER.SPECIAL EDUCATION PARA PROFESSIONAL Work Phone: [facility] Comment on above: ETOH abuse (Primary Dx); Uncomplicated alcohol dependence (HCC); Heart murmur Start: 10-21-2022 Telephone encounter Sofie Donato BROADBAND ENGINEER.SPECIAL EDUCATION PARA PROFESSIONAL Work Phone: [facility] Comment on above: Appointment; disabil ity form; Referral Request Start: 09-22-2022 End: 09-22-2022 Patient encounter procedure Sofie Donato BROADBAND ENGINEER.SPECIAL EDUCATION PARA PROFESSIONAL Work Phone: [facility] Comment on above: Chronic rhinosinusit is (Primary Dx); Loss of smell; Loss of taste; Hearing deficit, bilateral; SOB (shortness of breath); Cigarette smoker; Screening for depression Start: 02-22-2021 End: 02-22-2021 Emergency department patient visit Milly Chavez [facility] Start: 06-27-2018 Emergency department patient visit UNKNOWN PROVIDER [facility] Procedures Date Procedure Procedure Detail Performing Clinician Start: 02-27-2025 Methadone measuremen t, urine Dr. Gerald Lenz DO Work Phone: Start: 02-27-[address] Gerald Lenz DO Work Phone: Start: 02-27-2025 Osmolality measureme nt, serum Dr. Gerald Lenz DO Work Phone: Plan of Treatment Date Care Activity Detail Author Start: 02-22-2031 Urine microalbumin profile DTA P,TDAP,TD (3 - Td or Tdap) [facility] Start: 02-27-2025 Admission procedure [facility] Start: 02-27-2025 Verification routine [facility] Start: 02-27-2025 Hospital admission, emergency, from emergency room, medical nature [facility] Start: 09-23-2023 COLORECTAL CANCER SCREENING COLORECTAL CANCER SCREENING [facility] Comment on above: Postponed from 05/03 (Declined at this time) Start: 09-23-2023 COVID-19 VACCINE (#1) COVID-19 VACCI NE (#1) [facility] Comment on above: Postponed from 11/01 (Declined at this time) Start: 09-23-2023 PNEUMOCOCCAL (2 - PCV) PNEUMOCOCCAL (2 - PCV) [facility] Comment on above: Postponed from 03/29 (Declined at this time) Start: 09-23-2023 SHINGRIX VACCINE (1 of 2) LEW GRIX VACCINE (1 of 2) [facility] Comment on above: Postponed from 05/03 (Declined at this time) Start: 01-27-2023 Influenza vaccination INFLUENZ A (Season Ended) [facility] Start: 07-14-2018 DIABETES SCREEN DIABETES SCREEN [facility] Start: 2017 COLOGUARD (FIT-DNA) COLOGUARD (FIT-D NA) [facility] Start: 2017 Colonoscopy COLONOSCOPY [facility] Start: [address] COLONOGRAPHY [facility] Start: 2017 FECAL OCCULT BLOOD FECAL OCCULT BLOO D [facility] Start: 2017 SIGMOIDOSCOPY SIGMOIDOSCOPY [facility] Start: 2007 LIPID SCREEN LIPID SCREEN [facility] Start: 1990 HEPATITIS C SCREENING HEPATITIS C AZ BUDDY [facility] Start: 1970 HEPATITIS B (1 of 3 - 3-dose series) HEPATITIS B (1 of 3 - 3-dose series) [facility] Cholesterol [Mass/vo lume] in Serum or Plasma [facility] Cholesterol in HDL [Mass/volume] in Serum or Plasma [facility] End: 10-28-2023 ECG COMPLETE ECG COMPLETE ECG Routine Heart murmur 1 Occurrences starting 10/27/2022 until 10/28/2023 [facility] Work Phone: Comment on above: 1 Occurrences starti ng 10/27/2022 until 10/28/2023 End: 10-28-2023 Echocardiography ECHO Cardiology Routine Heart murmur 1 Occurrences starting 10/27/2022 until 10/28/2023 [facility] Work Phone: Comment on above: 1 Occurrences starti ng 10/27/2022 until 10/28/2023 Low density lipoprot ein cholesterol measurement [facility] Total cholesterol:HD L ratio measurement [facility] VLDL cholesterol measurement [facility] [place] [facility] Immunizations Immunization Date Immunization Notes Care Provider Naveen garcia 02-22-2021 tetanus toxoid, redu blanca diphtheria toxoid, and acellular pertussis vaccine, adsorbed No Pcp Required [facility] 03-29-2018 influenza, injectabl e, quadrivalent, preservative free Sofie Queden BROADBAND ENGINEER.SPECIAL EDUCATION PARA PROFESSIONAL Work Phone: [facility] 03-29-2018 pneumococcal polysaccharide vaccine, 23 valent Sofie Queden BROADBAND ENGINEER.SPECIAL EDUCATION PARA PROFESSIONAL Work Phone: [facility] 06-12-2015 tetanus toxoid, redu blanca diphtheria toxoid, and acellular pertussis vaccine, adsorbed Sofie Queden BROADBAND ENGINEER.SPECIAL EDUCATION PARA PROFESSIONAL Work Phone: [facility] 10-14-2013 TD(adult) unspecifie d formulation Sofie Queden BROADBAND ENGINEER.SPECIAL EDUCATION PARA PROFESSIONAL Work Phone: [facility] Payers Date Payer Category Payer Self-pay 2024 Private Health Insurance [id number] 2022 Unknown 1970 Unknown [id number] [id number] [id number] Unknown [id number] Unknown [id number] Unknown [id number] [id number] [id number] Unknown [id number] 2.16.8 [id number] Unknown [id number] 2.16.8 [id number] Unknown [id number] 2.16.8 [id number] Unknown [id number] 2.16.8 [id number] Social History Date Type Detail Facility [facility] Tobacco smoking consumption unknown [facility] Start: 02-11-2020 End: 11-03-2022 Tobacco smoking status NHIS Smokes tobacco daily [facility] History of tobacco use Cigarette Smoker [facility] Start: 02-11-2020 End: 11-03-2022 Cigarettes smoked current (pack per day) - Reported 1.5 [facility] Start: 02-11-2020 End: 11-03-2022 Tobacco use and exposure User of smokeless tobacco [facility] History of tobacco use [facility]ws [facility] Start: 09-22-2022 End: 11-03-2022 Alcohol intake Current drinker of alcohol (finding) [facility] Start: 09-21-2021 History SDOH Alcohol Frequency 5 [facility] Start: 09-21-2021 History SDOH Alcohol Std Drinks 3 [facility] Start: 05-15-2021 Alcohol Comment drinks beer a few times a week [facility] Start: 1970 Sex Assigned At Not on file [facility] Start: 02-27-2025 Tobacco smoking stat us NHIS Current Heavy tobacco smoker [facility] Sex Male [facility] Start: 1970 Sex Assigned At Male [facility] Clinical Notes 09-22-2022 to 02-27-2025 Note Date & Type Note Facility 02-27-2025 Discharge summary Note Date/Time February 27, 2025 3:20pm [facility] Medical Records Department [address] [place] [address] Emergency Department Summary 02/27/25 MR#: [id number] Acct: [id number] Name: YOGI SAWYER Rep #:[id number] : 1970 54 From: Gerald Kulkarni PCP: Care Physician,No Primary Status :REG ER Location: ED HPI History of Present Illness Chief Complaint: Substance Abuse PFSH PFSH Home Medications ?Medication ?Instructions ?Recorded ?Last Taken ?Type albuterol sulfate 90 mcg/actuation 2 puff inhalation Q 4H PRN PRN 11/06/23 Unknown History aerosol inhaler wheezing albuterol sulfate 90 mcg/actuation 1 - 2 puff inhalati on Q4H PRN PRN 11/06/23 Unknown Rx aerosol inhaler (Ventolin HFA) Wheezing #1 inh Allergy/AdvReac Type Severity Reaction Status Date / Time No Known Allergies Allergy Verified 02/27/25 12:40 Social History Smoking Status: Heavy Smoker (>10/day) EXAM Physical Exam Const Vital Signs: 02/27/25 12:38 Temperature 96.6 F L Temperature Source Temporal Pulse Rate 104 H Respiratory Rate 18 Blood Pressure 240/138 H Blood Pressure Mean 172 Pulse Ox 96 Oxygen Delivery Method Room Air MDM MDM MDM Narrative Medical decision making narrative: HISTORY OF PRESENT ILLNESS: Chief complaint: Alcohol detox 54-year-old male history of alcohol abuse, COPD presents with concern for alcohol abuse. Request admission for detox. No physical complaints at this time. No headache, no chest pain, abdominal pain, back pain or focal weakness REVIEW OF SYSTEMS: Pertinent positives: None reported Pertinent negatives: As per HPI PHYSICAL EXAM: Nursing triage notes reviewed, Vital signs reviewed Constitutional: please see mdm HENT: MMM Eyes: Pupils equal round and reactive to light, Extraocular muscles intact Neck: No stridor, no JVD, full neck ROM Lungs: Clear to auscultation, No wheezing or rales. No increased work of breathing, no conversational dyspnea, no accessory muscle use, no nasal flaring. No respiratory distress noted Heart: Regular rate and rhythm, No murmurs, No rubs and No gallops, 2+ distal pulses (radial, femoral, posterior tibial) in all extremities Abdomen: Soft, there is no tenderness, rigidity, rebound or guarding, no obviousperitoneal signs, no palpable pulsatile abdominal masses, no auscultated abdominal bruit : No CVAT Extremities: No edema Neuro: No new focal neurological deficits, cranial nerves II through XII intact,5/5 strength in all present extremities. Intact sensation to light touch in all present extremities, 2+ reflexes bilateral patella tendons. Skin: No rash or lesions noted MEDICAL DECISION MAKING: Chief Complaint: please see HPI External records reviewed: Reviewed prior ED record from 2023 for which patient was evaluated for abdominal pain Factors affecting care: none Social determinants of health: none History obtained from others: none Consults: Internal medicine MDM Narrative: The patient is initially hypertensive with blood pressure 240/138, tachycardic. To be alcohol withdrawal I obtained labs for medical clearance ALL IMAGES (IF OBTAINED) HAVE BEEN PERSONALLY REVIEWED AND INTERPRETED BY MYSELF. CBC pending Serum alcohol negative BMP without significant electrolyte abnormalities, hyponatremia likely secondaryto beer potomania, noted metabolic acidosis likely secondary to alcohol ketoacidosis, no acute kidney injury Urine tox screen positive cannabinoids otherwise negative On re-evaluation patient's blood pressure improved to 156/101 heart rate improved to 95 he is appropriate for admission with a ramp program Discussed with hospitalist who agreed admit the patient. The patient and/or family, caregivers express understanding. The patient and/orfamily, caregivers agrees with the plan. Shared decision making: I will have a discussion with the patient and or visitors regarding risk/benefits of further testing or admission. They will be made aware of of the risk/benefits inherent in this decision they will be given the opportunity to voice understanding. Total critical care time today provided was at least 0 minutes. This excludes separately billable procedures. Critical care time (if documented) is secondary to the patient having high probability of clinically significant/life threatening deterioration in the patient's condition which required my urgent intervention. Impression: 1. Alcohol abuse 2. Encounter for alcohol detox 3. Hyponatremia Dispo: Admit to [facility] This note was generated with [employer] software. It may contain incorrectwords, spelling, and punctuation that were not noted in review of the chart prior to signing. Discharge Plan Triage Chief Complaint: Substance Abuse ED Provider: Gerald Lenz Dx/Rx/DC Orders Prescriptions: No Action albuterol sulfate 90 mcg/actuation HFA aerosol inhaler 2 puff inhalation Q4H PRN PRN (Reason: wheezing) albuterol sulfate [Ventolin HFA] 90 mcg/actuation HFA aerosol inhaler 1 - 2 puff inhalation Q4H PRN PRN (Reason: Wheezing) Qty: 1 0RF Primary Care Provider: Care Physician,Edie Primary Referrals: NOT,DEFINED [Non-Staff, None] Print Language: Citizen Of [place] What to do if you have Problems For any increased pain, shortness of breath, bleeding, nausea or vomiting, chestpain, or any unexpected problems, contact your Primary Care Provider. Call [facility] ([phone]) or report to the closest Emergency Room. Call 911 if necessary. 02/27/25 1520 <Electronically signed by Gerald Lenz DO> Cosigner Signature (if applicable): CC: No Primary Care Physician ~ Signed [facility] Work Phone: 1(951) 175-739410-02-2025 Evaluation note* Diagnosis Onset Date Resolution Status Admit Date Alcohol withdrawal acute Octobe r 2024 3:01pm Desire for detoxification acute February 27, 2025 3:01pm Alcohol abuse inactive February 3:01pm [facility] Work Phone: 1(825) 469-740210-02-2025 Discharge summary [facility] Medical Records Department [address] [place] [address] Emergency Department Summary 02/27/25 MR#: [id number] Acct: [id number] Name: YOGI SAWYER Rep #:[id number] : 1970 54 From: Gerald Kulkarni PCP: Care Physician,No Primary Status :REG ER Location: ED HPI History of Present Illness Chief Complaint: Substance Abuse PFSH PFSH Home Medications ?Medication ?Instructions ?Recorded ?Last Taken ?Type albuterol sulfate 90 mcg/actuation 2 puff inhalation Q 4H PRN PRN 11/06/23 Unknown History aerosol inhaler wheezing albuterol sulfate 90 mcg/actuation 1 - 2 puff inhalati on Q4H PRN PRN 11/06/23 Unknown Rx aerosol inhaler (Ventolin HFA) Wheezing #1 inh Allergy/AdvReac Type Severity Reaction Status Date / Time No Known Allergies Allergy Verified 02/27/25 12:40 Social History Smoking Status: Heavy Smoker (>10/day) EXAM Physical Exam Const Vital Signs: 02/27/25 12:38 Temperature 96.6 F L Temperature Source Temporal Pulse Rate 104 H Respiratory Rate 18 Blood Pressure 240/138 H Blood Pressure Mean 172 Pulse Ox 96 Oxygen Delivery Method Room Air MDM [facility] MDM Narrative Medical decision making narrative: HISTORY OF PRESENT ILLNESS: Chief complaint: Alcohol detox 54-year-old male history of alcohol abuse, COPD presents with concern for alcohol abuse. Request admission for detox. No physical complaints at this time. No headache, no chest pain, abdominal pain, back pain or focal weakness REVIEW OF SYSTEMS: Pertinent positives: None reported Pertinent negatives: As per HPI PHYSICAL EXAM: Nursing triage notes reviewed, Vital signs reviewed Constitutional: please see mdm HENT: MMM Eyes: Pupils equal round and reactive to light, Extraocular muscles intact Neck: No stridor, no JVD, full neck ROM Lungs: Clear to auscultation, No wheezing or rales. No increased work of breathing, no conversational dyspnea, no accessory muscle use, no nasal flaring. No respiratory distress noted Heart: Regular rate and rhythm, No murmurs, No rubs and No gallops, 2+ distal pulses (radial, femoral, posterior tibial) in all extremities Abdomen: Soft, there is no tenderness, rigidity, rebound or guarding, no obviousperitoneal signs, no palpable pulsatile abdominal masses, no auscultated abdominal bruit : No CVAT Extremities: No edema Neuro: No new focal neurological deficits, cranial nerves II through XII intact,5/5 strength in allpresent extremities. Intact sensation to light touch in all present extremities, 2+ reflexes bilateral patella tendons. Skin: No rash or lesions noted MEDICAL DECISION MAKING: Chief Complaint: please see HPI External records reviewed: Reviewed prior ED record from 2023 for which patient was evaluated for abdominal pain Factors affecting care: none Social determinants of health: none History obtained from others: none Consults: Internal medicine MDM Narrative: The patient is initially hypertensive with blood pressure 240/138, tachycardic. To be alcohol withdrawal I obtained labs for medical clearance ALL IMAGES (IF OBTAINED) HAVE BEEN PERSONALLY REVIEWED AND INTERPRETED BY MYSELF. CBC pending Serum alcohol negative BMP without significant electrolyte abnormalities, hyponatremia likely secondaryto beer potomania, noted metabolic acidosis likely secondary to alcohol ketoacidosis, no acute kidney injury Urine tox screen positive cannabinoids otherwise negative On re-evaluation patient's blood pressure improved to 156/101 heart rate improved to 95 he is appropriate for admission with a ramp program Discussed with hospitalist who agreed admit the patient. The patient and/or family, caregivers express understanding. The patient and/orfamily, caregivers agrees with the plan. Shared decision making: I will have a discussion with the patient and or visitors regarding risk/benefits of further testing or admission. They will be made aware of of the risk/benefits inherent in this decision they will be given the opportunity to voice understanding. Total critical care time today provided was at least 0 minutes. This excludes separately billable procedures. Critical care time (if documented) is secondary to the patient having high probability ofclinically significant/life threatening deterioration in the patient's condition which required my urgent intervention. Impression: 1. Alcohol abuse 2. Encounter for alcohol detox 3. Hyponatremia Dispo: Admit to [facility] floor This note was generated with [employer] dictation software. It may contain incorrectwords, spelling, and punctuation that were not noted in review of the chart prior to signing. Discharge Plan Triage Chief Complaint: Substance Abuse ED Provider: Gerald Lenz Dx/Rx/DC Orders Prescriptions: No Action albuterol sulfate 90 mcg/actuation HFA aerosol inhaler 2 puff inhalation Q4H PRN PRN (Reason: wheezing) albuterol sulfate [Ventolin HFA] 90 mcg/actuation HFA aerosol inhaler 1 - 2 puff inhalation Q4H PRN PRN (Reason: Wheezing) Qty: 1 0RF Primary Care Provider: Care Physician,No Primary Referrals: NOT,DEFINED [Non-Staff, None] Print Language: Citizen Of [place] What to do if you have Problems For any increased pain, shortness of breath, bleeding, nausea or vomiting, chestpain, or any unexpected problems, contact your Primary Care Provider. Call [facility] ([phone]) or report tothe closest Emergency Room. Call 911 if necessary. 02/27/25 1520 Cosigner Signature (if applicable): CC: No Primary Care Physician ~ Signed [facility]05-09-2025 NoteHNO ID: [id number] Author: SOFIE DONATO APRN.BLAKE Service: ? Author Type: Nurse Practitioner Type: Progress Notes Filed: 10/05/2024 20:27 Note Text: CHIEF COMPLAINT: Yogi is a 54-year-old male with a history of paranoia, presenting for evaluation of depression and anxiety. I reviewed past medical, surgical, social, and family histories today and updated chart. Allergies, chronic medications, and supplements were also reviewed. Recording using [employer] software for draft documentation of the visit was discussed with the patient/authorized claims service representative; all questions welcomed and answered. Patient/authorized claims service representative agreed to proceed Depression: - Reports lack [...] with mild paranoia by a psychiatrist in [place]. - Expresses frustration with the cost of [...] Normocephalic. EYES: PERRLA, EOMI, conjunctiva clear. EARS: [place] NEURO: Awake, alert and oriented x3, cranial nerves II-XII grossly intact, normal gait, no involuntary motions. A/P: 1. Current moderate episode of major depressive disorder, unspecified whether recurrent (HCC) (F32.1) 2. An (more content not included)...[facility]06-08-2023 History of Present illness Narrative* Ganga Newell MD - 11/03/2022 11:38 AM EDT HPI Yogi Sawyer is a 52 year [...] or electronic medical record. [facility] encounter[facility] Miscellaneous Notes* Telephone Encounter - Wanda Persaud - 10/27/2022 9:41 AM EDT The patient was seen today. Wanda Persaud * Telephone Encounter - Faye Humphreys MA - 10/27/2022 8:43 AM EDT Pt. Has apt. With [facility] today. Will given patients information at apt. I will also forward this message to [facility]. Faye Humphreys MA * Telephone Encounter - Dilma Jade MA - 10/26/2022 8:03 AM EDT Left a message for patient to call back Dilma Jade MA * Telephone Encounter - Sofie Donato APRN.CNP - 10/25/2022 5:07 PM EDT I placed the referral to chemical dependency but this is typically within the [facility] system. [facility] in [place] provides outpatient rehabilitation for alcohol and substance abuse. [phone]- [place] Please see if we can get him in with me this week for an appointment. * Telephone Encounter - Wanda Persaud - 10/21/2022 3:56 PM EDT The patient stopped by the office. He [...] Thank you. Wanda Persaud documented in this encounterMem[facility]06-[facility]-2023 Instructions* Patient Instructions* Sofie Donato APRN.CNP - 10/27/2022 9:09 AM EDT CENTRAL SCHEDULING [phone] documented in this encounterMem[facility] History of Present illness Narrative* Sofie Donato APRN.CNP - 10/27/2022 9:08 AM EDT CHIEF COMPLAINT: Yogi Sawyer is a 52 year old male who presents today to discuss his alcohol abuse and is requesting a referral to an outpatient rehabilitation program. He states he has been drinking alcohol sincethe age of 10 but heavily since high school. On average, he consumes at least a 12 pack of beer daily. He used to drink hard liquor as well but has tried staying away from that recently. He does statethat he can go 1-2 days without drinking at times without any side effects including delusions, tremors, N/V, etc. He states he has been on benders before and has had to wean himself down from liquorwith beer. He does have an extensive history [...] and family histories today and updated chart. Allergies,chronic medications, and supplements were also reviewed. The history is provided by the patient. No certified court/medical interpreter was used. Alcohol Problem Primary symptoms include agitation. Primary symptoms include no confusion, no somnolence, no loss of consciousness, no seizures, no weakness, no delusions, no hallucinations, no self-injury, no violence, and no intoxication. This is a chronic problem. The current episode started more than 1 week ago. Suspected agents include alcohol.Pertinent negatives include no fever, no injury, no nausea, no vomiting, no bladder incontinence and no bowel incontinence. Associated medical issues do not include addiction treatment, withdrawal syndrome, chronic illness, mental illness or psychiatric history. PAST MEDICAL HISTORY Diagnosis Date COPD (chronic obstructive pulmonary disease) ([facility]) ETOH abuse History reviewed. No pertinent surgical [...] mL injection (DEFINITY) INTRAVENOUS DIRECTED PRN Sofie Donato APRN.BLAKE sodium chloride 0.9 % (flush) 10 mL (BD POSIFLUSH) 10 mL INTRAVENOUS DIRECTED PRN Sofie Donato, BROADBAND ENGINEER.SPECIAL EDUCATION PARA PROFESSIONAL Review of Systems Constitutional: Negative for appetite [...] a phone encounter on 10/25/22. Information given julian outpatient rehabilitation program ([facility]) given to the patient in office. He was also given central scheduling number to schedule with [facility] chemical dependency program if he is [...] patient. Sofie Donato APRN.CNP documented in this encounterMemorial [facility]04-27-2023 Instructions* Patient Instructions* Sofie Donato APRN.CNP - 09/22/2022 11:39 AM EDT Astepro Azelastine Hydrochloride Allergy Steroid Free Antihistamine Nasal [place] - 60 Metered Sprays [place] [facility] Address [address] [place] [address] Phone Call our [place] office at Dr. Ganga Farfan [facility] Building Mail Code [id number] [address] [place] [address] Appointment:[phone] Desk:[phone] documented in this encounterMemorial [facility]04-27-[facility]23 History of Present illness Narrative* Sofie Donato APRN.CNP - 09/22/2022 11:28 AM EDT CHIEF COMPLAINT: Yogi Sawyer is a 52 [...] history is provided by the patient. No certified court/medical interpreter was used. Sinus Problem This is a chronic problem. The current episode started more than 1 year ago. The problem occurs constantly. The problem has been unchanged. Associated symptoms include congestion and coughing. Pertinent negatives include no chills, diaphoresis, fatigue, fever, headaches, sore throat, swollen glandsor vertigo. PAST MEDICAL HISTORY Diagnosis Date COPD (chronic obstructive pulmonary disease) ([facility]) ETOH abuse History reviewed. No pertinent surgical [...] DEPRESSION SCREENING/ASSESSMENT New medication(s) prescribed today: Yes: Jalen. Discussed new medication dosage, usage, goals of [...] patient. Sofie Donato APRN.CNP [facility]* Diagnosis Chronic rhinosinusitis- Primary Unspecified sinusitis (chronic) Loss of smell Disturbances of sensation of smell and taste Loss of taste Disturbances of sensation of smell and taste Hearing deficit, bilateral SOB (shortness of breath) Shortness of breath Cigarette smoker Tobacco use disorder Screening for depression documented in this encounter [facility]* Diagnosis ETOH abuse- Primary Alcohol abuse, unspecified documented in this encounter [facility] note* Diagnosis ETOH abuse- Primary Alcohol abuse, unspecified Uncomplicated alcohol dependence (HCC) Other and unspecified alcohol dependence, unspecified drinking behavior Heart murmur Undiagnosed cardiac murmurs documented in this encounter [facility] note* Diagnosis Chronic rhinitis- Primary documented in this encounter [facility] for referral (narrative)* Outpatient Procedure (Routine) - Pending Review Specialty Diagnoses / Procedures Referred By Contac t Referred To Contact [facility] Diagnoses Heart murmur Procedures ECG COMPLETE ECG ROUTINE ECG W/LEAST 12 LDS W/I&R Sofie Donato APRN.CNP [address] [place] [address] [facility] [place] [address] [place] [address] Referral ID Status Reason Start Date Expiration Date Visits Requested Visits Authorized [id number] Pending Review Auto-Generat ed Referral 10/27/2022 10/27/2023 1 1 * Outpatient Procedure (Routine) - Pending Review Specialty Diagnoses / Procedures Referred By Contac t Referred To Contact [facility] Diagnoses Heart murmur Procedures ECHO ECHO TTHRC R-T 2D W/WOM-MODE COMPL SPEC&COLR D Sofie Donato APRN.CNP [address] [place] [address] [facility] [place] [address] [place] [address] Referral ID Status Reason Start Date Expiration Date Visits Requested Visits Authorized [id number] Pending Review Auto-Generat ed Referral 10/27/2022 10/27/2023 1 1 [facility] HospitalReason for referral (narrative)No reason for referral information availableWSt. Francis Hospital Work Phone: Summary Purpose Family History No Family History Records FoundNo Family History Records FoundNo Family History Records FoundNo Family History Records FoundNo Family History Records Found Advance Directives No Advanced Directives Records Found Advance Directive Response Recorded Date/ Time Do you have a Healthcare Power of Imaging Technician? No February 27, 2025 1:06pm Reason for Referral Specialty Diagnoses / Procedures Referred By Contact Referred To Contact Ent - Otolaryngology / [facility] Department Diagnoses Hearing deficit, bilateral Chronic rhinosinusitis Procedures CONSULT TO ENT OFFICE/OUTPATIENT [facility] 60-74 MINUTES Sofie Donato APRN.SPECIAL EDUCATION PARA PROFESSIONAL [address] [place] [address] Ganga Newell MD [address] [address] Referral ID Status Reason Start Date Expiration Date Visits Requested Visits Authorized [id number] Authorized PCP Requested Referral 09/22/2022 09/22/2023 1 1 Specialty Diagnoses / Procedures Referred By Contac t Referred To Contact Diagnoses SOB (shortness of breath) Sofie Donato APRN.SPECIAL EDUCATION PARA PROFESSIONAL [address] [place] [address] Referral ID Status Reason Start Date Expiration Date V isits Requested Visits Authorized [id number] Authorized 08/23/2022 09/22/2023 1 1 Specialty Diagnoses / Procedures Referred By Contac t Referred To Contact [facility] Department Diagnoses ETOH abuse Procedures CONSULT TO CHEMICAL DEPENDENCY Sofie Donato APRN.SPECIAL EDUCATION PARA PROFESSIONAL [address] [place] [address] [place] [address] Referral ID Status Reason Start Date Expiration Date Visits Requested Visits Authorized [id number] Ref Not Required PCP Requested Referral 10/25/2022 10/25/2023 1 1 Chief Complaint and Reason for Visit Chief Complaint Admit Date Alchohol detox February 27, 2025 3: 01pm Reason for Visit Admit Date Alcohol withdrawal February 27, 2025 3: 01pm Desire for detoxification February 27, 025 3:01pm Alcohol abuse February 27, 2025 3: 01pm Additional Source Comments (unrecognized sect ion and content) No Status Records FoundNo Status Records FoundNo Status Records FoundNo Status Records FoundNo Status Records Found INFORMATION SOURCE (unrecogn ized section and content) DATE CREATED AUTHOR 07/17/2018 [facility] DATE CREATED AUTHOR AUTHOR'S ORGANIZ ATION 03/03/2021 [facility] DATE CREATED AUTHOR AUTHOR'S ORGANIZ ATION 10/11/2024 [facility] DATE CREATED AUTHOR AUTHOR'S ORGANIZ ATION 02/11/2025 [facility] DATE CREATED AUTHOR AUTHOR'S ORGANIZ ATION 03/16/2025 [facility] <item> Privacy Markings (unrecogniz ed section and [...] or prosecute any alcohol or drug abuse patient.[facility] HospitalIn the event this information is protected by the Federal Confidentiality of Alcohol and Drug Abuse Patient Records regulations: The Federal rules restrict any use of the information to criminally investigate or prosecute any alcohol or drug abuse patient.[facility] HospitalIn the event this information is protected by the Federal Confidentiality of Alcohol and Drug Abuse Patient Records regulations: The Federal rules restrict any use of the information to criminally investigate or prosecute any alcohol or drug abuse patient.[facility] HospitalIn the event this information is protected by the Federal Confidentiality of Alcohol and Drug Abuse Patient Records regulations: The Federal rules restrict any use of the information to criminally investigate or prosecute any alcohol or drug abuse patient.[facility] Reason for Visit (unrecogniz ed section and [...] Chronic rhinosinusitis Procedures CONSULT TO ENT OFFICE/OUTPATIENT [facility] 60-74 MINUTES Sofie Donato, BROADBAND ENGINEER.SPECIAL EDUCATION PARA PROFESSIONAL [address] [place] [address] Ganga Newell MD [address] [address] Referral ID Status Reason Start Date Expiration Date V isits Requested Visits Authorized [id number] Closed PCP Requested Referral 09/22/2022 09/22/2023 1 1 Care Teams (unrecognized sec tion and content) Pv Design Engineer Relationship Specialty Start Date End Date Sofie Donato, BROADBAND ENGINEER.SPECIAL EDUCATION PARA PROFESSIONAL [address] [place] [address] PCP - General Family Medicine 06/10/19 Pv Design Engineer Relationship Specialty Start Date End Date Sofie Donato, BROADB[employer] ENGINEER.SPECIAL EDUCATION PAR[employer] PROFESSIONAL [address] [place] [address] PCP - General Family Medicine 06/10/19 Pv Design Engineer Relationship Specialty Start Date End Date Sofie Donato, BROADBAND ENGINEER.SPECIAL EDUCATION [employer] PROFESSIONAL [address] [place] [address] PCP - General Family Medicine 06/10/19 Pv Design Engineer Relationship Specialty Start Date End Date Sofie Donato, BROADBAND ENGINEER.SPECIAL EDUCATION [employer] PROFESSIONAL [address] [place] [address] PCP - General Family Medicine 06/10/19 Team Status: Active Member Role/Relationship Status Dates No Primary Care Physician Primary care physician Activ e Team Status: Active Member Role/Relationship Status Dates Dr. Gerald Lenz , DO Emergency Departm ent Physician Active Start: February 27, 2025 No Primary Care Physician Primary care physician Activ e Start: February 27, 2025 Dr. Howie Payne DO Admitting physician Active Start: February 27, 2025 Dr. Howie Payne , DO Attending physician Active Start: February 27, 2025 Goals (unrecognized section and content) Type Treatment Intervention Code Status: Full Code - VerifiedDiscussed with: Patient FOR RECORDS PERTAINING TO PATIENTS WHO ARE [...] BE BASED ON THE PRIMARY CLINICAL RECORDS. [facility]. provides no warranty or guarantee of the accuracy or completeness of information in this document.
--- NOTE | 2025-03-16 10:18 | RAD_ITS ---
PROCEDURE: FOOT MIN 3 VIEWS 03/16/2025 REASON FOR EXAM: PAIN TECHNIQUE: Procedure Code: RADFO Modality: DX Procedure: FOOT MIN 3 VIEWS Laterality: Left COMPARISON: None. FINDINGS: Bones: No acute bony abnormalities. Joints: Unremarkable. Soft tissues: No soft tissue abnormalities. RAD/Foot min 3 Views IMPRESSION: No acute osseous abnormalities. Reading Location: [id number]
--- NOTE | 2025-03-16 10:18 | RAD_ITS ---
PROCEDURE: CHEST PA AND LATERAL 03/16/2025 REASON FOR EXAM: COUGH TECHNIQUE: Procedure Code: RADCXR Modality: DX Procedure: CHEST PA AND LATERAL COMPARISON: None FINDINGS: The cardiomediastinal silhouette is within normal limits. No consolidation in either lung. No sizable pleural effusion or pneumothorax. The bony thorax is intact. RAD/Chest PA and Lateral IMPRESSION: No acute process in the chest Reading Location: [id number]
[2025-03-16] MEDS: Albuterol Sulfate 8 gm Inhaler (60 puffs) 2 PUFF INHALATION (12:52)
== END 2025-03-16 12:54 | disposition home or self-care (01) ==
PROVIDERS: Emergency Provider Emergency Medicine; PCP Nurse Practitioner Family; Visit Provider Emergency Medicine
DX: J06.9 Acute upper respiratory infection, unspecified (principal); M79.672 Pain in left foot; F17.200 Nicotine dependence, unspecified, uncomplicated; R05.9 Cough, unspecified
CPT/HCPCS: 71046; 73630; 99283